=== PATIENT | female | born 1985 | race Hispanic/Latino ===

== ENCOUNTER 2019-04-10 16:56 | Emergency (ER) | payer OTHER, SELFPAY ==
[2019-04-10 17:05] VITALS: BP 133/93; PULSE 82; RESP 14; TEMP 36.9; O2SAT 100
--- NOTE | 2019-04-10 19:07 | ED.URI ---
HPI - URI/Sore Throat General Chief Complaint: Upper Respiratory Symptoms Stated Complaint: SINUS INFECTION Time Seen by Provider: 04/10/19 18:07 Source: patient Mode of arrival: Ambulatory Limitations: no limitations History of Present Illness HPI Narrative: Patient is a 33-year-old female here for evaluation of approximately 12 days of tenderness in her sinuses around her forehead and also under her eyes. She states that she has been having headaches. It is sore when she touches the area. Sore when she bends over. No specific fevers. Does feel congested. Has been taking decongestants and also Tylenol without any improvement in her symptoms. Related Data Previous Rx's Medication Instructions Recorded amoxicillin-pot clavulanate 1 tab PO BID 10 Days #20 tab 04/10/19 [Augmentin] Review of Systems Constitutional Constitutional: Denies fever(s) and Reports headache(s) ENT Ears, Nose, Mouth, and Throat: Denies change in voice, Denies dental pain, Denies vertigo, Denies dizziness, Reports facial pain, Reports headache(s), Reports nasal congestion, Reports nasal discharge, Denies neck pain, Denies disequilibrium, Denies tinnitus, Reports sinus pain, Reports sinus pressure, Denies sore throat and Denies throat swelling Cardiovascular Cardiovascular: Denies chest pain and Denies dyspnea Respiratory Respiratory: Denies cough and Denies dyspnea Musculoskeletal Musculoskeletal: Denies arthralgias and Denies neck pain Integumentary/Breasts Skin/Breast: Denies rash Neurologic Neurologic: Denies behavioral changes, Denies vertigo, Denies dizziness, Reports headache(s) and Denies disequilibrium Psychiatric Psychiatric: Denies behavioral changes Hematologic/Lymphatic Hematologic/Lymphatic: Denies easy bleeding and Denies easy bruising Allergic/Immunologic Allergic/Immunologic: Denies throat swelling Patient History Medical History Diarrhea (Inactive) (Inactive) Social History Smoking Status: Never smoker Smoking Status: Never smoker Exam Initial Vital Signs Initial Vital Signs: Vital Signs Temperature 98.5 F 04/10/19 17:05 Pulse Rate 82 04/10/19 17:05 Respiratory Rate 14 04/10/19 17:05 Blood Pressure 133/93 H 04/10/19 17:05 Pulse Oximetry 100 04/10/19 17:05 Const General: cooperative, comfortable and well developed Orientation: alert and awake HENMT Head: normal to inspection and normocephalic Ears: TM's normal bilaterally Nose: external nose normal Face and sinus: sinuses tender and sinus tenderness frontal and maxillary Teeth and gingiva: dentition normal Neck Neck: no meningeal signs Resp Effort & Inspection: normal respiratory effort Auscultation: clear to auscultation bilaterally Cardio Rate: regular rate Rhythm: regular rhythm GI Inspection: non-distended Palpation: soft and No tender Skin Lesions: no lesions Rashes: no rashes Neuro General: alert, awake and oriented x3 Cognition: normal cognition Speech: speech normal Extrem General: normal to inspection and capillary refill normal Psych Appearance: grossly normal and well kempt Course Vital Signs Vital signs: Vital Signs - 8 hr 04/10/19 19:27 Pulse Rate 93 H Respiratory Rate 12 Blood Pressure [Right Arm] 126/94 H Pulse Oximetry 98 MDM - URI/Sore Throat MDM Narrative Medical decision making narrative: Patient has had almost 2 weeks of consistent symptoms. She has been taking decongestants at home without any improvement of her symptoms. Is tender to palpation over the frontal maxillary sinuses here in the ER. Had a long discussion with the patient regarding her symptoms. We did discuss the use of antihistamine such as Claritin or Clarisse. We also discussed the use of Flonase or Nasonex. I did advise her that I would recommend she continue to use these medications. Given the length of her symptoms and the severity of her symptoms I did give her prescription for antibiotics. Discussed return precautions and follow-up instructions. She expressed understanding and agreement with plan. Discharge Plan Departure Patient Disposition: Home Clinical Impression: Sinusitis Qualifiers: Sinusitis location: maxillary Chronicity: unspecified Qualified Code(s): J32.0 - Chronic maxillary sinusitis Discharge Date/Time: 04/10/19 19:30 Instructions: DI for Sinusitis Activity Restrictions/Additional Instructions: Recommend that you start on either Claritin or Calrisse like we discussed. Take the antibiotics as directed. Return to the ER for any new or worsening symptoms. Prescriptions: New amoxicillin-pot clavulanate [Augmentin] 875-125 mg tablet 1 tab PO BID 10 Days Qty: 20 RF: 0
[2019-04-10 19:27] VITALS: BP 126/94; PULSE 93; RESP 12; O2SAT 98
== END 2019-04-10 19:30 | disposition home or self-care (01) ==
PROVIDERS: Emergency Provider Emergency Medicine
DX: J32.0 Chronic maxillary sinusitis (principal)
CPT/HCPCS: 99283

== ENCOUNTER → 2019-05-31 13:41 | Outpatient (CLI) | payer OTHER, SELFPAY ==
--- NOTE | 2019-05-31 | DI.MG.S_ITS ---
BILATERAL DIGITAL DIAGNOSTIC MAMMOGRAM 3D/2D: 05/31/2019 CLINICAL: Baseline exam. Right breast mass. Family history of breast cancer. No prior exams were available for comparison. The tissue of both breasts is extremely dense, which lowers the sensitivity of mammography. There is a focal asymmetry with grouped calcifications in the right breast at 9 o'clock middle depth. This correlates as palpated. There also are grouped heterogeneous calcifications in the right breast at 11 o'clock posterior depth. No other significant masses, calcifications, or other findings are seen in either breast. IMPRESSION: INCOMPLETE: NEEDS ADDITIONAL IMAGING EVALUATION The focal asymmetry in the right breast at 9 o'clock middle depth is indeterminate. The grouped heterogeneous calcifications in the right breast at 11 o'clock posterior depth are indeterminate. A targeted ultrasound of the right breast is recommended and will be performed immediately following this exam. This exam was interpreted at Station ID: [id number]. NOTE: For mammograms, a report in lay terms will be sent to the patient. Approximately 15% of breast malignancies will not be visualized mammographically. In the management of a palpable breast mass, a negative mammogram must not discourage biopsy of a clinically suspicious lesion. Electronically Signed By: Mariam Maloney M.D. lk/:05/31/2019 14:21:46 ACR BI-RADS Category 0: Incomplete [id number]
--- NOTE | 2019-05-31 | DI.US.S_ITS ---
ULTRASOUND OF RIGHT BREAST: 05/31/2019 CLINICAL: Palpable right breast lump (2 nodules seen on mammo...palp is one). Comparison is made to exam dated: 05/31/2019 [facility]. Color flow and real-time ultrasound of the right breast were performed on the areas of interest. Leslie scale images of the real-time examination were reviewed. There is a 0.8 cm x 0.5 cm x 0.8 cm irregular mass in the right breast at 10 o'clock anterior depth. This irregular mass is hypoechoic. This correlates as palpated and with mammography findings. There also is a 0.7 cm x 0.4 cm x 0.7 cm irregular mass in the right breast at 8 o'clock anterior depth. This irregular mass is hypoechoic. There is no definite mammographic or clinical correlate to this lesion. There is no definite sonographic correlate to the clustered calicifications at 11 o'clock at a posterior depth seen on mammogram. There are multiple lymph nodes with eccentric cortical thickening in the right axillary tail. IMPRESSION: HIGHLY SUGGESTIVE OF MALIGNANCY The 0.8 cm x 0.5 cm x 0.8 cm irregular mass in the right breast at 10 o'clock anterior depth is highly suggestive of malignancy. An ultrasound guided biopsy is recommended. The 0.7 cm x 0.4 cm x 0.7 cm irregular mass in the right breast at 8 o'clock anterior depth is highly suggestive of malignancy. An ultrasound guided biopsy is recommended. The multiple lymph nodes with eccentric cortical thickening in the right axillary tail are highly suggestive of malignancy. An ultrasound guided biopsy is recommended. After ultrasound guided biopsy is performed, evaluation for steroetactic biopsy of the calcifications at 11 o'clock can be made on clinical grouds. This exam was interpreted at Station ID: [id number]. SUMMARY: This was discussed with the patient by Dr. Rolon at the time of the exam. Electronically Signed By: Mariam jaimes/:05/31/2019 17:38:10 letter sent: Biopsy Required Ultrasound BI-RADS: 5 Highly suggestive of malignancy
--- NOTE | 2019-06-19 13:35 | ONC.MSW ---
Description: Initial Referral Navigation T/C Activity: Called pt to confirm that we've received her referral, introduced my role as navigator, and discussed ongoing assistance and support available in clinic. She has 3-small children, including an . Her is active duty [employer], and is applying to remain here in [place] for 1-more year, as leave. She explained that he was given transfer orders to relocate to [place] in July, but he's hoping to take a year off and care for the kids and her while she receives treatment. She will most likely need a medical status letter once they are ready to submit that packet, [employer] explained that we can certainly provide her with that when the time comes. Discussed the availability of the [facility], the [facility] Medical Relief Fund, and caregiver/pediatric support. Referred to scheduling for an urgent appt. time on 06/26. Pt will be getting her port placed tomorrow, and MRI later this week. [employer] will plan to meet with her at that time for initial f/f visit.
== END ==
PROVIDERS: PCP Family Medicine; Visit Provider Family Medicine
DX: R92.8 Other abnormal and inconclusive findings on diagnostic imaging of breast (principal); R92.1 Mammographic calcification found on diagnostic imaging of breast; N63.11 Unspecified lump in the right breast, upper outer quadrant; N63.13 Unspecified lump in the right breast, lower outer quadrant; Z80.3 Family history of malignant neoplasm of breast
CPT/HCPCS: 76642; 77066; G0279

== ENCOUNTER → 2019-06-12 12:30 | Outpatient (CLI) | payer OTHER, SELFPAY ==
--- NOTE | 2019-06-12 | DI.MG.S_ITS ---
UNILATERAL RIGHT DIGITAL DIAGNOSTIC MAMMOGRAM POST-NEEDLE BIOPSY: 06/12/2019 CLINICAL: Right breast mass-post clip. Comparison is made to exams dated: 05/31/2019 ultrasound and 05/31/2019 mammogram - [facility]. The tissue of right breast is extremely dense, which lowers the sensitivity of mammography. There is a marker clip in the appropriate position in the right breast at 9 o'clock anterior depth. This marker clip placement is at the biopsy site. There also is a marker clip in the appropriate position in the right breast at 8 o'clock anterior depth. This marker clip placement is at the biopsy site. Additionally, there is a marker clip in the appropriate position in the right axilla. This marker clip placement is at the biopsy site. IMPRESSION: POST PROCEDURE MAMMOGRAM FOR MARKER PLACEMENT There was a successful marker clip placement in the right breast at 9 o'clock anterior depth. There was a successful marker clip placement in the right breast at 8 o'clock anterior depth. There was a successful marker clip placement in the right axilla. This exam was interpreted at Station ID: [id number]. NOTE: For mammograms, a report in lay terms will be sent to the patient. Approximately 15% of breast malignancies will not be visualized mammographically. In the management of a palpable breast mass, a negative mammogram must not discourage biopsy of a clinically suspicious lesion. Electronically Signed By: Nabil Rolon M.D. aty/:06/12/2019 18:20:09 ACR BI-RADS Category Post-procedure mammogram for marker placement
--- NOTE | 2019-06-12 | PATH_ITS ---
[facility] Accession Number: [id number] . 01 Material submitted: . lymph node - RIGHT AXILLARY LYMPH NODE . 01 Diagnosis: Right Axillary Lymph Node, Core Biopsy: Metastatic mammary carcinoma, ductal type. [facility] 06/15/2019 1209 Local . 01 Comment: The core biopsies conisist of an apparent lymph node partially effaced by a metastatic adenocarcinoma forming gland and cords. The core biopsy also contains attached adipose tissue; however, determining whether the tumor extends beyond the capsule into adipose tissue is not clear in these particular sections. A limited panel of *immunostains is performed to confirm breast origin, with controls stained appropriately. The tumor shows uniform expression with the assembler lay ups factor GATA3 and variable expression with estrogen receptor, findings which confirm breast origin, in this particular clinical setting (the patient's results from right breast core biopsies are noted, [id number], 06/12/2019). . * This test was developed and its performance characteristics determined by [employer]. It has not been cleared or approved by the U.S. Food and Drug Administration. The FDA has determined that such clearance or approval is not necessary. This test is used for clinical purposes. It should not be regarded as investigational or for research. . 01 Electronically signed: . Tomasa Becker MD, Pathologist NPI- [id number] . 01 Gross description: . Received in one formalin-filled container, labeled with the patient's name and designated right axillary lymph node, are multiple 0.1 cm in diameter, cylindrical-shaped portions of tissue which range in length from 0.1 cm to 0.5 cm. The specimen is entirely submitted in one cassette. ([id number]) /[facility] 06/13/2019 0219 Local . 01 Pathologist provided ICD-10: C77.9 . 01 CPT . 495726, W66443, S36860 Performed at: 01 [facility] [address], [place], [place] [id number] MD Howard Mireles MD Phone: [phone]
--- NOTE | 2019-06-12 | PATH_ITS ---
[facility] Accession Number: [id number] . 01 Material submitted: . PART A: breast - RIGHT BREAST MASS PART B: breast - RIGHT BREAST MASS 8:00 . 01 Clinical history: . RIGHT BREAST MASS . 02 Diagnosis: A. Right Breast Mass, Needle Core Biopsy: Invasive carcinoma with the following features: 1. Mitch grade: 3 of 3 (tubules 3/3; nuclei 3/3; mitotic activity 2/3). 2. Greatest linear extent: 8 mm. 3. Carcinoma in situ: Not identified. 4. Microcalcifications: Not identified. 5. Lymph-vascular invasion: Not identified. 6. Prognostic markers: Please see microscopic description. . B. Right Breast Mass at 8 o'clock: Infiltrating carcinoma with the following features: 1. Scuddy grade: 3 of 3 (tubules 3/3; nuclei 3/3; mitotic activity 2/3). 2. Greatest linear extent: 7 mm. 3. Carcinoma in situ: Not identified. 4. Microcalcifications: Not identified. 5. Lymph-vascular invasion: Suspicious foci present. 6. Prognostic markers: Please see microscopic description. [facility] 06/14/2019 1502 Local . 02 Comment: life assurance representative performed by Dr. Kane Son. . Results discussed with Dr. Pinzon on 06/03/2019 at approximately 3:30 p.m. . 02 Electronically signed: . Ellen Parra MD, Pathologist NPI- [id number] . 01 Gross description: . Received two formalin-filled containers, both labeled with the patient's name: . A. In a container labeled #1, the specimen is received with a plastic filter in container, sample loose in container and consists of multiple yellow-sauceda portions of tissue which range in size from less than 0.1 cm to 0.7 x 0.2 x 0.2 cm. The specimen is filtered, wrapped, and entirely submitted in cassette A. B. In a container labeled #2, the specimen is received with a plastic filter in container, sample loose in container and consists of multiple urbina-sauceda to yellow-sauceda portions of tissue which range in size from less than 0.1 cm to 1.5 x 0.2 x 0.2 cm. The specimen is filtered and entirely submitted in cassette B. . Collection date: 06/12/19. Collection time per containers: Part A - 1:20 p.m., Part B - 1:40 p.m. Total fixation time: Approximately 13 hours. (DC:[id number]) /[facility] 06/13/2019 0230 Local . 02 Microscopic: . Immunohistochemical stain for e-cadherin is performed on blocks A1 and B1 with the following findings. The controls showed appropriate reactivity: . RESULTS: Block A1: E-cadherin: Diffusely and strongly positive. This staining pattern supports the diagnosis of infiltrating ductal carcinoma. . . Block B1: E-cadherin: Diffusely and strongly positive. This staining pattern supports the diagnosis of infiltrating ductal carcinoma. . CAP BREAST BIOMARKER REPORT: . Part A: . Estrogen Receptor (ER) Status: Positive, approximately 75% of tumor nuclei. Average intensity of staining: Moderate. Primary antibody: SP1 Progesterone Receptor (PgR) Status: Positive, approximately 30% of tumor nuclei. Average intensity of staining: Moderate. Primary antibody: 1E2 HER2 (by immunohistochemistry): Positive at 3+. Primary antibody: 4B5 . Cold Ischemia and Fixation Times: Meets requirements in the latest version of the ASCO/CAP guidelines. Testing performed on Block Number: A1 . . Part B: . Estrogen Receptor (ER) Status: Positive, approximately 30% of tumor nuclei Average intensity of staining: Weak to moderate. Primary antibody: SP1 Progesterone Receptor (PgR) Status: Positive, approximately 15% of tumor nuclei Average intensity of staining: Weak to moderate. Primary antibody: 1E2 HER2 (by immunohistochemistry): Positive at 3+. Primary antibody: 4B5 . Cold Ischemia and Fixation Times: Meets requirements in the latest version of the ASCO/CAP guidelines. Testing performed on Block Number: B1 . TECHNICAL NOTE: The scoring criteria for breast biomarkers by immunohistochemistry is based on the current ASCO/CAP guidelines (Kirt et al, Arch Pathol Lab Med 2010: 134(6): 907-922 / Steph Ernandez al, Arch Pathol Lab Med 2014: 138(2): 241-256). Deparaffinized sections of formalin fixed tissue (along with appropriate positive controls) are incubated with the above antibody(s). Using the automated [place] stainer, tissue is incubated with the designated antibody* which is then localized by a non-biotin, dual polymer detection system. The external controls are reviewed for appropriate reactivity and found to be adequate. Results on the target cell population are indicated above. These tests have not been validated on decalcified tissue. * This test was developed and its performance characteristics determined by [facility]. It has not been cleared or approved by the U.S. Food and Drug Administration. The FDA has determined that such clearance or approval is not necessary. This test is used for clinical purposes. It should not be regarded as investigational or for research. . 02 Pathologist provided ICD-10: C50.911 . 02 CPT . 058251, 366103, D12303, 625466, 276115, 760312, 878915, 572182, 392675 Performed at: 01 [facility] [address] [place] [address], [place], [place] [id number] MD Howard Mireles MD Phone: [phone] Performed at: 02 [facility] [place] [address] [place], [place] [id number] MD Ximena Beckett MD Phone: [phone]
--- NOTE | 2019-06-12 | DI.US.S_ITS ---
ULTRASOUND GUIDED BIOPSY RIGHT BREAST WITH MARKING DEVICE INSERTED AND POST MAMMOGRAPHIC IMAGIN06/12/2019 CLINICAL: Right axillary node biopsy. PATIENT CONSENT: Risks (minor bleeding, infection, vasovagal reaction and repeat procedure), benefits and alternatives were explained to the patient and written informed consent was obtained. Correlation is made to exams dated: 05/31/2019 ultrasound and 05/31/2019 mammogram [facility]. An ultrasound guided biopsy using real-time ultrasound was performed for the oval lymph node located in the right axilla. This was described on the previous ultrasound report. The skin was prepped in the usual manner. Local anesthetic was administered to the access site. The abnormality was approached at 6 o'clock. An 18 gauge biopsy needle was placed adjacent to the abnormality through an introducer device under ultrasound guidance. Once the needle was documented to be in the correct location, six specimens were obtained using the [employer] biopsy device. A Vision clip was inserted into the biopsy cavity. A sterile dressing was applied to the access site. Post procedure mammographic imaging demonstrates the location device at the targeted area. The specimens were sent to the laboratory for pathological analysis. IMPRESSION: ULTRASOUND GUIDED BIOPSY MALIGNANT Ultrasound guided biopsy of the lymph node in the right axillary tail was successful. Pathology indicates malignant metastatic to axillary lymph nodes, mammary carcinoma ductal type. Pathology results are concordant with imaging findings. A surgical/oncologic consultation is recommended. This exam was interpreted at Station ID: [id number]. Nabil Rolon M.D. aty/:06/20/2019 07:14:41
--- NOTE | 2019-06-12 12:36 | DI.US.S_ITS ---
MULTIPLE ULTRASOUND GUIDED BIOPSIES RIGHT BREAST USING VACUUM DEVICE WITH MARKING DEVICES INSERTED AND POST MAMMOGRAPHIC IMAGIN06/12/2019 CLINICAL: Right breast masses x 2. PATIENT CONSENT: Risks (minor bleeding, infection, vasovagal reaction and repeat procedure), benefits and alternatives were explained to the patient and written informed consent was obtained. Correlation is made to exams dated: 05/31/2019 ultrasound and 05/31/2019 mammogram [facility]. An ultrasound guided biopsy using real-time ultrasound was performed for the palpable 0.8 cm x 0.5 cm x 0.8 cm irregular shaped mass located in the right breast at 9 o'clock anterior depth. This was described on the previous mammography and ultrasound reports. The skin was prepped in the usual manner. Local anesthetic was administered to the access site. A skin júnior was made in the breast. The abnormality was approached from the lateral aspect. A 13 gauge biopsy needle was placed adjacent to the abnormality under ultrasound guidance. Once the needle was documented to be in the correct location, six specimens were obtained using the [employer] biopsy system. A Vision clip was inserted into the biopsy cavity. A sterile dressing was applied to the access site. Post procedure mammographic imaging demonstrates the location device at the targeted area. The specimens were sent to the laboratory for pathological analysis. A second ultrasound guided biopsy using real-time ultrasound was performed for the irregular shaped mass located in the right breast at 8 o'clock anterior depth. This was described on the previous ultrasound report. The skin was prepped in the usual manner. Local anesthetic was administered to the access site. A skin júnior was made in the breast. The abnormality was approached from the lateral aspect. A 13 gauge biopsy needle was placed adjacent to the abnormality under ultrasound guidance. Once the needle was documented to be in the correct location, seven specimens were obtained using the M[employer]otome biopsy system. A clip was inserted into the biopsy cavity. A sterile dressing was applied to the access site. Post procedure mammographic imaging demonstrates the location device at the targeted area. The specimens were sent to the laboratory for pathological analysis. IMPRESSION: ULTRASOUND GUIDED BIOPSY MALIGNANT Ultrasound guided biopsy of the 0.8 cm x 0.5 cm x 0.8 cm mass in the right breast at 9 o'clock anterior depth was successful. Pathology indicates malignant invasive mammary carcinoma (IMC). Pathology results are concordant with imaging findings. A surgical/oncologic consultation is recommended. Ultrasound guided biopsy of the mass in the right breast at 8 o'clock anterior depth was successful. Pathology indicates malignant infiltrating carcinoma. Pathology results are concordant with imaging findings. A surgical/oncologic consultation is recommended. This exam was interpreted at Station ID: [id number]. Nabil Rolon M.D. aty/:06/20/2019 07:12:16
== END ==
PROVIDERS: PCP Family Medicine; Referring Provider Surgery; Visit Provider Surgery
DX: C50.811 Malignant neoplasm of overlapping sites of right female breast (principal); C50.511 Malignant neoplasm of lower-outer quadrant of right female breast; C77.3 Secondary and unspecified malignant neoplasm of axilla and upper limb lymph nodes; Z17.0 Estrogen receptor positive status [ER+]
CPT/HCPCS: 19083; 19084; 38505; 76942; 77065

== ENCOUNTER 2019-06-20 11:59 | Day surgery (SDC) | payer OTHER, SELFPAY ==
[2019-06-18 15:06] VITALS: BMI 32.8
[2019-06-20] VITALS (9 sets, daily range): BP systolic 116–139; BP diastolic 77–98; PULSE 77–97; RESP 11–112; TEMP 36.1–37.2; O2SAT 96–100; BMI 32.8
--- NOTE | 2019-06-20 | DI.RAD.S_ITS ---
PROCEDURE: XR CHEST 1V INDICATIONS: PORT A CATH INSERTION TECHNIQUE: 2 fluoroscopic operative views of the chest was acquired. COMPARISON: None. FINDINGS: 2 images demonstrate Port-A-Cath placement. The second image demonstrates the Port-A-Cath tip at the SVC right atrial junction. IMPRESSION: Fluoroscopic operative imaging utilized during Port-A-Cath placement. Dictated by: Alexis Mcgarry M.D. on 06/20/2019 at 17:28 Approved by: Alexis Mcgarry M.D. on 06/20/2019 at 17:29
--- NOTE | 2019-06-20 | DI.RAD.S_ITS ---
PROCEDURE: XR CHEST 1V INDICATIONS: POST PORT A CATH PLACEMENT TECHNIQUE: One view of the chest was acquired. COMPARISON: [facility], , XR CHEST 1V, 06/20/2019, 16:00. FINDINGS: Surgical changes and devices: Left chest Port-A-Cath, the tip of which projects in the proximal SVC. Lungs and pleura: Lungs are clear. No pleural effusions or pneumothorax. Mediastinum: Mediastinal contours appear normal. Heart size is normal. Bones and chest wall: No suspicious bony lesions. Overlying soft tissues appear unremarkable. IMPRESSION: Left chest Port-A-Cath in place, tip of which projects to the proximal SVC. Dictated by: Alexis Mcgarry M.D. on 06/20/2019 at 18:25 Approved by: Alexis Mcgarry M.D. on 06/20/2019 at 18:25
[2019-06-20] MEDS: LACTATED RINGERS 1,000 ML 100 ML IV ×2 (12:56→17:07)
[2019-06-20] MEDS: CELECOXIB 200 MG CAPSULE 400 MG PO (15:25)
--- NOTE | 2019-06-20 15:25 | PM.PREOP ---
Pre-operative Note Interval Note History & Physical reviewed/Exam performed by Physician: Yes Changes to H&P: No
[2019-06-20] MEDS: GABAPENTIN 300 MG CAPSULE PO (15:26)
[2019-06-20] MEDS: ACETAMINOPHEN 325 MG TABLET 975 MG PO (15:26)
[2019-06-20] MEDS: SCOPOLAMINE 1 PATCH TOP (15:26)
[2019-06-20] MEDS: CEFAZOLIN 2 GM/100 ML FROZ.PIGGY IV (15:30)
--- NOTE | 2019-06-20 15:47 | SUR.OPER ---
Supine on padded OR bed, head on pillow, arm padded and tucked at side, legs uncrossed, safety belt at thigh, tape over blanket over lower legs .
[2019-06-20] MEDS: HEPARIN 5,000 UNIT, SODIUM CHLORIDE 0.9% 50 ML IV (15:52)
[2019-06-20] MEDS: BUPIVACAINE 0.25% (PF) VIAL 30 ML INJ (15:52)
--- NOTE | 2019-06-20 17:29 | PM.OP.1 ---
Operative Date/Time/Diagnoses Date of procedure: 06/20/19 Time of procedure: 17:29 Pre-op diagnosis: Right breast cancer Post-op diagnosis: same Procedure & Clinicians Procedure: Port-A-Cath placement Same procedure as scheduled: Yes Indications: 33-year-old female with right breast cancer locally advanced presents for Port-A-Cath placement Surgeon: Markus Pinzon Anesthesia Type: General Operative Notes Findings: Tip of the catheter projects into the SVC chest x-ray is pending Estimated Blood Loss (mL): 20 Procedure in detail: Patient was brought to the operating room placed supine on table. Bilateral lower extremity compressive devices were applied. General anesthesia was induced and she was intubated with an LMA. She was then prepped and draped in usual sterile fashion. Time-out was performed ensure the correct patient procedure necessary equipment within the operating room. She received 2 g of Ancef prior to incision. Under ultrasound guidance the left internal jugular vein was accessed under direct visualization. The guidewire was then threaded through the needle. Unfortunately after multiple attempts I was unable to get the wire to drop down to the heart as it kept crossing midline to the other side. Next the left subclavian vein was accessed. The guidewire was then threaded through the needle and its placement was concerned with fluoroscopy. The dilator was then placed over the guidewire. The catheter was then inserted through the sheath. Placement was again confirmed with fluoroscopy. A subcutaneous pocket was made in the left chest wall. The port was attached after it was primed with heparined saline. The port was tested to ensure that it flushed easily and had good blood return. The port was then secured to the underlying fascia using interupted 0 Prolene suture. Hemostasis was achieved. The wound was irrigated with sterile saline. The subcutaneous tissues were reapproximated with the 3 0 Vicryl and then skin closed with 4-0 Monocryl. The skin was sealed with Dermabond. Patient tolerated procedure well. The sponge and instrument count at the end operation was correct. Patient emerged from general anesthesia was extubated and taken to the postoperative care unit in stable condition Complications: none Post-operative Condition: stable Disposition: same day surgery
--- NOTE | 2019-06-20 18:05 | SUR.PHASEII ---
Patient in stable condition. Pain 3/10; ice pack to site; dressings CDI. Drinking cranberry juice.
[2019-06-20] MEDS: OXYCODONE IR 5 MG TABLET PO (18:11)
--- NOTE | 2019-06-20 18:36 | SUR.PHASEII ---
Spouse very supportive, talked at length with pt/spouse about cancer pre & post-op. Pt voided, ice pack sent home with them. stable, drowsy. no dizziness. transferred without difficulty.
--- NOTE | 2019-06-20 18:47 | SUR.PHASEII ---
Jose Manuel reviewed all meds including scope patch
== END 2019-06-20 18:44 | disposition home or self-care (01) ==
PROVIDERS: PCP Family Medicine; Referring Provider Surgery; Visit Provider Surgery
PROC: (CPT 36561; principal; 2019-06-20 13:15)
DX: C50.911 Malignant neoplasm of unspecified site of right female breast (principal); Z45.2 Encounter for adjustment and management of vascular access device
CPT/HCPCS: 36561; 71045; 76000; C1788; J0690; J1100; J1644; J1885; J2250; J2405; J2704; J3010

== ENCOUNTER → 2019-06-22 08:19 | Outpatient (CLI) | payer OTHER, SELFPAY ==
--- NOTE | 2019-06-22 08:22 | DI.CT.S_ITS ---
PROCEDURE: CT CHEST ABD PEL W CON INDICATIONS: breast cancer TECHNIQUE: After the administration of oral and intravenous contrast, 5 mm thick sections acquired from the lung apices to the symphysis. 5 mm coronal and sagittal reformats were performed, with additional 7 mm coronal MIP reformats through the lungs. For radiation dose reduction, the following was used: automated exposure control, adjustment of mA and/or kV according to patient size. COMPARISON: [facility], MR, MR BREAST BI WO/W CON, 06/22/2019, 9:01. FINDINGS: Image quality: Excellent. CHEST: Lungs and pleura: No acute airspace opacities. No pleural effusions or pneumothorax. Central and peripheral airways appear patent and normal in caliber. Mediastinum: Heart size is normal. No pericardial effusion. No mediastinal or hilar adenopathy by size criteria. Thoracic aorta and central pulmonary arteries are normal in size. Esophagus is normal in caliber. No hiatal hernia. Chest wall: No left-sided axillary or bilateral supraclavicular adenopathy by size criteria. There is, however, a finding of enlarged and mildly hyperenhancing lymph nodes including a node with a localization clip within, at the right axilla. The largest node in this area measures up to 1.9 cm. Additionally, at approximately the 9:00 position lateral right breast there is a small ovoid mass containing a metallic localization clip indicating site of prior biopsy in this patient with clinically reported breast carcinoma. Thyroid gland appears normal. Port-A-Cath in normal position from left-sided approach. ABDOMEN: Solid organs: Liver is normal in size and enhancement. Gallbladder is partially contracted. Biliary system is non dilated. Pancreas enhances normally. Spleen is normal in size and enhancement. No adrenal nodules. Kidneys demonstrate normal size and enhancement, without hydronephrosis. Peritoneum and bowel: Bowel loops demonstrate normal wall thickness and caliber. No free fluid or air. Nodes and vessels: No retroperitoneal or mesenteric adenopathy by size criteria. Aorta and inferior vena cava are normal in size. Miscellaneous: No ventral hernias. PELVIS: Genitourinary: Bladder wall thickness is normal. Miscellaneous: No inguinal hernias or adenopathy. Bones: No suspicious bony lesions. No vertebral body compression fractures. IMPRESSION: Right lateral breast mass which has been previously biopsied, abnormal enlarged lymph nodes which are mildly hyperenhancing at the right axilla, one of which contains a metallic localization clip representing site of prior axillary node biopsy. No metastatic disease elsewhere is found. Port-A-Cath positioning normal from left-sided approach. Dictated by: Luis Gant M.D. on 06/22/2019 at 11:08 Approved by: Luis Gant M.D. on 06/22/2019 at 11:17
--- NOTE | 2019-06-22 08:22 | DI.MRI.S_ITS ---
BREAST MRI OF BOTH BREASTS: 06/22/2019 CLINICAL: Breast Cancer. Comparison is made to exams dated: 06/12/2019 mammogram, 05/31/2019 mammogram, 06/12/2019 ultrasound biopsy, and 05/31/2019 ultrasound - [facility]. Informed consent was obtained from the patient. Axial T1 and T2 images were obtained. Bilateral background breast enhancement is mild. TECHNIQUE: The patient was placed prone in a dedicated breast imaging coil. Precontrast axial STIR and 3D FLASH without fat saturation sequences were obtained. Both before and after bolus injection of contrast, sequential 1-minute axial 3D FLASH with fat saturation sequences for 3 time points, with subtraction images and maximum intensity projections (MIP's) generated. Delayed sagittal FLASH images with fat saturation were also obtained. Computer-aided detection, including computer algorithm analysis of MRI image data for lesion detection and characterization, pharmacokinetic analysis, with further physician review for interpretation, was performed. COMPARISON: [facility], US, US BX BREAST PERC W VAC DEVICE, 06/12/2019, 12:49. [facility], US, US BREAST RT LIMITED, 05/31/2019, 13:59. [facility], MG, MM DIAGNOSTIC MAMMO BI, 05/31/2019, 14:01. [facility], MG, MM DIAGNOSTIC MAMMO UNILAT RT2D, 06/12/2019, 14:43. [facility], CT, CT CHEST ABD PEL W CON, 06/22/2019, 10:32. FINDINGS: Image quality: Excellent. There is mild background parenchymal enhancement. There is extreme fibroglandular breast tissue bilaterally. Right breast: There are enhancing mass lesions in the lower outer quadrants of the right breast with two biopsy markers noted in close proximity to each other as noted on comparison ultrasounds. One at the 8:00 axis and the second at the 9:00 axis correlating with biopsy proven malignancies. The 9:00 mass measures approximately 1.4 x 1.0 cm in transverse dimension. The 10:00 mass measures approximately 0.9 x 0.7cm in transverse dimension. There is an additional 7mm oval enhancing mass seen immediately adjacent and inferior to the 8:00 mass likely representing a satellite lesion. There is also mild non-mass enhancement surrounding these masses which may represent reactive changes from recent biopsy; however, there are several small nodular enhancing masses measuring up to 5mm in size extending from the level of the biopsied masses towards the right nipple in a curvilinear pattern within the lateral aspect of the right breast. The most distal mass is visualized to be less than 1.5 cm from the nipple and no suspicious nipple enhancement identified. Multiple prominent and enlarged right axillary lymph nodes are visualized with two largest measuring up to 1.8 cm in maximum dimension. One of these contains a biopsy marker consistent with known metastatic matthew involvement. Additionally, there is a mildly enlarged 1.2 cm lateral level 2 right axillary node. Left breast: There is no suspicious mass, architectural distortion, or non-mass enhancement in the left breast. No suspicious nipple or skin abnormalities. No axillary or internal mammary chain adenopathy. Miscellaneous: Right tunneled port device is noted. Unremarkable appearance of the visualized upper abdominal and chest structures. IMPRESSION: INCOMPLETE: NEEDS ADDITIONAL IMAGING EVALUATION 1. Several adjacent irregular enhancing masses in the lower outer quadrant of the right breast with two correlating with biopsy proven malignancies. There are several enhancing nodular masses measuring up to 5mm in size extending anteriorly towards the nipple within the lateral aspect of the right breast which are also suspicious for malignant disease. The most distal 5mm mass is visualized less than 1.5 cm from the nipple. A second look ultrasound for further evaluation can be considered if this would change clinical or surgical treatment plan. 2. Biopsy proven metastatic right axillary adenopathy. 3. No MRI evidence for malignancy in the left breast. COMMENT: The imaging literature indicates that a negative contrast breast MRI examination has a high sensitivity and a moderate specificity for detecting and excluding invasive carcinomas to a detection threshold of 3-5 mm; nonetheless, appropriate clinical and mammographic follow-up are recommended. MRI is not sensitive for detecting DCIS (ductal carcinoma in situ) and may not detect large invasive neoplasms that show only minimal enhancement such as mucinous carcinoma. If there are suspicious calcifications or clinically worrisome palpable masses, then biopsy should still be considered. Invasive neoplasms can be hidden by co-existent and benign enhancement caused by mastitis, hormone therapy effects, radiation therapy, , and recent biopsy or surgery. False positive examinations can occur in a number of circumstances, including breasts that have recently been subject to invasive procedures and those that contain atypical ductal hyperplasia, hormonally stimulated glandular tissue, fat necrosis, or radial scars. This exam was interpreted at Station ID: [id number]. Electronically Signed By: Nabil Rolon M.D. aty/:06/22/2019 21:22:37 copy to: HARRY FELIPE copy to: ELIDIA ECKERT D.O., [facility], ph: [phone], fax: [phone] letter sent: Additional Imaging Needed ACR BI-RADS Category 0: Incomplete [id number]
== END ==
PROVIDERS: PCP Family Medicine; Referring Provider Family Medicine; Visit Provider Surgery
DX: C50.511 Malignant neoplasm of lower-outer quadrant of right female breast (principal); C77.3 Secondary and unspecified malignant neoplasm of axilla and upper limb lymph nodes; N63.15 Unspecified lump in the right breast, overlapping quadrants; Z95.828 Presence of other vascular implants and grafts
CPT/HCPCS: 71260; 74177; 77049; A9579; Q9967

== ENCOUNTER → 2019-07-06 13:47 | Outpatient (CLI) | payer OTHER, SELFPAY ==
--- NOTE | 2019-07-06 13:48 | DI.CT.S_ITS ---
PROCEDURE: CT HEAD/BRAIN WO CON INDICATIONS: abnormal bone scan head frontal TECHNIQUE: Noncontrast 4.5 mm thick angled axial sections acquired from the foramen magnum to the vertex, with coronal and sagittal reformats. For radiation dose reduction, the following was used: automated exposure control, adjustment of mA and/or kV according to patient size. COMPARISON: [facility], DC, DC BONE SCAN WHOLE BODY, 06/27/2019, 12:26. FINDINGS: Image quality: Excellent. CSF spaces: Basal cisterns are patent. No extra-axial fluid collections. Ventricles are normal in size and shape. Brain: No midline shift. No intracranial masses or hemorrhage. Leslie-white matter interface is normal. Skull and face: Calvarium and visualized facial bones are intact, without suspicious lesions. No lytic or blastic lesions identified in the calvarium. 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 Mucosal thickening noted in the frontal sinuses and the right frontal recess compatible with chronic sinusitis. mastoids are clear. IMPRESSION: 1. No intracranial disease process. 2. No evidence of osseous metastatic disease. 3. Chronic sinusitis involving the frontal sinuses and the right frontal recess corresponding to bone scan abnormality. Dictated by: Zenobia Naik MD, PhD on 07/06/2019 at 15:03 Approved by: Zenobia Naik MD, PhD on 07/06/2019 at 15:06
== END ==
PROVIDERS: PCP Family Medicine; Referring Provider Internal Medicine Hematology & Oncology; Visit Provider Internal Medicine Hematology & Oncology
DX: R94.8 Abnormal results of function studies of other organs and systems (principal); C50.911 Malignant neoplasm of unspecified site of right female breast; J32.1 Chronic frontal sinusitis
CPT/HCPCS: 70450

== ENCOUNTER 2019-07-18 13:49 | Inpatient (IN) | payer OTHER, SELFPAY ==
[2019-07-18] VITALS (7 sets, daily range): BP systolic 94–105; BP diastolic 43–65; PULSE 123–130; RESP 17–20; TEMP 37.6–39.2; O2SAT 94–100; BMI 31.4
--- NOTE | 2019-07-18 15:55 | PC.NURSE ---
1515 - Pt in room, Resting in bed. Reports feeling fatigued, and states that she has bone pain. 4 of 10. Reports onset of N/V/D and fever yesterday. Temp 102.6 oral. Removed extra blanket, however pt report feeling chills. I am so cold. Pt states that she has not been out of her house much since last chemo treatment. Oriented to room and routine. Educated to safety and call light use. Updated on treatment plan. Orders pending.
--- NOTE | 2019-07-18 15:59 | P.HP_ITS ---
History of Present Illness History of Present Illness Date Patient Seen: 07/18/19 Time Patient Seen: 15:00 Chief complaint: Breast cancer, dehydration,febrile Narrative: Patient is a 34-year-old female with newly diagnosed ER+, ME+, HER2+, node positive invasive breast cancer who was sent over from infusion clinic due to fever, nausea vomiting and diarrhea of 1 day duration. Patient was diagnosed with right breast invasive breast cancer with positive axillary lymph node in June of this year. She had Port-A-Cath placed on 06/20/2019. She was started on neoadjuvant chemotherapy on 07/05/2019. She received Neulasta the following day on 07/06/2019. She had expected chemotherapy side effects but was feeling all better by a few days ago. Yesterday she had sudden onset of fever, rigors, myalgias. She had 3 episodes of vomiting and nonbloody diarrhea yesterday and again another 3 episodes of both today. She has had mild abdominal cramping. She has also had headache during this time. She denies urinary symptoms. She states she has felt at times short of breath but no cough. Patient lives with spouse and kids and has not had recent known sick contacts. Dr. Mojica evaluated her in oncology clinic and noted she was ill appearing and febrile with temp of 102.8?. Additionally she was mildly hypertensive BP 99 systolic, tachycardic heart rate 120, but breathing normally with O2 sat 96%. She appeared dehydrated and was given 2 L normal saline. Laboratories revealed WBC 63313, hemoglobin 13.2, platelets 110. She was in new renal failure with creatinine 1.3 versus baseline creatinine 0.57. Electrolytes were abnormal with sodium 134, potassium 3.2, magnesium 1.2. LFTs mildly elevated with AST 43 and ALT 50 with normal bilirubin. Patient History Medical History (Updated 07/18/19 @ 15:33 by Mauricio Montano MD) Cancer of right breast (Acute) section wound complications (Acute) Diarrhea (Inactive) (Inactive) Surgical History (Updated 06/26/19 @ 11:00 by Bambi Shelton MD) S/P right breast biopsy (Acute) [place] teeth removed (Acute) Family & Social History Family History (Updated 06/26/19 @ 11:02 by Bambi Shelton MD) Grandmother Pancreatic cancer Diabetes mellitus Breast cancer Cancer Father Heart disease Unknown Stomach cancer Colon cancer Social History: household members spouse,children Prior Living Arrangements House Safety & Behavioral: Feels Safe in Current Yes Environment Been Physically Hurt or No Threatened By a Person Suicidal Ideation Description None Tobacco & Substance use: Smoking Status Never smoker alcohol intake never Substance Use Type does not use Meds Home Medications and Allergies Home Medications Medication Instructions Recorded Confirmed Type acetaminophen [Tylenol] 650 mg PO QID PRN #60 cap 06/20/19 07/05/19 Rx dexamethasone 8 mg PO BID 07/05/19 07/05/19 History ondansetron 4 mg PO Q6H #60 tab 07/05/19 Rx Allergies Allergy/AdvReac Type Severity Reaction Status Date / Time shrimp Allergy Severe SOA Verified 06/20/19 13:08 iodine AdvReac PT STATES Verified 06/20/19 13:08 strawberry AdvReac Hives Verified 06/26/19 10:32 Review of Systems Review of Systems ROS: Yes All systems reviewed with the patient and are negative except as otherwise documented Exam Vital Signs (past 8 hours): - 07/18/19 14:15 07/18/19 15:50 Temperature 102 F H 102.6 F H Pulse Rate 123 H 125 H Respiratory Rate 17 20 Blood Pressure 105/65 101/60 Pulse Oximetry 100 Oxygen Flow Rate 0 Narrative Exam Narrative: General: Patient is slightly lethargic very ill-appearing female. HEENT: Pupils equal and reactive, dry mucous membranes Neck: No lymphadenopathy Lungs: Breathing is nonlabored, Clear to auscultation bilaterally Heart: Tachycardic with regular rhythm, no murmur Abdomen: Soft and nontender, no organomegaly Back: No CVAT Extremities: No edema or joints Skin: No rash or petechia Neurological: Oriented x3, nonfocal Assessment & Plan Assessment & Plan narrative: This is a 34-year-old female with newly diagnosed invasive breast CA, status post neoadjuvant chemo 07/05/2019, Neulasta 07/06/2019 presents with 1 day onset of fever, myalgias, headache, nausea, vomiting and diarrhea. 1. Severe sepsis, present on admission, active -patient presents ill with high fever, myalgias, headache, GI symptoms, hypotension, tachycardia, remains mildly hypotensive and tachycardic after 2 L NS -leukocytosis with WBC 28 K may be rebound leukocytosis from Neulasta given on 07/06/2019 -sofa score 2 for CHASE and low platelet -blood cultures Port-A-Cath and peripheral, urinalysis culture if indicated, GI panel -check procalcitonin, lactate, CRP -chest x-ray one view, rule out pneumonia -respiratory panel, rule out influenza a and B, treat with Tamiflu if positive influenza -COVID-19 can present with fever and GI only symptoms in about 10% of cases, although patient does note subjective dyspnea without cough -start empiric antibiotic therapy with vancomycin and cefepime until determine viral versus bacterial infectious source -Tylenol 975 mg q.8 hours scheduled for fever and myalgias 2. Acute kidney injury, present on admission, active -BUN 25, creatinine 1.3, EGFR 47 vs baseline creatinine 0.57 -likely prerenal secondary sepsis and volume depletion -2 L NS administered at Oncology Clinic -continue NS plus 20 mEq KCL at 100 cc/hour -monitor urine output and recheck renal function in a.m. 3. Hypomagnesemia, hypokalemia, present on admission, active -magnesium 1.2, provide magnesium sulfate 2 g IV -potassium 3.2, provide K rider 40 mEq IV -recheck lytes in a.m. 4. Nausea, vomiting and diarrhea, present on admission, active -provide supportive therapy with IV fluids, Zofran -GI panel -replete electrolytes as necessary -full liquid diet as tolerated 5. Right invasive breast cancer, active -status post neoadjuvant chemo 07/05/2019, Neulasta 07/06/2019 DVT prophylaxis: Lovenox Patient is admitted to inpatient services with expected greater than 2 midnight hospital stay. Quality VTE Deep Vein Thrombosis/Pulmonary Embolism Present on Admission: No
[2019-07-18 16:24] LABS: Influenza A - CEPHEID Flu A NEGATIVE (NEGATIVE); Influenza B - CEPHEID Flu B NEGATIVE (NEGATIVE)
[2019-07-18 16:50] LABS: Lactate (Lactic Acid) 1.9 mmol/L (0.7-2.1)
--- NOTE | 2019-07-18 16:58 | DI.RAD.S_ITS ---
PROCEDURE: XR CHEST 1V INDICATIONS: sepsis TECHNIQUE: One view of the chest was acquired. COMPARISON: [facility], CR, XR CHEST 1V, 06/20/2019, 17:35. FINDINGS: Surgical changes and devices: Left chest wall Port-A-Cath tip is in SVC. Lungs and pleura: Increased bronchovascular markings in bilateral hilar region are seen. Small right infrahilar infiltrate cannot be excluded. Left lung is clear. No pleural effusions or pneumothorax. Mediastinum: Mediastinal contours appear normal. Heart size is normal. Bones and chest wall: No suspicious bony lesions. Overlying soft tissues appear unremarkable. IMPRESSION: Increased lung markings in bilateral hilar region with suggestion of right infrahilar infiltrate/atelectasis. No pleural effusion or pneumothorax. Dictated by: Brett Shaw M.D. on 07/18/2019 at 17:17 Approved by: Brett Shaw M.D. on 07/18/2019 at 17:18
[2019-07-18 17:04] LABS: C-Reactive Protein Quant 22.3 mg/dL (<1.0)
[2019-07-18] MEDS: KCL 20 MEQ IN NS 1,000 ML 100 MEQ IV (17:06)
[2019-07-18] MEDS: MAGNESIUM SULFATE 2 GM/50 ML PIGGYBACK IV (17:06)
[2019-07-18 17:09] LABS: Procalcitonin 29.21 ng/mL (<0.5)
[2019-07-18 18:12] LABS: Adenovirus Not Detected (Not Detect); Coronavirus 229E Not Detected (Not Detect); Coronavirus HKU1 Not Detected (Not Detect); Coronavirus NL 63 Not Detected (Not Detect); Coronavirus OC43 Not Detected (Not Detect); Human Metapneumovirus Not Detected (Not Detect); Human Rhinovirus/Enterovirus Not Detected (Not Detect); Influenza A Not Detected (Not Detect); Influenza B Not Detected (Not Detect); Parainfluenza Virus 1 Not Detected (Not Detect); Parainfluenza Virus 2 Not Detected (Not Detect); Parainfluenza Virus 3 Not Detected (Not Detect); Parainfluenza Virus 4 Not Detected (Not Detect)
[2019-07-18 18:13] LABS: Bordetella pertussis Not Detected (Not Detect); Chlamydophila pneumoniae Not Detected (Not Detect); Mycoplasma pneumoniae Not Detected (Not Detect); Respiratory Syncytial Virus Not Detected (Not Detect)
[2019-07-18] MEDS: CEFEPIME 2 GM in SODIUM CHLORIDE 0.9% 100 ML 200 ML IV (18:52)
[2019-07-18] MEDS: AZITHROMYCIN 500 MG in DEXTROSE 5% IN WATER 250 ML IV (19:30)
[2019-07-18] MEDS: VANCOMYCIN 1,000 MG/200 ML PIGGYBACK 200 MG IV (20:30)
[2019-07-18] MEDS: ACETAMINOPHEN 325 MG TABLET 975 MG PO (21:46)
[2019-07-18] MEDS: POTASSIUM CHLORIDE 40 MEQ in SODIUM CHLORIDE 0.9% 500 ML 130 ML IV (21:46)
[2019-07-18 22:32] LABS: Appearance Urine UA CLEAR; Bilirubin Urine UA NEGATIVE (NEGATIVE); Color Urine UA YELLOW; Glucose Urine UA NEGATIVE (Negative); Ketones Urine UA NEGATIVE (NEGATIVE); Leukocyte Esterase Urine UA TRACE (NEGATIVE); Nitrite Urine UA NEGATIVE (Negative); Occult Blood Urine UA TRACE-LYSED (Negative); Protein Urine UA 1+ (Negative); Specific Gravity Urine UA 1.025 (1.000-1.035); Urobilinogen Urine UA 0.2 E.U./dL (0.2)
[2019-07-18] MEDS: ONDANSETRON 4 MG/2 ML INJ IV (22:43)
[2019-07-18 22:57] LABS: RBC Urine 0-1/HPF (0-5/HPF); Squamous Epithelial Cell Urine 0-1 /HPF (0-5/HPF); WBC Urine 5-10/HPF (0-5/HPF); pH Urine UA 5.5 (4.5-8.0)
[2019-07-18 22:58] LABS: Bacteria Urine Few (2-10); Culture Indicated Urine Specimen Cultured
[2019-07-19] VITALS (12 sets, daily range): BP systolic 87–113; BP diastolic 46–63; PULSE 100–115; RESP 16–18; TEMP 36.2–37.7; O2SAT 94–100
--- NOTE | 2019-07-19 03:25 | PC.NURSE ---
Addendum entered by Mildred Reyes R.N. 07/19/19 06:02: Back to floor. Addendum entered by Mildred Reyes R.N. 07/19/19 05:24: Dressing changed to Port site, off floor for CT scan. Addendum entered by Mildred Reyes R.N. 07/19/19 04:06: Critical value: Strep pyogenes, gram positive cocci in all bottles. Notified EXTRUSION PRESS SUPERVISOR of results, no new orders. Original Note: Patient had a loose watery bowel movement but was unfortunately mixed with urine as patient used BSC due to weakness ambulating.
[2019-07-19 03:46] LABS: Enterococcus species Not Detected (Not Detect); Listeria monocytogenes Not Detected (Not Detect); Staphylococcus species Not Detected (Not Detect); Streptococcus species Detected (Not Detect)
[2019-07-19 03:47] LABS: Acinetobacter baumannii Not Detected (Not Detect); E. coli Not Detected (Not Detect); Enterobacteriaceae species Not Detected (Not Detect); Streptococcus agalactiae (Gr B Not Detected (Not Detect); Streptococcus pneumonia Not Detected (Not Detect); Streptococcus pyogenes (Gr A) Detected (Not Detect)
[2019-07-19 03:48] LABS: Candida albicans Not Detected (Not Detect); Candida glabrata Not Detected (Not Detect); Candida krusei Not Detected (Not Detect); Candida parapsilosis Not Detected (Not Detect); Candida tropicalis Not Detected (Not Detect); Enterobacter cloacae complex Not Detected (Not Detect); Haemophilus influenzae Not Detected (Not Detect); Neisseria meningitidis Not Detected (Not Detect); Proteus species Not Detected (Not Detect); Pseudomonas aeruginosa Not Detected (Not Detect); Serratia marcescens Not Detected (Not Detect)
[2019-07-19] MEDS: ONDANSETRON 4 MG/2 ML INJ IV ×3 (04:28→23:59)
--- NOTE | 2019-07-19 04:52 | DI.CT.S_ITS ---
PROCEDURE: CT CHEST W CON INDICATIONS: Strep B pyogenes, question infection of left sided port-a-cat TECHNIQUE: After the administration of intravenous contrast, 5 mm thick sections acquired from the pulmonary apices to the posterior costophrenic angles. 1 mm axial lung, 5 mm thick coronal and sagittal reformats and 7 mm axial MIP were acquired. For radiation dose reduction, the following was used: automated exposure control, adjustment of mA and/or kV according to patient size. COMPARISON: None. FINDINGS: Image quality: Excellent. Lungs and pleura: Mild bibasilar dependent atelectasis. No pleural effusions or pneumothorax. Central and peripheral airways are patent and normal in caliber. Mediastinum: Heart size is normal. No pericardial effusion. No mediastinal or hilar adenopathy by size criteria. Thoracic aorta and central pulmonary arteries are normal in size. Esophagus is normal in caliber. No hiatal hernia. Bones and chest wall: No suspicious bony lesions. No vertebral body compression fractures. No axillary or supraclavicular adenopathy by size criteria. Thyroid gland is normal. There is a left Port-A-Cath in the left anterior chest. No adjacent fluid or gas collections. Mild stranding around the taylor is nonspecific. Abdomen: Hepatic steatosis. There is a 3 cm cyst in spleen. IMPRESSION: 1. Mild stranding around the left Port-A-Cath chest port is nonspecific. No fluid or gas collections adjacent to the port. 2. Bibasilar dependent atelectasis. 3. Hepatic steatosis. 4. A 3 cm cyst in spleen. No significant discrepancy with the shift foreman radiology preliminary report. Dictated by: Magalis Medina M.D. on 07/19/2019 at 7:24 Approved by: Magalis Medina M.D. on 07/19/2019 at 7:28
--- NOTE | 2019-07-19 04:55 | PM.EVENT ---
Event Note Date Patient Seen: 07/19/19 Time Patient Seen: 04:30 Event Note: Informed that all 4 bottles of her blood cultures drawn from port-a-cath and peripheral grew out strep pyogenes. Discussed with Dr. Pinzon who placed the port-a-cath in June of this year. Will have a CT of her upper left chest done to see if there may be an abscess. Patient stated she felt lousy and had generalized pain all over. Not febrile at this time but tachycardic at 101. Port-a-cath site is dry and intact, one small superficial skin bruise at 12:00 position, but no swelling or erythema. Dr. Pinzon will see her later in the morning. Patient is receiving IV cefepime and vancomycin, will not change at this time.
[2019-07-19 05:26] LABS: Campylobacter Not Detected (Not Detect); Clostridium difficile toxin AB Not Detected (Not Detect); Enteroaggregative E.coli Not Detected (Not Detect); Enteropathogenic E.coli Not Detected (Not Detect); Plesiomonsa shigelloides Not Detected (Not Detect); Salmonella Not Detected (Not Detect); Vibrio Not Detected (Not Detect); Vibrio cholerae Not Detected (Not Detect); Yersinia enterocolitica Not Detected (Not Detect)
[2019-07-19 05:27] LABS: Adenovirus F 40/41 Not Detected (Not Detect); Astrovirus Not Detected (Not Detect); Cryptosporidium Not Detected (Not Detect); Cyclospora cayetanensis Not Detected (Not Detect); Entamoeba histolytica Not Detected (Not Detect); Enterotoxigenic E.coli It/st Not Detected (Not Detect); Giardia lamblia Not Detected (Not Detect); Norovirus GI/GII Not Detected (Not Detect); Rotavirus A Not Detected (Not Detect); Sapovirus Not Detected (Not Detect); Shiga-like toxin-prod E.coli Not Detected (Not Detect); Shigella/Enteroinvasive E.coli Not Detected (Not Detect)
[2019-07-19] MEDS: CEFEPIME 2 GM in SODIUM CHLORIDE 0.9% 100 ML 200 ML IV ×2 (06:04→16:43)
[2019-07-19] MEDS: ACETAMINOPHEN 325 MG TABLET 975 MG PO ×2 (06:22→16:55)
[2019-07-19 06:30] LABS: Add Manual Diff / Slide Review NO; Basophils Absolute Auto 0 /uL (0-100); Basophils Percent Auto 0.2 % (0-2); Eosinophils Absolute Auto 0 /uL (0-450); Hematocrit 32.1 % (36-46); Lymphocytes Absolute Auto 600 /uL (1100-4500); Lymphocytes Percent Auto 2.7 % (25-40); Mean Corpuscular HGB Conc 34.3 % (30-36); Mean Corpuscular Hemoglobin 28.9 PG (26-34); Mean Corpuscular Volume 84.2 fL (80-100); Monocytes Absolute Auto 500 /uL (0-900); Monocytes Percent Auto 2.1 % (3-14); Neutrophils Absolute Auto 20400 /uL (1500-7000); Platelet Count 67 X10^3/uL (150-400); Red Blood Cell Count 3.81 X10^6/uL (4.0-5.2); Red Cell Distribution Width 13.4 % (11.6-14.8); White Blood Cell Count 21.5 X10^3/uL (4.5-11.0)
[2019-07-19 06:38] LABS: Alanine Aminotransferase 43 IU/L (<35); Albumin 3.1 g/dL (3.5-5.0); Albumin Globulin Ratio 1.1 (1.0-2.8); Alkaline Phosphatase 72 U/L (38-126); Aspartate Aminotransferase 40 IU/L (14-36); BUN Creatinine Ratio 21.4 (6-22); Bilirubin Total 1.3 mg/dL (0.2-1.3); Blood Urea Nitrogen 18 mg/dL (7-17); Calcium 7.5 mg/dL (8.4-10.2); Carbon Dioxide 20 mmol/L (22-32); Chloride 109 mmol/L (98-107); Estimated Glomerular Filt Rate > 60.0 mL/min (>60); Globulin 2.8 g/dL (1.7-4.1); Glucose 114 mg/dL (70-100); HEMOLYSIS < 15 (0-50); Magnesium 2.3 mg/dL (1.6-2.3); Potassium 3.3 mmol/L (3.4-5.1); Sodium 137 mmol/L (137-145); Total Protein 5.9 g/dL (6.3-8.2)
[2019-07-19] MEDS: VANCOMYCIN 1,000 MG/200 ML PIGGYBACK 200 MG IV ×2 (06:40→20:18)
[2019-07-19 06:57] LABS: Procalcitonin 19.76 ng/mL (<0.5)
--- NOTE | 2019-07-19 07:38 | P.PN_ITS ---
Subjective Subjective Date Patient Seen: 07/19/19 Interval history: Rebekah Mcdaniel is a 34-year-old female with newly diagnosed ER+, WV+, HER2+, node positive invasive breast cancer who was sent over from infusion clinic due to fever, nausea vomiting and diarrhea of 1 day duration. The patient is resting comfortably in bedside chair. She reports she feels much better than yesterday. She is much more awake and alert. She reports her fevers, nausea and vomiting have improved. She continues to have diarrhea and requests something to help with this. Plan to order Imodium as needed since GI stool panel was negative. Per patient's past patient had severe sore throat for 1 week that was untreated and thought to be related to chemotherapy. She has a poor appetite. She is voiding and eliminating without difficulty. She is up ambulating with minimal assistance. Exam Vital Signs (past 8 hours): - 07/19/19 01:29 07/19/19 03:00 07/19/19 05:00 Temperature 97.2 F L Pulse Rate 101 H Respiratory Rate 18 Blood Pressure 101/63 Pulse Oximetry 94 100 100 Oxygen Delivery Method Room Air Oxygen Flow Rate 0 Narrative Exam Narrative: General: Young female sitting in bedside chair and in no acute distress, well- developed, well-nourished, appropriately interactive. HEENT: Normocephalic, atraumatic. External ears without defect. Pupils equal, round, and reactive to light. Anicteric sclerae, moist conjunctivae, and no lid lag. Oropharynx free of erythema and cobble stoning with moist mucosa. Neck: Supple with full range of motion. No lymphadenopathy or thyromegaly. Cardiovascular: Regular rhythm, mild tachycardia, without murmurs, rubs, or gallops appreciated. Left chest with dressing in place C/D/I. Pulmonary: Clear to auscultation bilaterally without crackles, wheezes, or rhonchi. Normal respiratory effort with no use of accessory muscles. Abdomen: Soft, bowel sounds present, nontender, nondistended. No hepatosplenomegaly or masses appreciated. Extremities: No clubbing, cyanosis, or edema. Skin: Normal temperature, turgor, and texture; no rash, ulcers, or subcutaneous nodules appreciated. Neurological: Cranial nerves grossly intact. Psychiatric: Normal mood and affect. Alert and oriented to person, place, and time. Objective Labs Result Diagrams: 07/19/19 06:15 07/19/19 06:15 Labs: Laboratory Results - last 24 hr 07/18/19 07/18/19 07/18/19 15:25 15:25 16:30 WBC RBC Hgb Hct MCV MCH MCHC RDW Plt Count Neut % (Auto) Lymph % (Auto) Yates % (Auto) Eos % (Auto) Baso % (Auto) Neut # (Auto) Lymph # (Auto) Yates # (Auto) Eos # (Auto) Baso # (Auto) Sodium Potassium Chloride Carbon Dioxide BUN Creatinine Estimated GFR BUN/Creatinine Ratio Glucose Lactate Calcium Magnesium Total Bilirubin AST ALT Alkaline Phosphatase C-Reactive Protein Total Protein Albumin Globulin Albumin/Globulin Ratio Procalcitonin 29.21 H Urine Color Urine Appearance Urine pH Ur Specific Watkins Urine Protein Urine Glucose (UA) Urine Ketones Urine Occult Blood Urine Nitrate Urine Bilirubin Urine Urobilinogen Ur Leukocyte Esterase Urine RBC Urine WBC Ur Squamous Epith Cells Urine Bacteria Ur Culture Indicated? Stl C. cayetanensis PCR Stool Rotavirus (PCR) Stool Adenovirus (PCR) Stool Astrovirus (PCR) Stool Cryptosporidium PCR Stl E.coli Shiga Tox PCR St Sh/Enteroin Ecoli PCR Stool E coli O157 PCR Stl Enterotoxigenic E PCR Stool EPEC (PCR) Stl E. histolytica PCR Stool Giardia Lamblia PCR Stool Sapovirus (PCR) Stl P. shigelloides PCR St Y.enterocolitica PCR Stool Vibrio (PCR) Stl Vibrio cholerae PCR Stl Enteroaggr Ecoli PCR Stl Norovirus GI/GII PCR A. baumannii (PCR) Chlamy pneumoniae PCR Not detected Adenovirus (PCR) Not detected B.parapertussis DNA PCR Not detected Campylobacter (PCR) Yudy albicans (PCR) C. glabrata (PCR) C. krusei (PCR) C. parapsilosis (PCR) C. tropicalis (PCR) C. difficile Tox (PCR) Coronavirus OC43 (PCR) Not detected Coronavirus HKU1 (PCR) Not detected Coronavirus 229E (PCR) Not detected Coronavirus NL63 (PCR) Not detected Enterobacteriac sp PCR E. cloacae complex PCR Enterococcus sp PCR E. coli (PCR) H. influenzae (PCR) Human Metapneumovir PCR Not detected Influenza A (RT-PCR) Flu a negative Influenza Type A (PCR) Not detected Influenza B (RT-PCR) Flu b negative Influenza Type B (PCR) Not detected Klebsiella oxytoca PCR Klebsiella pneumoniae List. monocytogenes PCR M. pneumoniae (PCR) Not detected N. meningitidis (PCR) Parainfluenza 1 (PCR) Not detected Parainfluenza 2 (PCR) Not detected Parainfluenza 3 (PCR) Not detected Parainfluenza 4 (PCR) Not detected Proteus species (PCR) RSV (PCR) Not detected Entero/Rhino (PCR) Not detected Salmonella (PCR) Serratia marcescens PCR Staphylococcus sp PCR Staph aureus (PCR) mecA-Methicil Res Gene Streptococcus sp PCR Group A Strep (PCR) Strep agalactiae (PCR) Strep pneumoniae (PCR) P. aeruginosa (PCR) Sienna/B-Vanco Res Genes KPC-Carbap Res Gene PCR 07/18/19 07/18/19 07/18/19 16:30 16:30 16:30 WBC RBC Hgb Hct MCV MCH MCHC RDW Plt Count Neut % (Auto) Lymph % (Auto) Yates % (Auto) Eos % (Auto) Baso % (Auto) Neut # (Auto) Lymph # (Auto) Yates # (Auto) Eos # (Auto) Baso # (Auto) Sodium Potassium Chloride Carbon Dioxide BUN Creatinine Estimated GFR BUN/Creatinine Ratio Glucose Lactate 1.9 Calcium Magnesium Total Bilirubin AST ALT Alkaline Phosphatase C-Reactive Protein 22.3 H Total Protein Albumin Globulin Albumin/Globulin Ratio Procalcitonin Urine Color Urine Appearance Urine pH Ur Specific Watkins Urine Protein Urine Glucose (UA) Urine Ketones Urine Occult Blood Urine Nitrate Urine Bilirubin Urine Urobilinogen Ur Leukocyte Esterase Urine RBC Urine WBC Ur Squamous Epith Cells Urine Bacteria Ur Culture Indicated? Stl C. cayetanensis PCR Stool Rotavirus (PCR) Stool Adenovirus (PCR) Stool Astrovirus (PCR) Stool Cryptosporidium PCR Stl E.coli Shiga Tox PCR St Sh/Enteroin Ecoli PCR Stool E coli O157 PCR Stl Enterotoxigenic E PCR Stool EPEC (PCR) Stl E. histolytica PCR Stool Giardia Lamblia PCR Stool Sapovirus (PCR) Stl P. shigelloides PCR St Y.enterocolitica PCR Stool Vibrio (PCR) Stl Vibrio cholerae PCR Stl Enteroaggr Ecoli PCR Stl Norovirus GI/GII PCR A. baumannii (PCR) Not detected Chlamy pneumoniae PCR Adenovirus (PCR) B.parapertussis DNA PCR Campylobacter (PCR) Yudy albicans (PCR) Not detected C. glabrata (PCR) Not detected C. krusei (PCR) Not detected C. parapsilosis (PCR) Not detected C. tropicalis (PCR) Not detected C. difficile Tox (PCR) Coronavirus OC43 (PCR) Coronavirus HKU1 (PCR) Coronavirus 229E (PCR) Coronavirus NL63 (PCR) Enterobacteriac sp PCR Not detected E. cloacae complex PCR Not detected Enterococcus sp PCR Not detected E. coli (PCR) Not detected H. influenzae (PCR) Not detected Human Metapneumovir PCR Influenza A (RT-PCR) Influenza Type A (PCR) Influenza B (RT-PCR) Influenza Type B (PCR) Klebsiella oxytoca PCR Not detected Klebsiella pneumoniae Not detected List. monocytogenes PCR Not detected M. pneumoniae (PCR) N. meningitidis (PCR) Not detected Parainfluenza 1 (PCR) Parainfluenza 2 (PCR) Parainfluenza 3 (PCR) Parainfluenza 4 (PCR) Proteus species (PCR) Not detected RSV (PCR) Entero/Rhino (PCR) Salmonella (PCR) Serratia marcescens PCR Not detected Staphylococcus sp PCR Not detected Staph aureus (PCR) Not detected mecA-Methicil Res Gene Not Reportable Streptococcus sp PCR Detected H Group A Strep (PCR) Detected H Strep agalactiae (PCR) Not detected Strep pneumoniae (PCR) Not detected P. aeruginosa (PCR) Not detected Sienna/B-Vanco Res Genes Not Reportable KPC-Carbap Res Gene PCR Not Reportable 07/18/19 07/19/19 07/19/19 22:05 03:50 06:15 WBC 21.5 H RBC 3.81 L Hgb 11.0 L Hct 32.1 L MCV 84.2 MCH 28.9 MCHC 34.3 RDW 13.4 Plt Count 67 L Neut % (Auto) 95.0 H Lymph % (Auto) 2.7 L Yates % (Auto) 2.1 L Eos % (Auto) 0.0 L Baso % (Auto) 0.2 Neut # (Auto) 70695 H Lymph # (Auto) 600 L Yates # (Auto) 500 Eos # (Auto) 0 Baso # (Auto) 0 Sodium Potassium Chloride Carbon Dioxide BUN Creatinine Estimated GFR BUN/Creatinine Ratio Glucose Lactate Calcium Magnesium Total Bilirubin AST ALT Alkaline Phosphatase C-Reactive Protein Total Protein Albumin Globulin Albumin/Globulin Ratio Procalcitonin Urine Color Yellow Urine Appearance Clear Urine pH 5.5 Ur Specific Watkins 1.025 Urine Protein 1+ H Urine Glucose (UA) Negative Urine Ketones Negative Urine Occult Blood Trace-lysed Urine Nitrate Negative Urine Bilirubin Negative Urine Urobilinogen 0.2 Ur Leukocyte Esterase Trace H Urine RBC 0-1/hpf Urine WBC 5-10/hpf H Ur Squamous Epith Cells 0-1 /hpf Urine Bacteria Few (2-10) H Ur Culture Indicated? Specimen cultured Stl C. cayetanensis PCR Not detected Stool Rotavirus (PCR) Not detected Stool Adenovirus (PCR) Not detected Stool Astrovirus (PCR) Not detected Stool Cryptosporidium PCR Not detected Stl E.coli Shiga Tox PCR Not detected St Sh/Enteroin Ecoli PCR Not detected Stool E coli O157 PCR Not Reportable Stl Enterotoxigenic E PCR Not detected Stool EPEC (PCR) Not detected Stl E. histolytica PCR Not detected Stool Giardia Lamblia PCR Not detected Stool Sapovirus (PCR) Not detected Stl P. shigelloides PCR Not detected St Y.enterocolitica PCR Not detected Stool Vibrio (PCR) Not detected Stl Vibrio cholerae PCR Not detected Stl Enteroaggr Ecoli PCR Not detected Stl Norovirus GI/GII PCR Not detected A. baumannii (PCR) Chlamy pneumoniae PCR Adenovirus (PCR) B.parapertussis DNA PCR Campylobacter (PCR) Not detected Yudy albicans (PCR) C. glabrata (PCR) C. krusei (PCR) C. parapsilosis (PCR) C. tropicalis (PCR) C. difficile Tox (PCR) Not detected Coronavirus OC43 (PCR) Coronavirus HKU1 (PCR) Coronavirus 229E (PCR) Coronavirus NL63 (PCR) Enterobacteriac sp PCR E. cloacae complex PCR Enterococcus sp PCR E. coli (PCR) H. influenzae (PCR) Human Metapneumovir PCR Influenza A (RT-PCR) Influenza Type A (PCR) Influenza B (RT-PCR) Influenza Type B (PCR) Klebsiella oxytoca PCR Klebsiella pneumoniae List. monocytogenes PCR M. pneumoniae (PCR) N. meningitidis (PCR) Parainfluenza 1 (PCR) Parainfluenza 2 (PCR) Parainfluenza 3 (PCR) Parainfluenza 4 (PCR) Proteus species (PCR) RSV (PCR) Entero/Rhino (PCR) Salmonella (PCR) Not detected Serratia marcescens PCR Staphylococcus sp PCR Staph aureus (PCR) mecA-Methicil Res Gene Streptococcus sp PCR Group A Strep (PCR) Strep agalactiae (PCR) Strep pneumoniae (PCR) P. aeruginosa (PCR) Sienna/B-Vanco Res Genes KPC-Carbap Res Gene PCR 07/19/19 07/19/19 06:15 06:15 WBC RBC Hgb Hct MCV MCH MCHC RDW Plt Count Neut % (Auto) Lymph % (Auto) Yates % (Auto) Eos % (Auto) Baso % (Auto) Neut # (Auto) Lymph # (Auto) Yates # (Auto) Eos # (Auto) Baso # (Auto) Sodium 137 Potassium 3.3 L Chloride 109 H Carbon Dioxide 20 L BUN 18 H Creatinine 0.84 Estimated GFR > 60.0 BUN/Creatinine Ratio 21.4 Glucose 114 H Lactate Calcium 7.5 L Magnesium 2.3 Total Bilirubin 1.3 AST 40 H ALT 43 H Alkaline Phosphatase 72 C-Reactive Protein Total Protein 5.9 L Albumin 3.1 L Globulin 2.8 Albumin/Globulin Ratio 1.1 Procalcitonin 19.76 H Urine Color Urine Appearance Urine pH Ur Specific Watkins Urine Protein Urine Glucose (UA) Urine Ketones Urine Occult Blood Urine Nitrate Urine Bilirubin Urine Urobilinogen Ur Leukocyte Esterase Urine RBC Urine WBC Ur Squamous Epith Cells Urine Bacteria Ur Culture Indicated? Stl C. cayetanensis PCR Stool Rotavirus (PCR) Stool Adenovirus (PCR) Stool Astrovirus (PCR) Stool Cryptosporidium PCR Stl E.coli Shiga Tox PCR St Sh/Enteroin Ecoli PCR Stool E coli O157 PCR Stl Enterotoxigenic E PCR Stool EPEC (PCR) Stl E. histolytica PCR Stool Giardia Lamblia PCR Stool Sapovirus (PCR) Stl P. shigelloides PCR St Y.enterocolitica PCR Stool Vibrio (PCR) Stl Vibrio cholerae PCR Stl Enteroaggr Ecoli PCR Stl Norovirus GI/GII PCR A. baumannii (PCR) Chlamy pneumoniae PCR Adenovirus (PCR) B.parapertussis DNA PCR Campylobacter (PCR) Yudy albicans (PCR) C. glabrata (PCR) C. krusei (PCR) C. parapsilosis (PCR) C. tropicalis (PCR) C. difficile Tox (PCR) Coronavirus OC43 (PCR) Coronavirus HKU1 (PCR) Coronavirus 229E (PCR) Coronavirus NL63 (PCR) Enterobacteriac sp PCR E. cloacae complex PCR Enterococcus sp PCR E. coli (PCR) H. influenzae (PCR) Human Metapneumovir PCR Influenza A (RT-PCR) Influenza Type A (PCR) Influenza B (RT-PCR) Influenza Type B (PCR) Klebsiella oxytoca PCR Klebsiella pneumoniae List. monocytogenes PCR M. pneumoniae (PCR) N. meningitidis (PCR) Parainfluenza 1 (PCR) Parainfluenza 2 (PCR) Parainfluenza 3 (PCR) Parainfluenza 4 (PCR) Proteus species (PCR) RSV (PCR) Entero/Rhino (PCR) Salmonella (PCR) Serratia marcescens PCR Staphylococcus sp PCR Staph aureus (PCR) mecA-Methicil Res Gene Streptococcus sp PCR Group A Strep (PCR) Strep agalactiae (PCR) Strep pneumoniae (PCR) P. aeruginosa (PCR) Sienna/B-Vanco Res Genes KPC-Carbap Res Gene PCR Assessment & Plan Assessment & Plan narrative: Rebekah Mcdaniel is a 34-year-old female with newly diagnosed invasive breast CA, status post neoadjuvant chemo on 07/05/2019 and Neulasta on 07/06/2019 who presented with 1 day onset of fever, myalgias, headache, nausea, vomiting and diarrhea. 1. Severe sepsis, present on admission. Resolving. -Patient presented ill with high fever, myalgias, headache, GI symptoms, hypotension, tachycardia, and leukocytosis (possibly some component of rebound leukocytosis from Neulasta given on 07/06/2019). Sofa score 2 for CHASE and low platelet. -Early goal-directed therapy med including IV fluid resuscitation and broad- spectrum antibiotics. 2. Strep pyogenes bacteremia, present on admission. Active. -Unclear source of infection but suspicious of left Port-A-Cath infection versus untreated strep throat. -Patient presented with fever, myalgias, headache, nausea, vomiting, and diarrhea. -Chest x-ray demonstrated increased lung markings in bilateral hilar region with suggestion of right infrahilar infiltrate/atelectasis. No pleural effusion or pneumothorax. -CT chest without contrast demonstrated bibasilar atelectasis without any evidence of pneumonia. 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 -Blood cultures positive for 4:4 bottles for strep pyogenes. -Initial WBC 28.4 and procalcitonin 29.21. Continue to trend WBC and procalcitonin daily. -Respiratory viral PCR negative. COVID 19 sent and pending. COVID-19 can present with fever and GI only symptoms in about 10% of cases, although patient does note subjective dyspnea without cough. -GI stool PCR negative. -Continue supportive treatment with antipyretics, antiemetics and IV fluids. Slowly advance diet as tolerated. -Continue vancomycin with dosing per pharmacist and cefepime 2 g IV every 12 hours for bacteremia. Continue azithromycin 500 mg IV x3 doses for possible atypical pneumonia coverage. -Consulted general surgery, Dr. Pinzon, who removed left Port-A-Cath. 3. Acute kidney injury, present on admission. Resolved. -Initial creatinine 1.3. Baseline creatinine 0.57. -Likely prerenal secondary sepsis and volume depletion. -Received 2 L NS administered at Oncology Clinic. Continue normal saline with KCl 20 mEq at 100 cc/hour. -Avoid nephrotoxic agents. -Continue to monitor urine output and renal function closely. 4. Hypomagnesemia, present on admission. Resolved. -Secondary to GI losses. -Initial magnesium level 1.2. Received magnesium sulfate 2 g IV x1. Magnesium level now 2.3. -Continue to monitor and replete magnesium as necessary. 5. Hypokalemia, present on admission. Active. -Secondary to GI losses. -Initial potassium level 3.2. Received potassium chloride 40 mEq IV x1. P otassium level now 3.3. Ordered additional potassium chloride 60 mEq IV x1. -Continue to monitor and replete potassium as necessary. 6. Right invasive breast cancer, present on admission. Active. -Followed by Oncology, Dr. Murdock. -Status post neoadjuvant chemo 07/05/2019, Neulasta 07/06/2019 Code status: Full code DVT prophylaxis: Lovenox, SCDs Disposition: Patient likely to remain hospitalized for the next 1-2 days as her infection is treated and await culture identification and sensitivities. Quality VTE Deep Vein Thrombosis/Pulmonary Embolism Present on Admission: No
[2019-07-19] MEDS: ENOXAPARIN 40 MG/0.4 ML SYRINGE SUBCUT (08:07)
[2019-07-19] MEDS: POTASSIUM CHLORIDE 60 MEQ in SODIUM CHLORIDE 0.9% 500 ML 88.333 ML IV (08:13)
--- NOTE | 2019-07-19 09:19 | P.CONS_ITS ---
History of Present Illness Consult details Date Patient Seen: 07/19/19 Time Patient Seen: 12:34 Chief complaint: Breast cancer, dehydration,febrile Narrative: This is a 34-year-old woman with locally advanced right breast cancer who is on neoadjuvant chemotherapy admitted hospital with bacteremia and sepsis. Micro demonstrates strep pyogenes from the blood cultures which were drawn through the port a cath. She had no issues with the port since it was placed Fe bruary 202 no wound drainage cellulitis and it was used to deliver her 1st round of neoadjuvant therapy July 04. According to patient's she had a sore throat for the last week following chemotherapy. She presented with rigors fever generalized weakness and nonbloody diarrhea. On admission her white blood cell count is 29 procalcitonin 19 UA negative stool studies negative. Meds Home Medications and Allergies Home Medications Medication Instructions Recorded Confirmed Type acetaminophen [Tylenol] 650 mg PO QID PRN #60 cap 06/20/19 07/05/19 Rx dexamethasone 8 mg PO BID 07/05/19 07/05/19 History ondansetron 4 mg PO Q6H #60 tab 07/05/19 Rx Allergies Allergy/AdvReac Type Severity Reaction Status Date / Time shrimp Allergy Severe SOA Verified 06/20/19 13:08 iodine AdvReac PT STATES Verified 06/20/19 13:08 strawberry AdvReac Hives Verified 06/26/19 10:32 Review of Systems Review of Systems Narrative: A 10 point review of systems is negative except as noted in the HPI Exam Vital Signs (past 8 hours): - 07/19/19 01:29 07/19/19 03:00 07/19/19 05:00 Temperature 97.2 F L Pulse Rate 101 H Respiratory Rate 18 Blood Pressure 101/63 Pulse Oximetry 94 100 100 07/19/19 08:05 Temperature 98.8 F Pulse Rate 100 H Respiratory Rate 16 Blood Pressure 87/60 L Pulse Oximetry 97 Oxygen Delivery Method Room Air Oxygen Flow Rate 0 Narrative Exam Narrative: General adult female alert oriented no acute distress HEENT-normocephalic no pharyngeal erythema, neck is supple Chest port incision clean dry intact no erythema no drainage no pain with palpation. Abdomen soft nontender nondistended Extremities warm well perfused Objective Labs Result Diagrams: 07/19/19 06:15 07/19/19 06:15 Labs: Laboratory Results - last 24 hr 07/18/19 07/18/19 07/18/19 15:25 15:25 16:30 WBC RBC Hgb Hct MCV MCH MCHC RDW Plt Count Neut % (Auto) Lymph % (Auto) Crowley % (Auto) Eos % (Auto) Baso % (Auto) Neut # (Auto) Lymph # (Auto) Crowley # (Auto) Eos # (Auto) Baso # (Auto) Sodium Potassium Chloride Carbon Dioxide BUN Creatinine Estimated GFR BUN/Creatinine Ratio Glucose Lactate Calcium Magnesium Total Bilirubin AST ALT Alkaline Phosphatase C-Reactive Protein Total Protein Albumin Globulin Albumin/Globulin Ratio Procalcitonin 29.21 H Urine Color Urine Appearance Urine pH Ur Specific [place] Urine Protein Urine Glucose (UA) Urine Ketones Urine Occult Blood Urine Nitrate Urine Bilirubin Urine Urobilinogen Ur Leukocyte Esterase Urine RBC Urine WBC Ur Squamous Epith Cells Urine Bacteria Ur Culture Indicated? Stl C. cayetanensis PCR Stool Rotavirus (PCR) Stool Adenovirus (PCR) Stool Astrovirus (PCR) Stool Cryptosporidium PCR Stl E.coli Shiga Tox PCR St Sh/Enteroin Ecoli PCR Stool E coli O157 PCR Stl Enterotoxigenic E PCR Stool EPEC (PCR) Stl E. histolytica PCR Stool Giardia Lamblia PCR Stool Sapovirus (PCR) Stl P. shigelloides PCR St Y.enterocolitica PCR Stool Vibrio (PCR) Stl Vibrio cholerae PCR Stl Enteroaggr Ecoli PCR Stl Norovirus GI/GII PCR A. baumannii (PCR) Chlamy pneumoniae PCR Not detected Adenovirus (PCR) Not detected B.parapertussis DNA PCR Not detected Campylobacter (PCR) Yudy albicans (PCR) C. glabrata (PCR) C. krusei (PCR) C. parapsilosis (PCR) C. tropicalis (PCR) C. difficile Tox (PCR) Coronavirus OC43 (PCR) Not detected Coronavirus HKU1 (PCR) Not detected Coronavirus 229E (PCR) Not detected Coronavirus NL63 (PCR) Not detected Enterobacteriac sp PCR E. cloacae complex PCR Enterococcus sp PCR E. coli (PCR) H. influenzae (PCR) Human Metapneumovir PCR Not detected Influenza A (RT-PCR) Flu a negative Influenza Type A (PCR) Not detected Influenza B (RT-PCR) Flu b negative Influenza Type B (PCR) Not detected Klebsiella oxytoca PCR Klebsiella pneumoniae List. monocytogenes PCR M. pneumoniae (PCR) Not detected N. meningitidis (PCR) Parainfluenza 1 (PCR) Not detected Parainfluenza 2 (PCR) Not detected Parainfluenza 3 (PCR) Not detected Parainfluenza 4 (PCR) Not detected Proteus species (PCR) RSV (PCR) Not detected Entero/Rhino (PCR) Not detected Salmonella (PCR) Serratia marcescens PCR Staphylococcus sp PCR Staph aureus (PCR) mecA-Methicil Res Gene Streptococcus sp PCR Group A Strep (PCR) Strep agalactiae (PCR) Strep pneumoniae (PCR) P. aeruginosa (PCR) Sienna/B-Vanco Res Genes KPC-Carbap Res Gene PCR 07/18/19 07/18/19 07/18/19 16:30 16:30 16:30 WBC RBC Hgb Hct MCV MCH MCHC RDW Plt Count Neut % (Auto) Lymph % (Auto) Crowley % (Auto) Eos % (Auto) Baso % (Auto) Neut # (Auto) Lymph # (Auto) Crowley # (Auto) Eos # (Auto) Baso # (Auto) Sodium Potassium Chloride Carbon Dioxide BUN Creatinine Estimated GFR BUN/Creatinine Ratio Glucose Lactate 1.9 Calcium Magnesium Total Bilirubin AST ALT Alkaline Phosphatase C-Reactive Protein 22.3 H Total Protein Albumin Globulin Albumin/Globulin Ratio Procalcitonin Urine Color Urine Appearance Urine pH Ur Specific [place] Urine Protein Urine Glucose (UA) Urine Ketones Urine Occult Blood Urine Nitrate Urine Bilirubin Urine Urobilinogen Ur Leukocyte Esterase Urine RBC Urine WBC Ur Squamous Epith Cells Urine Bacteria Ur Culture Indicated? Stl C. cayetanensis PCR Stool Rotavirus (PCR) Stool Adenovirus (PCR) Stool Astrovirus (PCR) Stool Cryptosporidium PCR Stl E.coli Shiga Tox PCR St Sh/Enteroin Ecoli PCR Stool E coli O157 PCR Stl Enterotoxigenic E PCR Stool EPEC (PCR) Stl E. histolytica PCR Stool Giardia Lamblia PCR Stool Sapovirus (PCR) Stl P. shigelloides PCR St Y.enterocolitica PCR Stool Vibrio (PCR) Stl Vibrio cholerae PCR Stl Enteroaggr Ecoli PCR Stl Norovirus GI/GII PCR A. baumannii (PCR) Not detected Chlamy pneumoniae PCR Adenovirus (PCR) B.parapertussis DNA PCR Campylobacter (PCR) Yudy albicans (PCR) Not detected C. glabrata (PCR) Not detected C. krusei (PCR) Not detected C. parapsilosis (PCR) Not detected C. tropicalis (PCR) Not detected C. difficile Tox (PCR) Coronavirus OC43 (PCR) Coronavirus HKU1 (PCR) Coronavirus 229E (PCR) Coronavirus NL63 (PCR) Enterobacteriac sp PCR Not detected E. cloacae complex PCR Not detected Enterococcus sp PCR Not detected E. coli (PCR) Not detected H. influenzae (PCR) Not detected Human Metapneumovir PCR Influenza A (RT-PCR) Influenza Type A (PCR) Influenza B (RT-PCR) Influenza Type B (PCR) Klebsiella oxytoca PCR Not detected Klebsiella pneumoniae Not detected List. monocytogenes PCR Not detected M. pneumoniae (PCR) N. meningitidis (PCR) Not detected Parainfluenza 1 (PCR) Parainfluenza 2 (PCR) Parainfluenza 3 (PCR) Parainfluenza 4 (PCR) Proteus species (PCR) Not detected RSV (PCR) Entero/Rhino (PCR) Salmonella (PCR) Serratia marcescens PCR Not detected Staphylococcus sp PCR Not detected Staph aureus (PCR) Not detected mecA-Methicil Res Gene Not Reportable Streptococcus sp PCR Detected H Group A Strep (PCR) Detected H Strep agalactiae (PCR) Not detected Strep pneumoniae (PCR) Not detected P. aeruginosa (PCR) Not detected Sienna/B-Vanco Res Genes Not Reportable KPC-Carbap Res Gene PCR Not Reportable 07/18/19 07/19/19 07/19/19 22:05 03:50 06:15 WBC 21.5 H RBC 3.81 L Hgb 11.0 L Hct 32.1 L MCV 84.2 MCH 28.9 MCHC 34.3 RDW 13.4 Plt Count 67 L Neut % (Auto) 95.0 H Lymph % (Auto) 2.7 L Crowley % (Auto) 2.1 L Eos % (Auto) 0.0 L Baso % (Auto) 0.2 Neut # (Auto) 11748 H Lymph # (Auto) 600 L Crowley # (Auto) 500 Eos # (Auto) 0 Baso # (Auto) 0 Sodium Potassium Chloride Carbon Dioxide BUN Creatinine Estimated GFR BUN/Creatinine Ratio Glucose Lactate Calcium Magnesium Total Bilirubin AST ALT Alkaline Phosphatase C-Reactive Protein Total Protein Albumin Globulin Albumin/Globulin Ratio Procalcitonin Urine Color Yellow Urine Appearance Clear Urine pH 5.5 Ur Specific [place] 1.025 Urine Protein 1+ H Urine Glucose (UA) Negative Urine Ketones Negative Urine Occult Blood Trace-lysed Urine Nitrate Negative Urine Bilirubin Negative Urine Urobilinogen 0.2 Ur Leukocyte Esterase Trace H Urine RBC 0-1/hpf Urine WBC 5-10/hpf H Ur Squamous Epith Cells 0-1 /hpf Urine Bacteria Few (2-10) H Ur Culture Indicated? Specimen cultured Stl C. cayetanensis PCR Not detected Stool Rotavirus (PCR) Not detected Stool Adenovirus (PCR) Not detected Stool Astrovirus (PCR) Not detected Stool Cryptosporidium PCR Not detected Stl E.coli Shiga Tox PCR Not detected St Sh/Enteroin Ecoli PCR Not detected Stool E coli O157 PCR Not Reportable Stl Enterotoxigenic E PCR Not detected Stool EPEC (PCR) Not detected Stl E. histolytica PCR Not detected Stool Giardia Lamblia PCR Not detected Stool Sapovirus (PCR) Not detected Stl P. shigelloides PCR Not detected St Y.enterocolitica PCR Not detected Stool Vibrio (PCR) Not detected Stl Vibrio cholerae PCR Not detected Stl Enteroaggr Ecoli PCR Not detected Stl Norovirus GI/GII PCR Not detected A. baumannii (PCR) Chlamy pneumoniae PCR Adenovirus (PCR) B.parapertussis DNA PCR Campylobacter (PCR) Not detected Yudy albicans (PCR) C. glabrata (PCR) C. krusei (PCR) C. parapsilosis (PCR) C. tropicalis (PCR) C. difficile Tox (PCR) Not detected Coronavirus OC43 (PCR) Coronavirus HKU1 (PCR) Coronavirus 229E (PCR) Coronavirus NL63 (PCR) Enterobacteriac sp PCR E. cloacae complex PCR Enterococcus sp PCR E. coli (PCR) H. influenzae (PCR) Human Metapneumovir PCR Influenza A (RT-PCR) Influenza Type A (PCR) Influenza B (RT-PCR) Influenza Type B (PCR) Klebsiella oxytoca PCR Klebsiella pneumoniae List. monocytogenes PCR M. pneumoniae (PCR) N. meningitidis (PCR) Parainfluenza 1 (PCR) Parainfluenza 2 (PCR) Parainfluenza 3 (PCR) Parainfluenza 4 (PCR) Proteus species (PCR) RSV (PCR) Entero/Rhino (PCR) Salmonella (PCR) Not detected Serratia marcescens PCR Staphylococcus sp PCR Staph aureus (PCR) mecA-Methicil Res Gene Streptococcus sp PCR Group A Strep (PCR) Strep agalactiae (PCR) Strep pneumoniae (PCR) P. aeruginosa (PCR) Sienna/B-Vanco Res Genes KPC-Carbap Res Gene PCR 07/19/19 07/19/19 06:15 06:15 WBC RBC Hgb Hct MCV MCH MCHC RDW Plt Count Neut % (Auto) Lymph % (Auto) Crowley % (Auto) Eos % (Auto) Baso % (Auto) Neut # (Auto) Lymph # (Auto) Crowley # (Auto) Eos # (Auto) Baso # (Auto) Sodium 137 Potassium 3.3 L Chloride 109 H Carbon Dioxide 20 L BUN 18 H Creatinine 0.84 Estimated GFR > 60.0 BUN/Creatinine Ratio 21.4 Glucose 114 H Lactate Calcium 7.5 L Magnesium 2.3 Total Bilirubin 1.3 AST 40 H ALT 43 H Alkaline Phosphatase 72 C-Reactive Protein Total Protein 5.9 L Albumin 3.1 L Globulin 2.8 Albumin/Globulin Ratio 1.1 Procalcitonin 19.76 H Urine Color Urine Appearance Urine pH Ur Specific [place] Urine Protein Urine Glucose (UA) Urine Ketones Urine Occult Blood Urine Nitrate Urine Bilirubin Urine Urobilinogen Ur Leukocyte Esterase Urine RBC Urine WBC Ur Squamous Epith Cells Urine Bacteria Ur Culture Indicated? Stl C. cayetanensis PCR Stool Rotavirus (PCR) Stool Adenovirus (PCR) Stool Astrovirus (PCR) Stool Cryptosporidium PCR Stl E.coli Shiga Tox PCR St Sh/Enteroin Ecoli PCR Stool E coli O157 PCR Stl Enterotoxigenic E PCR Stool EPEC (PCR) Stl E. histolytica PCR Stool Giardia Lamblia PCR Stool Sapovirus (PCR) Stl P. shigelloides PCR St Y.enterocolitica PCR Stool Vibrio (PCR) Stl Vibrio cholerae PCR Stl Enteroaggr Ecoli PCR Stl Norovirus GI/GII PCR A. baumannii (PCR) Chlamy pneumoniae PCR Adenovirus (PCR) B.parapertussis DNA PCR Campylobacter (PCR) Yudy albicans (PCR) C. glabrata (PCR) C. krusei (PCR) C. parapsilosis (PCR) C. tropicalis (PCR) C. difficile Tox (PCR) Coronavirus OC43 (PCR) Coronavirus HKU1 (PCR) Coronavirus 229E (PCR) Coronavirus NL63 (PCR) Enterobacteriac sp PCR E. cloacae complex PCR Enterococcus sp PCR E. coli (PCR) H. influenzae (PCR) Human Metapneumovir PCR Influenza A (RT-PCR) Influenza Type A (PCR) Influenza B (RT-PCR) Influenza Type B (PCR) Klebsiella oxytoca PCR Klebsiella pneumoniae List. monocytogenes PCR M. pneumoniae (PCR) N. meningitidis (PCR) Parainfluenza 1 (PCR) Parainfluenza 2 (PCR) Parainfluenza 3 (PCR) Parainfluenza 4 (PCR) Proteus species (PCR) RSV (PCR) Entero/Rhino (PCR) Salmonella (PCR) Serratia marcescens PCR Staphylococcus sp PCR Staph aureus (PCR) mecA-Methicil Res Gene Streptococcus sp PCR Group A Strep (PCR) Strep agalactiae (PCR) Strep pneumoniae (PCR) P. aeruginosa (PCR) Sienna/B-Vanco Res Genes KPC-Carbap Res Gene PCR Assessment & Plan Assessment & Plan narrative: Rebekah is a 34-year-old female with locally advanced breast cancer undergoing neoadjuvant therapy was admitted hospital with bacteremia and sepsis. Blood cultures demonstrate bacteremia with strep pyogenes and this is been drawn from the Port-A-Cath. Is no local signs of infection overlying the port no erythema tenderness but she clearly has bacteremia and secondary sepsis and I think it would be prudent to remove the Port-A-Cath, one because she is immunocompromised secondary to chemotherapy and two there is risk of cardiac valvular damage secondary to inadequately treated strep. This was discussed with the patient as well as her oncologist Dr. Shelton. Will remove the port today.
--- NOTE | 2019-07-19 11:56 | DIET.PN ---
Dietary Progress Note Assessment: Ms. Mcdaniel is a 34-year-old female with newly diagnosed invasive breast CA, status post neoadjuvant chemo on 07/05/2019 and Neulasta on 07/06/2019 who presented with fever, headache, nausea, vomiting and diarrhea. HT: 160.02cm WT: 80.5kg UBW: 84kg %change:5% (1mo) BMI: MNA: 11 Tom: 19 Nutrition Diagnosis: Moderate protein calorie malnutrition r/t GI complications aeb energ intake <75% EER, GI symptoms (N/V/D), 5% weight loss in 1 mo, DX cancer with therapy. Interventions: 1. Alternate ensure enlive and high protein fruit smoothies to provide nutrition while pt is unable to eat normal food. 2. High myriam, high pro MNT. Small, frequent meals. Diet Order: full liquid EER: 1600 myriam @30cal/kg IBW; 80g pro Monitoring/Evaluations: weight, PO's, diet advancement
--- NOTE | 2019-07-19 12:12 | CM.DANOTE ---
DCP: Case received, EMR reviewed. Obtained information from patient's medical notes in order to obtain some information for DCP assessment, since patient is on droplet precautions. Have also left a message at oncology with Reina Mckeon to inquire if she has seen patient regarding her diagnosis. DCP assessment completed with information currently available. Patient is a 34 year old female who admitted yesterday afternoon to the care of the hospitalist team. PCP: Dr. Cosme Payer: confirmed: Edgar Farley. Patient came to the hospital for direct admit from oncology office. Patient had just started chemo treatment for invasive breast cancer which was diagnosed in June. She started chemo on 3-6, via port a cath. Patient was noted to have fever, myalgias, as well as some renal issues. Patient is here for bacteremia, and will be going in to surgery to have port a cath removed. Left a message with Reina Mckeon to inquire if she has worked with patient due to new diagnosis, and any social concerns. Patient is on droplet precautions, rule out COVD-19, and have not been able to meet with patient. According to notes, patient resides in [place] with , Luis, and children. Her is active duty. P: DCP to continue to follow closely, and will be available for any resources needed at discharge. Patient should be able to go home when medically stable, but is unclear if she will need any prolonged IV antibiotics. Domenica Avilez RN/Irrigation Flume Layer
--- NOTE | 2019-07-19 12:38 | PM.OP.1 ---
Operative Date/Time/Diagnoses Date of procedure: 07/19/19 Time of procedure: 12:39 Pre-op diagnosis: Bacteremia, implanted Port-A-Cath Post-op diagnosis: same Procedure & Clinicians Procedure: Removal of Port-A-Cath Same procedure as scheduled: Yes Indications: Strep pyogenes bacteremia with sepsis in the setting of an implanted Port-A-Cath Surgeon: Markus Pinzon Anesthesia Type: MAC +/- Operative Notes Findings: Minimal fluid within the Port-A-Cath pocket Specimen(s): other (Fluid from Port-A-Cath pocket, Port-A-Cath device) Estimated Blood Loss (mL): 5 Procedure in detail: This procedure was performed in the patient's room at the bedside as there was concern that she had possible mclain virus and was not felt to be safe to transfer to the operating room. Monitored anesthesia care was induced she was receiving vancomycin prior to the skin procedure. She was prepped and draped in sterile fashion. Time-out was performed ensure the correct patient procedure necessary equipment within the room. 0.25% bupivacaine was infiltrated through the prior skin incision. Incision was made through the scar overlying the Port-A-Cath in the left chest. Subcutaneous tissues were divided. There was a minimal amount of serous fluid within the pocket of the Port-A-Cath which was sent for culture there was no purulence. The insertion point of the catheter was over sewed with a [id number] 3 0 Vicryl stitch and then the catheter tip was withdrawn. The Port-A-Cath was then removed and passed off the field as specimen. Hemostasis was achieved. Because there was a concern that this was potentially infected I chose not to close the wound but instead packed it with iodoform gauze. Patient tolerated the procedure well. Complications: none Post-operative Condition: stable Disposition: Acute Care
--- NOTE | 2019-07-19 12:47 | SUR.OPER ---
Supine on padded inpatient bed in patient's room (210), head on pillow, arms at sides, legs uncrossed.
[2019-07-19] MEDS: BUPIVACAINE 0.25% (PF) VIAL 30 ML INJ (12:55)
--- NOTE | 2019-07-19 14:07 | PC.NURSE ---
AM Shift. pt AO and receptive to care. ISO for staph in blood and to rule out COVID (swabbed 07/17). pt denying pain but reporting generalized weakness and aches in lower extremities. Reporting nausea with one episode of emesis (100mL clear-green color). Loss of appetite since admission with sips of smoothie at lunch. K rider infusing 88/hr to right hand. 1PA to BSC. Dr. Pinzon removed left chest port this afternoon (around 1300) in room and place new PIV to right hand. Port site packed with 1/2 inch Iodoform with a folded 4x4 over and tegaderm. Date and time added to tegaderm.
--- NOTE | 2019-07-19 14:21 | PC.NURSE ---
Talked to Dr. Pinzon about 's concerns. called two times expressing concerns about the port removal and what that means for future chemo treatments. asked for a provider to call him back to address those concerns. I told Dr. Pinzon once before the removal and the OR staff after the second call. Dr. Pinzon then removed the port and upon leaving the room I told him again that the patient's is requesting a call. He stated that he will call the soon.
[2019-07-19] MEDS: KCL 20 MEQ IN NS 1,000 ML 100 MEQ IV (17:06)
[2019-07-19] MEDS: AZITHROMYCIN 500 MG in DEXTROSE 5% IN WATER 250 ML IV (18:13)
[2019-07-19] MEDS: KETOROLAC 30 MG/ML VIAL IV (22:13)
[2019-07-20] VITALS (8 sets, daily range): BP systolic 91–110; BP diastolic 47–67; PULSE 83–98; RESP 16–20; TEMP 36.4–36.9; O2SAT 98–100
--- NOTE | 2019-07-20 00:24 | DI.US.S_ITS ---
PROCEDURE: US PERIPH VENOUS LOW EXTREM LT INDICATIONS: LEFT CALF PAIN TECHNIQUE: Real-time imaging, as well as color and pulse Doppler interrogation, were performed of the lower extremity deep veins from the inguinal ligament to the popliteal fossa. COMPARISON: None. FINDINGS: The common femoral, femoral and popliteal veins are normally compressible, and free of intraluminal thrombus. Color and pulse Doppler demonstrate normal phasic intraluminal flow. There is normal augmentation response to distal compression maneuver. IMPRESSION: Negative left lower extremity duplex ultrasound for DVT. Dictated by: Alexis Mcgarry M.D. on 07/20/2019 at 7:45 Approved by: Alexis Mcgarry M.D. on 07/20/2019 at 7:46
[2019-07-20] MEDS: KCL 20 MEQ IN NS 1,000 ML 100 MEQ IV ×2 (01:20→16:25)
[2019-07-20] MEDS: ACETAMINOPHEN 325 MG TABLET 650 MG PO ×3 (01:21→17:45)
--- NOTE | 2019-07-20 01:33 | PC.NURSE ---
Addendum entered by Italia Lynne R.N. 07/20/19 03:41: Up to BSC and having liquid stool; medicated with Imodium and approximately 20 minutes later had 100cc emesis. When patient checked on states she no longer feels nauseated at this time. Original Note: Patient seen and assessed at 2347. Is alert and oriented and states she is feeling better than previous night. Breath sounds diminished but CTA with RA sat of 98%. HRR but tachy at 101. BP consistently low; currently 94/46. Denies nausea but requested to take as would like to take Tylenol but states she hasn't been able to keep the Tylenol down; medicated with Zofran. Discussed pain medication regimen with CHLOÉ Meza, and new orders received and Tylenol given after night pharmacy verified meds. Diet advanced to regular per verbal order of CHLOÉ so also given crackers. BT present and abdomen is soft. Up to BSC with SBA; states she feels weak in bilateral LE. Is complaining of 2/10 headache and 3/10 left calf pain. [employer]ING [employer]ER informed of calf pain. No redness or firmness noted in calf; patient states it feels bruised. Pain increases with flexion of foot. US ordered and just completed and tech reports it was negative for DVT. Wearing bilateral calf SCD's. Remains on contact/droplet precautions while ruling out coronavirus as well as growing gm + cocci on taylor cath culture site. Dressing to left chest where taylor cath was removed is CDI. Fall risk score is moderate; bed alarm is activated.
[2019-07-20] MEDS: LOPERAMIDE 2 MG CAPSULE PO ×2 (02:22→10:36)
[2019-07-20] MEDS: CEFEPIME 2 GM in SODIUM CHLORIDE 0.9% 100 ML 200 ML IV (04:44)
[2019-07-20 06:11] LABS: Add Manual Diff / Slide Review NO; Basophils Absolute Auto 0 /uL (0-100); Basophils Percent Auto 0.2 % (0-2); Eosinophils Absolute Auto 0 /uL (0-450); Hematocrit 29.9 % (36-46); Hemoglobin 10.2 g/dL (12.0-16.0); Lymphocytes Absolute Auto 800 /uL (1100-4500); Lymphocytes Percent Auto 6.7 % (25-40); Mean Corpuscular HGB Conc 34.1 % (30-36); Mean Corpuscular Hemoglobin 28.9 PG (26-34); Mean Corpuscular Volume 84.9 fL (80-100); Monocytes Absolute Auto 500 /uL (0-900); Monocytes Percent Auto 3.7 % (3-14); Neutrophils Absolute Auto 11100 /uL (1500-7000); Neutrophils Percent Auto 89.4 % (50-75); Platelet Count 56 X10^3/uL (150-400); Red Blood Cell Count 3.52 X10^6/uL (4.0-5.2); White Blood Cell Count 12.4 X10^3/uL (4.5-11.0)
[2019-07-20 06:24] LABS: Alanine Aminotransferase 39 IU/L (<35); Albumin 3.1 g/dL (3.5-5.0); Albumin Globulin Ratio 1.1 (1.0-2.8); Alkaline Phosphatase 69 U/L (38-126); Aspartate Aminotransferase 31 IU/L (14-36); Bilirubin Total 0.6 mg/dL (0.2-1.3); Blood Urea Nitrogen 14 mg/dL (7-17); Carbon Dioxide 20 mmol/L (22-32); Chloride 114 mmol/L (98-107); Estimated Glomerular Filt Rate > 60.0 mL/min (>60); Globulin 2.9 g/dL (1.7-4.1); Glucose 94 mg/dL (70-100); HEMOLYSIS < 15 (0-50); Magnesium 2.7 mg/dL (1.6-2.3); Potassium 4.1 mmol/L (3.4-5.1); Sodium 139 mmol/L (137-145)
[2019-07-20 06:26] LABS: Vancomycin Trough 7.8 ug/mL (10-20)
[2019-07-20] MEDS: VANCOMYCIN TROUGH 1 REQUEST MISC (06:35)
[2019-07-20] MEDS: VANCOMYCIN 1,000 MG/200 ML PIGGYBACK 200 MG IV ×2 (06:35→12:58)
--- NOTE | 2019-07-20 07:34 | PC.NURSE ---
Addendum entered by Ceci Ivan R.N. 07/20/19 14:58: left hcest port dressing removed without difficulty, WOund bed irrigated with NS, skin surrounding wound cleansed with NS, pat dry with gauze. Iodoform gauze packed into wound bed, covered with folded 4X4 gauze and secured with tegaderm dressing. Pt tolerated well. Addendum entered by Ceci Ivan R.N. 07/20/19 14:01: Spoke with Dr. Jarrell at 1015 during unit rounds, request for possible Probiotic for pt, Dr to assess. Pt able to make needs known using call light. Remains in Contact/Droplet/Airborne isolation for rule out testing. Denies pain or discomfort, states has abd intermittent cramping, total 2 episodes of diarrhea today. PRN Immodium given at 1045 as well as PRN Tylenol for anterior headache. Left chest previous port-a-cath site dressing intact with gauze and tegaderm, dry serous fluid to bottom of dressing shadowing at edges. Pt had shower today indep without issue. Denied feeling light-headed or dizzy with ambulation. States feeling overall better today compared to yesterday. Support and encouragement provided. Left inner lower leg around calf tender to touch, already known to physician group, no skin issue noted.Able to tolerated calf SCD's on to BLE. Addendum entered by Ceci Ivan R.N. 07/20/19 10:52: Live called for an update around 1052, update given. Original Note: Day Shift- Pt's Live called during shift change. Called Live back around 0730 and brief update given. Live would like a call from Physician with update when pt seen.
[2019-07-20] MEDS: ONDANSETRON 4 MG/2 ML INJ IV (09:52)
--- NOTE | 2019-07-20 11:40 | DI.ECHO.S_ITS ---
Echocardiogram Report + + :Name: OSMAN ESPINOZA Study Date: 07/20/2019 Height: 63 in : :Hospital Exam Location: [facility] Weight: 177 lb : : Gender: Female BSA: 1.8 m2 : :: 1985 Age: 34 yrs BP: 105/65 mmHg: :Reason For Study: Endocarditis : :Ordering Physician: [place] : :Hospitalist Performed By: Bailee Page : :Referring: Eder BALLARD E : + + Interpretation Summary The left ventricle is normal in size, wall thickness, and systolic function without any focal wall motion abnormalities. The ejection fraction is estimated to be 55-60%. Diastolic parameters suggest probable normal left ventricular diastolic function and normal filling pressures. The right ventricle is mildly dilated. The right ventricular systolic function is normal. The right ventricular systolic pressure is estimated to be at least 20 mmHg based on an estimated right atrial pressure of 8 mm Hg. The left atrial size is normal. The right atrium is mildly dilated. The aortic root is normal size. No obvious valvular heart disease and no obvious vegetations noted on this study. Procedure: A two-dimensional transthoracic echocardiogram with color flow and Doppler was performed. The study quality was technically adequate. There is no prior echocardiogram noted for this patient. The patient was in normal sinus rhythm during the exam. Left Ventricle: The left ventricle is normal in size, wall thickness, and systolic function without any focal wall motion abnormalities. The ejection fraction is estimated to be 55-60%. Diastolic parameters suggest probable normal left ventricular diastolic function and normal filling pressures. Right Ventricle: The right ventricle is mildly dilated. The right ventricular systolic function is normal. Atria: The left atrial size is normal. The right atrium is mildly dilated. There is no Doppler evidence for an interatrial shunt. Mitral Valve: The mitral valve is normal in structure and function. There is no obvious vegetation seen on the mitral valve. There is trace mitral regurgitation. Aortic Valve: The aortic valve is grossly normal. The aortic valve opens well. There is no obvious aortic valvular vegetation. No aortic regurgitation is present. Tricuspid Valve: The tricuspid valve is normal in structure and function. There is no obvious tricuspid valve vegetation. There is a trace or physiologic amount of tricuspid regurgitation. The right ventricular systolic pressure is estimated to be at least 20 mmHg based on an estimated right atrial pressure of 8 mm Hg. Pulmonic Valve: The pulmonic valve is not well visualized. There is no significant valvular heart disease. Great Vessels: The aortic root is normal size. The ascending aorta is normal in size. The pulmonary artery is not well visualized, but is probably normal size. The IVC is of normal diameter and collapses less than 50% with a sniff. This suggests a right atrial pressure of 8 mm Hg. Pericardium/ Pleura There is no pericardial effusion. There is no pleural effusion. MMode/2D Measurements & Calculations LVIDd: 4.8 cm LVOT diam: 2.2 cm LVIDs: 3.5 cm Ao root diam: 3.3 cm FS: 27.0 % asc Aorta Diam: 2.8 cm IVSd: 0.57 cm Ao Arch Diam (Prox Trans): 2.4 cm LVPWd: 0.66 cm LV mason. diameter/BSA (cm/m^2): 2.6 LV sys. diameter/BSA (cm/m^2): 1.9 LA A2 area: 19.1 cm2 RA long axis: 5.2 cm LA A4 area: 20.9 cm2 RA area: 18.4 cm2 LA length (vol): 5.5 cm RA vol: 54.9 ml LA vol: 61.9 ml RA : 29.9 ml/m2 LA vol index: 33.7 ml/m2 IVC diam: 1.9 cm RVD1 (basal): 4.6 cm RVD2 (mid): 4.4 cm TAPSE: 2.1 cm Doppler Measurements & Calculations Ao V2 max: 132.8 cm/sec LVOT Max Benjamin: 85.0 cm/sec Ao V2 mean: 88.0 cm/sec LV V1 max P.9 mmHg Ao max P.1 mmHg LV V1 VTI: 15.7 cm Ao mean P.5 mmHg IRIS(I,D): 2.6 cm2 Ao V2 VTI: 23.1 cm IRIS(V,D): 2.5 cm2 sev ratio: 0.68 IRIS indexed to BSA (cm^2/m^2): 1.4 MV E max benjamin: 77.6 cm/sec TR max benjamin: 175.8 cm/sec MV A max benjamin: 57.9 cm/sec TR max P.4 mmHg MV E/A: 1.3 PA V2 max: 62.2 cm/sec Med Peak E' Benjamin: 9.4 cm/sec PA V2 mean: 43.9 cm/sec E/E' med: 8.3 PA mean P.86 mmHg Lat Peak E' Benjamin: 16.9 cm/sec PA Accel Time: 0.12 sec E/E' lat: 4.6 E/e' average: 6.4 MV P1/2t: 62.8 msec MV P1/2t max benjamin: 77.6 cm/sec SV(LVOT): 60.6 ml MVA(P1/2t): 3.5 cm2 _ Reading Physician:02:40 PM
--- NOTE | 2019-07-20 12:08 | P.PN_ITS ---
Subjective Subjective Date Patient Seen: 07/20/19 Interval history: She is seen today to follow-up her breast cancer, strep pyogenes bacteremia and thrombocytopenia. Her albumin is 3.1. The magnesium has risen up from 2.3 to 2.7, initially starting at 1.2. The CMP is normal. The vancomycin trough is 7.8. The procalcitonin is 11.8. The white blood count is 12.4 and the platelets have dropped from 67 down to 56. Now that we have identified the bacteremic organism we will clarify her antibiotics. I have discussed current treatment and prognosis with her Ranjit who is at home taking care of their young child. She has no history of endocarditis. She has no heart murmur. Her chemotherapy port has been removed yesterday. Overall, she says she is feeling much better. Exam Vital Signs (past 8 hours): - 07/20/19 08:00 Temperature 98.4 F Pulse Rate 83 Respiratory Rate 16 Blood Pressure 91/56 L Pulse Oximetry 100 Oxygen Delivery Method Room Air Oxygen Flow Rate 0 Narrative Exam Narrative: She is alert and oriented x3. No apparent distress. Heart is regular rate and rhythm without murmur. Lungs are clear to auscultation bilaterally Extremities have no ankle edema. Objective Labs Result Diagrams: 07/20/19 05:30 07/20/19 05:30 Labs: Laboratory Results - last 24 hr 07/20/19 07/20/19 07/20/19 05:30 05:30 05:30 WBC 12.4 H RBC 3.52 L Hgb 10.2 L Hct 29.9 L MCV 84.9 MCH 28.9 MCHC 34.1 RDW 14.0 Plt Count 56 L Neut % (Auto) 89.4 H Lymph % (Auto) 6.7 L [place] % (Auto) 3.7 Eos % (Auto) 0.0 L Baso % (Auto) 0.2 Neut # (Auto) 02622 H Lymph # (Auto) 800 L [place] # (Auto) 500 Eos # (Auto) 0 Baso # (Auto) 0 Sodium Potassium Chloride Carbon Dioxide BUN Creatinine Estimated GFR BUN/Creatinine Ratio Glucose Calcium Magnesium Total Bilirubin AST ALT Alkaline Phosphatase Total Protein Albumin Globulin Albumin/Globulin Ratio Procalcitonin 11.80 H Vancomycin Trough 7.8 L 07/20/19 05:30 WBC RBC Hgb Hct MCV MCH MCHC RDW Plt Count Neut % (Auto) Lymph % (Auto) [place] % (Auto) Eos % (Auto) Baso % (Auto) Neut # (Auto) Lymph # (Auto) [place] # (Auto) Eos # (Auto) Baso # (Auto) Sodium 139 Potassium 4.1 Chloride 114 H Carbon Dioxide 20 L BUN 14 Creatinine 0.61 Estimated GFR > 60.0 BUN/Creatinine Ratio 23.0 H Glucose 94 Calcium 8.0 L Magnesium 2.7 H Total Bilirubin 0.6 AST 31 ALT 39 H Alkaline Phosphatase 69 Total Protein 6.0 L Albumin 3.1 L Globulin 2.9 Albumin/Globulin Ratio 1.1 Procalcitonin Vancomycin Trough Assessment & Plan Assessment & Plan narrative: Rebekah Mcdaniel is a 34-year-old female with newly diagnosed invasive breast CA, status post neoadjuvant chemo on 07/05/2019 and Neulasta on 07/06/2019 who presented with 1 day onset of fever, myalgias, headache, nausea, vomiting and diarrhea. 1. Severe sepsis, present on admission. Resolving. -Patient presented ill with high fever, myalgias, headache, GI symptoms, hypotension, tachycardia, and leukocytosis (possibly some component of rebound leukocytosis from Neulasta given on 07/06/2019). Sofa score 2 for CHASE and low platelet. -Early goal-directed therapy med including IV fluid resuscitation and broad- spectrum antibiotics. -source organism is identified as strep pyogenes. The seed source is likely to be the chemotherapy port which has been removed. An echocardiogram will be done to rule out any obvious valvular endocarditis. 2. Strep pyogenes bacteremia, present on admission. Active. -Unclear source of infection but suspicious of left Port-A-Cath infection versus untreated strep throat. -Patient presented with fever, myalgias, headache, nausea, vomiting, and diarrhea. -Chest x-ray demonstrated increased lung markings in bilateral hilar region with suggestion of right infrahilar infiltrate/atelectasis. No pleural effusion or pneumothorax. -CT chest without contrast demonstrated bibasilar atelectasis without any evidence of pneumonia. Mild fat stranding of left Port-A-Cath possibly commercial representative of Port-A-Cath infection. -Blood cultures positive for 4:4 bottles for strep pyogenes. -Initial WBC 28.4 and procalcitonin 29.21. Continue to trend WBC and procalcitonin daily. -Respiratory viral PCR negative. COVID 19 sent and pending. COVID-19 can present with fever and GI only symptoms in about 10% of cases, although patient does note subjective dyspnea without cough. -GI stool PCR negative. -Continue supportive treatment with antipyretics, antiemetics and IV fluids. Slowly advance diet as tolerated. -rationalize antibiotics to ceftriaxone for the strep pyogenes. Duration of IV antibiotics to be determined based on outcome of echocardiogram, trending of temperatures, white count and procalcitonin. She is likely to need 2 weeks of IV ceftriaxone which can probably be transitioned to outpatient soon. 3. Acute kidney injury, present on admission. Resolved. -Initial creatinine 1.3. Baseline creatinine 0.57. -Likely prerenal secondary sepsis and volume depletion. -Received 2 L NS administered at Oncology Clinic. -Avoid nephrotoxic agents. -Continue to monitor urine output and renal function closely. 4. Hypomagnesemia, present on admission. Resolved. -Secondary to GI losses. -Initial magnesium level 1.2. Received magnesium sulfate 2 g IV x1. Magnesium level now 2.7. -Continue to monitor and replete magnesium as necessary. 5. Hypokalemia, present on admission. Active. -Secondary to GI losses. -Initial potassium level 3.2. Received potassium chloride 40 mEq IV x1. Potassium level now normal. -Continue to monitor and replete potassium as necessary. 6. Right invasive breast cancer, present on admission. Active. -Followed by Oncology, Dr. Murdock. -Status post neoadjuvant chemo 07/05/2019, Neulasta 07/06/2019 Code status: Full code DVT prophylaxis: Lovenox, SCDs Quality VTE Deep Vein Thrombosis/Pulmonary Embolism Present on Admission: No
[2019-07-20 14:11] LABS: COVID19 Sendout Not Detected (Not Detected)
--- NOTE | 2019-07-20 14:52 | CM.DPC ---
DCP: continued: case received and discussed in Team Rounds. EMR reviewed including the oncology TITLE INSURANCE SALES REPRESENTATIVE/navigator Reina Winters helpful documentation re pt's social situation and resources that are being provided at the Oncology Center. Pt is followed by oncologist Dr. Shelton. Reina notes that pt lives with her , active duty who has applied for leave so that he can care for his while she undergoes oncology treatment as well as their children (7 months, 3 and a 6 year old). Pt's mother lives in [facility] and is able to provide some support. She will be continuing to support pt in the Pt is currently being treated for a strep bacteremia, on IV antibiotics and Dr. Pinzon,consulting surgeon has removed L portacath as this is considered a likely source of the infection. Pt is on a COVID 19 rule out. Her last chemo treatment was 07/04. It is noted that pt today is up in room. Was able to take a shower independently. Will be following as POC unfolds.
[2019-07-20] MEDS: CEFTRIAXONE 1 GM/50 ML FROZ.PIGGY IV (16:02)
[2019-07-20] MEDS: KETOROLAC 15 MG/ML VIAL IV (16:26)
--- NOTE | 2019-07-20 16:41 | PC.NURSE ---
Addendum entered by Amelia Austin R.N. 07/20/19 23:43: Evening sandblaster supervisor, Zahira, reports to this copywriter pt negative for covid-19. Pt removed from precautions and informed. States toradol did not relieve headache entirely. Tylenol as per emar. No GI complaints verbalized. Denies any nausea or diarrhea this evening shift. Up ad reno in room. Original Note: Pt up ad reno in room. States no diarrhea with present void. Denies nausea. States headache returning 06/11. Dressing to left anterior chest dry and intact. BL calf scd's replaced when pt back in bed. Pt given toradol iv for c/o headache pain. Will monitor. Encouraged to call for needs. Oral fluids as requested. Isolation observed.
[2019-07-21] VITALS (10 sets, daily range): BP systolic 101–118; BP diastolic 58–77; PULSE 90–106; RESP 16–19; TEMP 36.3–37; O2SAT 97–100
[2019-07-21] MEDS: CEFTRIAXONE 1 GM/50 ML FROZ.PIGGY IV ×2 (01:38→13:17)
[2019-07-21] MEDS: KCL 20 MEQ IN NS 1,000 ML 100 MEQ IV (02:56)
[2019-07-21] MEDS: ONDANSETRON 4 MG/2 ML INJ IV (03:27)
[2019-07-21] MEDS: KETOROLAC 15 MG/ML VIAL IV ×2 (03:27→09:59)
[2019-07-21 06:48] LABS: BUN Creatinine Ratio 14.3 (6-22); Blood Urea Nitrogen 8 mg/dL (7-17); Calcium 8.1 mg/dL (8.4-10.2); Carbon Dioxide 21 mmol/L (22-32); Chloride 115 mmol/L (98-107); Estimated Glomerular Filt Rate > 60.0 mL/min (>60); Glucose 86 mg/dL (70-100); HEMOLYSIS < 15 (0-50); Potassium 4.1 mmol/L (3.4-5.1); Sodium 140 mmol/L (137-145)
[2019-07-21 06:58] LABS: Add Manual Diff / Slide Review NO; Basophils Absolute Auto 0 /uL (0-100); Basophils Percent Auto 0.3 % (0-2); Eosinophils Absolute Auto 0 /uL (0-450); Hematocrit 28.9 % (36-46); Hemoglobin 9.8 g/dL (12.0-16.0); Lymphocytes Absolute Auto 900 /uL (1100-4500); Lymphocytes Percent Auto 12.1 % (25-40); Mean Corpuscular HGB Conc 33.9 % (30-36); Mean Corpuscular Hemoglobin 29.1 PG (26-34); Mean Corpuscular Volume 85.9 fL (80-100); Monocytes Absolute Auto 500 /uL (0-900); Monocytes Percent Auto 7.3 % (3-14); Neutrophils Absolute Auto 6000 /uL (1500-7000); Neutrophils Percent Auto 80.3 % (50-75); Platelet Count 82 X10^3/uL (150-400); Red Blood Cell Count 3.37 X10^6/uL (4.0-5.2); Red Cell Distribution Width 13.7 % (11.6-14.8); White Blood Cell Count 7.4 X10^3/uL (4.5-11.0)
[2019-07-21 07:06] LABS: Procalcitonin 5.49 ng/mL (<0.5)
--- NOTE | 2019-07-21 11:25 | DI.RAD.S_ITS ---
PROCEDURE: XR CHEST 1V INDICATIONS: PICC line confirmation TECHNIQUE: One view of the chest was acquired. COMPARISON: [facility], , XR CHEST 1V, 07/18/2019, 17:00. FINDINGS: Surgical changes and devices: A left-sided PICC line catheter has been placed in the interim with the tip overlying the high superior vena cava. The left-sided Port-A-Cath central line has been removed. Lungs and pleura: Lungs are clear. No pleural effusions or pneumothorax. Mediastinum: Mediastinal contours appear normal. Heart size is normal. Bones and chest wall: No suspicious bony lesions. Overlying soft tissues appear unremarkable. Right breast calcifications appear to be present. IMPRESSION: Left-sided PICC line appears to be in appropriate position. Dictated by: Honorio Akers M.D. on 07/21/2019 at 10:59 Approved by: Honorio Akers M.D. on 07/21/2019 at 10:59
[2019-07-21] MEDS: ACETAMINOPHEN 325 MG TABLET 650 MG PO ×2 (12:03→17:16)
--- NOTE | 2019-07-21 14:02 | PC.NURSE ---
Day Shift- Pt up ad reno in room, indep with steady gait upon observation. Pt stated feeling better overall. Does c/o intermittent anterior headache. States that based on a previous head scan, she reported it showed chronic sinusitis. Toradol IV prn given at 1000, effective at first, then pt stated she worked herself up regarding having the PICC line placed today and her anxiety increased her headache. Support and encouragement provided. Scheduled Tylenol given for headache as well. Pt had one loose/soft BM today, no nausea. PICC line insertion completed around 1200 by [employer]. Okay to use from CXR confirmation reported by [employer]. Pt's Live called at 1400 for an update, gave appropriate code word Amanuel. Update given. Previously spoke with Dr. Montano prior to this phone call and pt's ECHO for yesterday has no new issues to report. Live also updated with this info.
--- NOTE | 2019-07-21 14:46 | CM.DPC ---
DCP: continued: Met with pt during Bedside Team Rounds. Introduced self and role. Pt states she is feeling a bit better today. Pt is now off specialized droplet precautions: COVID -19 test results: negative. Dr. Montano confirms that pt is going to need 2 weeks of IV recephin at 2x day, ideally in the home setting. Discussed options for this with pt identifying [facility] as first choice of vendor to try. She states she is comfortable doing this at home as she has good support from her family. PICC being placed today. Referral has been sent in via fax and phone discussion with [facility]. She will alert her team to start the [employer] authorization process. Face sheet, H&P, Dr. Jarrell's note of yesterday, ht/wt and Covid-19 test results are included in the fax. Will send Dr. Montano's progress note for today as soon as it is completed. P: at this point: home with [facility] to follow for IV antibiotics when pt stable for same and auth is in place (not expected before Saturday 07/22)
--- NOTE | 2019-07-21 14:47 | P.PN_ITS ---
Subjective Subjective Date Patient Seen: 07/21/19 Interval history: Patient is a 34-year-old female with recent diagnosis of breast cancer admitted with strep pyogenes sepsis and bacteremia. She presented with fever and vomiting and diarrhea which have all resolved. Exam Vital Signs (past 8 hours): - 07/21/19 07:32 07/21/19 13:17 Temperature 97.7 F 97.4 F L Pulse Rate 94 H 106 H Respiratory Rate 16 16 Blood Pressure 103/67 104/58 L Pulse Oximetry 98 98 Oxygen Delivery Method Room Air Oxygen Flow Rate 0 Narrative Exam Narrative: General: Alert and pleasant female in no acute distress Chest: Prior left Port-A-Cath site has clean and dry dressing. Objective Labs Result Diagrams: 07/21/19 06:09 07/21/19 06:09 Labs: Laboratory Results - last 24 hr 07/21/19 07/21/19 07/21/19 06:09 06:09 06:09 WBC 7.4 RBC 3.37 L Hgb 9.8 L Hct 28.9 L MCV 85.9 MCH 29.1 MCHC 33.9 RDW 13.7 Plt Count 82 L Neut % (Auto) 80.3 H Lymph % (Auto) 12.1 L [place] % (Auto) 7.3 Eos % (Auto) 0.0 L Baso % (Auto) 0.3 Neut # (Auto) 6000 Lymph # (Auto) 900 L [place] # (Auto) 500 Eos # (Auto) 0 Baso # (Auto) 0 Sodium 140 Potassium 4.1 Chloride 115 H Carbon Dioxide 21 L BUN 8 Creatinine 0.56 Estimated GFR > 60.0 BUN/Creatinine Ratio 14.3 Glucose 86 Calcium 8.1 L Magnesium 2.0 Procalcitonin 5.49 H Assessment & Plan Assessment & Plan narrative: 1. Severe sepsis, present on admission. -Patient presented ill with high fever, myalgias, headache, GI symptoms, hypotension, tachycardia, and leukocytosis. Sofa score 2 for CHAES and low platelet. -Early goal-directed therapy med included IV fluid resuscitation and broad- spectrum antibiotics. -source organism is identified as strep pyogenes. The seed source is likely to be the chemotherapy port which has been removed. An echocardiogram will be done to rule out any obvious valvular endocarditis. -COVID -19 obtained at time of admission due to uncertain nature of her fever and is negative 2. Strep pyogenes bacteremia, present on admission. Active. -patient had episode of severe sore throat for 1 week after her recent chemotherapy suggestive of strep throat which subsequently resulted in bacteremia and seeded her Port-A-Cath -Port-A-Cath was removed, catheter tip also growing strep pyogenes -Chest x-ray demonstrated increased lung markings in bilateral hilar region with suggestion of right infrahilar infiltrate/atelectasis. No pleural effusion or pneumothorax. -CT chest without contrast demonstrated bibasilar atelectasis without any evide nce of pneumonia. Mild fat stranding of left Port-A-Cath possibly congressional representative of Port-A-Cath infection. -Blood cultures positive for 4:4 bottles for strep pyogenes. -transthoracic echo without evidence of valvular vegetation -continue Rocephin 1 g IV Q 12 hours to complete 2 week antibiotic course -PICC line 3. Acute kidney injury, present on admission. Resolved. -Initial creatinine 1.3. Baseline creatinine 0.57. -Likely prerenal secondary sepsis and volume depletion. 4. Hypomagnesemia, present on admission. Resolved. -Secondary to GI losses. -Initial magnesium level 1.2. Received magnesium sulfate 2 g IV x1. Magnesium level now 2.7. 5. Hypokalemia, present on admission. Resolved. -Secondary to GI losses. -Initial potassium level 3.2. Received potassium chloride 40 mEq IV x1. Potassium level now normal. 6. Right invasive breast cancer, present on admission. Active. -Followed by Oncology, Dr. Murdock. -Status post neoadjuvant chemo 07/05/2019, Neulasta 07/06/2019 7. Sinus headache, active -complaint of frontal headache with mild nasal stuff -ordered Flonase Patient with improving clinical course to continue on Rocephin. We are waiting for [facility] authorization for home infusion therapy. Quality VTE Deep Vein Thrombosis/Pulmonary Embolism Present on Admission: No
--- NOTE | 2019-07-21 17:39 | PC.NURSE ---
Addendum entered by Aleksandra Martinez R.N. 07/21/19 21:53: Pt had uneventful evening, Denies discomfort. Dsg to left chest where taylor cath was removed,changed, no drainage noted. Site is approximately 23 cent piece size. Iodoform packing placed, covered w/ folded 4x4 & opsite, Call light w/in reach. call appropriately for needs. Continue w/plan of care. Original Note: Pt up ad reno in room independently/ Denies discomfort at this time Lungs clear, SpO2 97% RA MARIA GUADALUPE PICC intact/patent. Call light w/in reach, pt calls appropriate for needs.
[2019-07-21] MEDS: FLUTICASONE 120 SPRAY/16 GM SPRAY.SUSP NASAL (20:19)
[2019-07-22] VITALS (10 sets, daily range): BP systolic 98–115; BP diastolic 58–75; PULSE 86–97; RESP 16–19; TEMP 36.7–37.2; O2SAT 95–100
[2019-07-22] MEDS: CEFTRIAXONE 1 GM/50 ML FROZ.PIGGY IV ×2 (00:48→12:56)
[2019-07-22] MEDS: KETOROLAC 15 MG/ML VIAL IV ×2 (03:44→22:35)
[2019-07-22] MEDS: FLUTICASONE 120 SPRAY/16 GM SPRAY.SUSP NASAL ×2 (08:15→20:30)
[2019-07-22] MEDS: SODIUM CHLORIDE 0.9% FLUSH 10 ML IV ×2 (12:56→15:32)
[2019-07-22] MEDS: ACETAMINOPHEN 325 MG TABLET 650 MG PO (12:56)
--- NOTE | 2019-07-22 13:06 | CM.DPC ---
DCP: continued: Met with pt again during Bedside Team Rounds. Updated her on [facility] plan and provided a brochure. PICC line has been place and this info plus Dr. Montano most recent progress note (07/20) has been faxed to [facility] this morning. Pt has had headache for 2 days and today in rounds is noting the start of a cough. Dr. Montano planned to see pt again later today. RN coordinator Zandra also confirmed in Rounds that pt's would be allowed to come to the hospital today for some teaching on the portacath (removed) daily dressing order by Dr. Pinzon. P: home when stable for same with spouse Live's ongoing support, continued followup withl the oncology center, home IV antibiotic at 2x day for a total of 14 days: pending [employer] auth: [facility] working on this...Recommend reaching out to them on Tuesday morning for update. DCP team will be following closely.
--- NOTE | 2019-07-22 13:53 | PC.NURSE ---
Day Shift- Pt's Live in pt's room for left chest dressing teaching as he will perform at home daily. Pt's performed dressing change with this RN's instruction and supervision. left chest dressing removed without difficulty, packing removed, had to moisten slightly with NS, irrigated wound with NS and pat dry with gauze. Incision without S/S of infection. Wound packed with Iodoform gauze, instructed Live to feel with Q-tip around wound edges in order to ensure proper packing of wound. Cleansed around wound to the size of the dressing with NS, pat dry. Covered with 4X4 gauze and covered with tegaderm. Pt tolerated well and and pt's stated he would be comfortable doing the dressing changes at home. Briefly explained and showed pt and her Live on IV antibiotic administration. Explained proper scrubbing the hub, let dry then flush with NS, check blood return in line, and then continue to flush. Pt also previously reported continued headache, with black lines when she looks out the window into the light. Dr. Montano aware when updating pt and her in room. Pt indep in room with steady gait.
--- NOTE | 2019-07-22 16:09 | P.PN_ITS ---
Subjective Subjective Date Patient Seen: 07/22/19 Interval history: Patient is a 34-year-old female with recent diagnosis of breast cancer admitted with strep pyogenes sepsis and bacteremia. She presented with fever and vomiting and diarrhea which have all resolved. She has been complaining of persistent frontal headache and had a head CT on July 05 which showed chronic frontal sinusitis. Exam Vital Signs (past 8 hours): - 07/22/19 11:40 07/22/19 15:56 Temperature 98.9 F 98.5 F Pulse Rate 96 H 91 H Respiratory Rate 18 18 Blood Pressure 112/75 113/72 Pulse Oximetry 98 95 Oxygen Delivery Method Room Air Oxygen Flow Rate 0 Narrative Exam Narrative: General: Very pleasant female who is in no acute distress Objective Labs Result Diagrams: 07/21/19 06:09 07/21/19 06:09 Assessment & Plan Assessment & Plan narrative: 1. Severe sepsis, strep pyogenes, present on admission, resolved. -Patient presented ill with high fever, myalgias, headache, GI symptoms, hypotension, tachycardia, and leukocytosis. Sofa score 2 for CHASE and low platelet. -Early goal-directed therapy med included IV fluid resuscitation and broad- spectrum antibiotics. -source organism is identified as strep pyogenes. The seed source is likely to be the chemotherapy port which has been removed. -COVID -19 obtained at time of admission due to uncertain nature of her fever and is negative 2. Strep pyogenes bacteremia, present on admission. Active. Resolving. -patient had episode of severe sore throat for 1 week after her recent chemotherapy suggestive of strep throat which subsequently resulted in bacteremia and seeded her Port-A-Cath -Port-A-Cath was removed, catheter tip also growing strep pyogenes -Chest x-ray demonstrated increased lung markings in bilateral hilar region with suggestion of right infrahilar infiltrate/atelectasis. No pleural effusion or pneumothorax. -CT chest without contrast demonstrated bibasilar atelectasis without any evidence of pneumonia. Mild fat stranding of left Port-A-Cath possibly utility sales representative of Port-A-Cath infection. -Blood cultures positive for 4:4 bottles for strep pyogenes. -transthoracic echo without evidence of valvular vegetation -continue Rocephin 1 g IV Q 12 hours to complete 2 week antibiotic course -PICC line placed in left arm 3. Acute kidney injury, present on admission. Resolved. -Initial creatinine 1.3. Baseline creatinine 0.57. -Likely prerenal secondary sepsis and volume depletion. 4. Hypomagnesemia, present on admission. Resolved. -Secondary to GI losses. -Initial magnesium level 1.2. Received magnesium sulfate 2 g IV x1. Magnesium level now 2.7. 5. Hypokalemia, present on admission. Resolved. -Secondary to GI losses. -Initial potassium level 3.2. Received potassium chloride 40 mEq IV x1. Potassium level now normal. 6. Right invasive breast cancer, present on admission. Active. -Followed by Oncology, Dr. Murdock. -Status post neoadjuvant chemo 07/05/2019, Neulasta 07/06/2019 7. Sinus headache, active -complaint of frontal headache with mild nasal stuff, outpatient CT July 05 showed chronic frontal sinusitis -continue on Flonase and also getting antibiotic management as above Patient with improving clinical course to continue on Rocephin. We are waiting for [facility] authorization for home infusion therapy. Patient and are comfortable doing dressing changes at surgical site of previous Port-A-Cath. Quality VTE Deep Vein Thrombosis/Pulmonary Embolism Present on Admission: No
[2019-07-23] VITALS (8 sets, daily range): BP systolic 109–120; BP diastolic 67–88; PULSE 89–99; RESP 16–18; TEMP 36.3–37; O2SAT 96–99
[2019-07-23] MEDS: CEFTRIAXONE 1 GM/50 ML FROZ.PIGGY IV ×3 (01:23→16:46)
--- NOTE | 2019-07-23 08:18 | CM.DPC ---
Addendum entered by Domenica Avilez R.N. 07/23/19 13:55: Have spoken to Pedro at [facility], who had already spoken to patient. Stated that most likely will approve, and patient can discharge. Also, spoke to pharmacist, Ximena, at [facility]. Stated that the plan is for patient to have a nurse out tomorrow at approximately 10:00, for infusions, and teaching. Updated Dr. Davis, who will write a prescription for antibiotics, and stated that they will be once a day. Patient has family to assist with dressing changes as well. Once prescription is completed, will fax to [facility]. Will include discharge summary when it is complete. Original Note: DCP Cont: Spoke to Pedro at [facility]. Confirmed that they do have the referral, and stated, referrals usually don't take that long. Let him know that this nurse case manager would discuss with hospitalist at team rounds to see if patient is ready for discharge today, but will also depend upon referral. P: DCP to continue to follow closely. Will discuss at team rounds, and update Pedro at [facility]. He may call patient and do assessment via phone. Domenica Avilez RN/H[employer]
[2019-07-23] MEDS: SODIUM CHLORIDE 0.9% FLUSH 10 ML IV ×2 (09:05→12:05)
[2019-07-23] MEDS: FLUTICASONE 120 SPRAY/16 GM SPRAY.SUSP NASAL (09:06)
[2019-07-23] MEDS: LOPERAMIDE 2 MG CAPSULE PO (09:07)
[2019-07-23] MEDS: KETOROLAC 15 MG/ML VIAL IV (12:04)
--- NOTE | 2019-07-23 14:00 | P.DS_ITS ---
History of Present Illness History of Present Illness Date Patient Seen: 07/18/19 Chief complaint: Breast cancer, dehydration,febrile Narrative: Written by Dr. Montano: Patient is a 34-year-old female with newly diagnosed ER+, WA+, HER2+, node positive invasive breast cancer who was sent over from infusion clinic due to fever, nausea vomiting and diarrhea of 1 day duration. Patient was diagnosed with right breast invasive breast cancer with positive axillary lymph node in June of this year. She had Port-A-Cath placed on 06/20/2019. She was started on neoadjuvant chemotherapy on 07/05/2019. She received Neulasta the following day on 07/06/2019. She had expected chemotherapy side effects but was feeling all better by a few days ago. Yesterday she had sudden onset of fever, rigors, myalgias. She had 3 episodes of vomiting and nonbloody diarrhea yesterd ay and again another 3 episodes of both today. She has had mild abdominal cramping. She has also had headache during this time. She denies urinary symptoms. She states she has felt at times short of breath but no cough. Patient lives with spouse and kids and has not had recent known sick contacts. Dr. Mojica evaluated her in oncology clinic and noted she was ill appearing and febrile with temp of 102.8?. Additionally she was mildly hypertensive BP 99 systolic, tachycardic heart rate 120, but breathing normally with O2 sat 96%. She appeared dehydrated and was given 2 L normal saline. Laboratories revealed WBC 94263, hemoglobin 13.2, platelets 110. She was in new renal failure with c reatinine 1.3 versus baseline creatinine 0.57. Electrolytes were abnormal with sodium 134, potassium 3.2, magnesium 1.2. LFTs mildly elevated with AST 43 and ALT 50 with normal bilirubin. Discharge Providers Provider Date of admission: 07/18/19 13:49 Discharge Date: 07/23/19 Primary care physician: Riddhi Cosme DO Consults: 07/18/19 15:54 Consult to Dietitian, Adult Routine Comment: Reason For Exam: Assessed at high risk 07/19/19 07:53 Consult to General Surgery Routine Comment: Consulting Provider: Markus Pinzon Reason for consultation: Port-a-cath infection Has provider been notified: Yes Discharge provider: Rosalinda Davis DO Summary Hospital Course Discharge Diagnosis: 1. Severe sepsis, strep pyogenes, present on admission. Resolved. 2. Strep pyogenes bacteremia, present on admission. Resolving. 3. Acute kidney injury, present on admission. Resolved. 4. Hypomagnesemia, present on admission. Resolved. 5. Hypokalemia, present on admission. Resolved. 6. Right invasive breast cancer, present on admission. Active. 7. Chronic sinusitis with intermittent sinus headache, present on admission. Stable. Hospital Course: Rebekah Mcdaniel is a 34-year-old female with newly diagnosed ER+, WA+, HER2+, node positive invasive breast cancer who was sent over from infusion clinic due to fever, nausea vomiting and diarrhea of 1 day duration. 1. Severe sepsis, strep pyogenes, present on admission. Resolved. -Patient presented ill with high fever, myalgias, headache, GI symptoms, hypotension, tachycardia, and leukocytosis. Sofa score 2 for CHASE and low platelet. -Early goal-directed therapy met including: IV fluid resuscitation and broad- spectrum IV antibiotics. -Source identified as strep pyogenes. -COVID-19 ruled out uncertain nature of her fever. 2. Strep pyogenes bacteremia, present on admission. Resolving. -Patient had episode of severe sore throat for 1 week after her recent chemotherapy suggestive of strep throat which subsequently resulted in bacteremia and seeded her Port-A-Cath. -Port-A-Cath was removed and catheter tip grew strep pyogenes. -Chest x-ray demonstrated increased lung markings in bilateral hilar region with suggestion of right infrahilar infiltrate/atelectasis. No pleural effusion or pneumothorax. -CT chest without contrast demonstrated bibasilar atelectasis without any evidence of pneumonia. Mild fat stranding of left Port-A-Cath possibly warehouse representative of Port-A-Cath infection. -Blood cultures positive for 4:4 bottles for strep pyogenes. -Echocardiogram without evidence of valvular vegetation. -Continued ceftriaxone 2 g IV daily for 2 weeks to be completed on 07/31/2019. PICC line placed in left arm. 3. Acute kidney injury, present on admission. Resolved. -Initial creatinine 1.3. Baseline creatinine 0.57. -Likely prerenal secondary sepsis and volume depletion. 4. Hypomagnesemia, present on admission. Resolved. -Secondary to GI losses. -Initial magnesium level 1.2. Received magnesium sulfate 2 g IV x1. Magnesium level now normal. 5. Hypokalemia, present on admission. Resolved. -Secondary to GI losses. -Initial potassium level 3.2. Received potassium chloride 40 mEq IV x1. Potassium level now normal. 6. Right invasive breast cancer, present on admission. Active. -Followed by Oncology, Dr. Murdock. -Status post neoadjuvant chemo 07/05/2019, Neulasta 07/06/2019 7. Chronic sinusitis with intermittent sinus headache, present on admission. Stable. -patient complains of intermittent frontal headache with mild nasal congestion. -Outpatient CT brain without contrast demonstrated chronic sinusitis involving the frontal sinuses and the right frontal recess corresponding to bone scan abnormality. -Continued Flonase and antibiotic as above. Exam Vital Signs (past 8 hours): - 07/23/19 06:11 07/23/19 09:00 07/23/19 09:36 Temperature 98.0 F 98.6 F Pulse Rate 89 90 Respiratory Rate 18 16 Blood Pressure 112/70 120/88 Pulse Oximetry 96 98 98 07/23/19 13:08 07/23/19 13:50 Temperature 98.6 F Pulse Rate 99 H Respiratory Rate 17 Blood Pressure 110/67 Pulse Oximetry 98 98 Oxygen Delivery Method Room Air Oxygen Flow Rate 0 Narrative Exam Narrative: General: Young female sitting in bedside chair and in no acute distress, well- developed, well-nourished, appropriately interactive. HEENT: Normocephalic, atraumatic. External ears without defect. Pupils equal, round, and reactive to light. Anicteric sclerae, moist conjunctivae, and no lid lag. Oropharynx free of erythema and cobble stoning with moist mucosa. Neck: Supple with full range of motion. No lymphadenopathy or thyromegaly. Cardiovascular: Regular rhythm, mild tachycardia, without murmurs, rubs, or gallops appreciated. Left chest with previous Port-A-Cath site with dressing in place C/D/I. Pulmonary: Clear to auscultation bilaterally without crackles, wheezes, or rhonchi. Normal respiratory effort with no use of accessory muscles. Abdomen: Soft, bowel sounds present, nontender, nondistended. No hepatosplenomegaly or masses appreciated. Extremities: No clubbing, cyanosis, or edema. Skin: Normal temperature, turgor, and texture; no rash, ulcers, or subcutaneous nodules appreciated. Neurological: Cranial nerves grossly intact. Psychiatric: Normal mood and affect. Alert and oriented to person, place, and time. Objective Labs Result Diagrams: 07/21/19 06:09 07/21/19 06:09 Discharge Plan Discharge Plan Patient Disposition: Home Discharge comment: You are being discharged home. You have strep growing in your blood stream. Your Port-A-Cath was removed and a PICC line was placed. You will need to be on IV antibiotics for 2 weeks total which will be completed on 07/31/2019. Please follow-up with your PCP, Dr. Cosme, in the next 1 week regarding your hospitalization. Please follow-up with your oncologist Dr. Arthur sharma in the next 1-2 weeks regarding continuing treatment for breast cancer. Please avoid contact with anyone ill and practice social isolation at this time. Discharge orders & Medications Prescriptions: New fluticasone propionate 50 mcg/actuation [place],Suspension 1 spray intranasal BID Qty: 15.8 RF: 0 ceftriaxone in dextrose,iso-os 1 gram/50 mL Piggyback 2 gm IV DAILY Qty: 8 RF: 0 Continued acetaminophen [Tylenol] 325 mg capsule 650 mg PO QID PRN (Reason: pain) Qty: 60 RF: 0 Follow up/Referrals: Markus Pinzon MD [Physician] - Riddhi Cosme DO [Primary Care Provider] - Diet/Activity/Treatments Diet: Diet as Tolerated Activity: Activity as tolerated Visit Report/Discharge Packet Instructions: Peripherally Inserted Central Catheter, Ceftriaxone Injection, How to Pack a Wound Discharge Data Primary Care Provider: Riddhi Cosme Discharges patient from system. Discharge Date/Time: 07/23/19 17:47 Quality VTE Deep Vein Thrombosis/Pulmonary Embolism Present on Admission: No
--- NOTE | 2019-07-23 16:36 | PC.NURSE ---
Addendum entered by Dayan Jeffrey R.N. 07/23/19 17:48: IV Ceftriaxone 1 gram infused, PICC site LUE patent, draws back bright red blood and flushes well. Drsg CDI. Line HL'd. Patient wheeled to ER entrance, spouse to drive her home via private car. They deny any questions or concerns prior to DC. Original Note: Evening note: Rebekah's spouse back in room now. DC paperwork & instructions given, pt requested that her spouse change her DC'd PORT drsg after we get home. Supplies given for drsg change. Pt reports [facility] will be at their house at 10 in the morning to set up for IV Ceftriaxone infusions. Pt asked shouldn't I get my 2nd dose before I leave? Patient received Ceftriaxone 1 gram around noon, whereas DC order instructs 2 grams daily. I notified Dr Davis of patient concern, new order to give Ceftriaxone 1 gram now before patient DC's. I notified Rebekah & her spouse.
== END 2019-07-23 17:47 | disposition home or self-care (01) | DRG 872 ==
PROVIDERS: Family Medicine; Internal Medicine; Surgery; Admitting Provider Internal Medicine; PCP Family Medicine; Referring Provider Internal Medicine; Visit Provider Internal Medicine
PROC: 0WP803Z Removal of Infusion Device from Chest Wall, Open Approach (ICD-10-PCS; CPT 36590; principal; 2019-07-19 10:30)
DX: A40.0 Sepsis due to streptococcus, group A (principal); T80.211A Bloodstream infection due to central venous catheter, initial encounter; N17.9 Acute kidney failure, unspecified; C77.3 Secondary and unspecified malignant neoplasm of axilla and upper limb lymph nodes; R65.20 Severe sepsis without septic shock; D69.59 Other secondary thrombocytopenia; C50.911 Malignant neoplasm of unspecified site of right female breast; E86.0 Dehydration; E83.42 Hypomagnesemia; E87.6 Hypokalemia; Z17.0 Estrogen receptor positive status [ER+]; M79.662 Pain in left lower leg; R51 Headache; J32.8 Other chronic sinusitis
CPT/HCPCS: 36415; 36569; 36590; 36591; 71045; 71260; 80048; 80053; 80202; 81001; 83605; 83735; 84145; 85025; 86140; 87040; 87070; 87075; 87077; 87086; 87147; 87150; 87186; 87205; 87502; 87507; 87633; 87635; 93306; 93971; 96361; 96375; 99215; 99232; J0692; J1642; J1650; J1885; J2250; J2405; J2704; J3010; J3480; Q9967

== ENCOUNTER → 2019-09-21 09:02 | Outpatient (CLI) | payer OTHER, SELFPAY ==
[2019-07-18 15:41] VITALS: BMI 31.4
--- NOTE | 2019-09-21 09:20 | DI.ECHO.S_ITS ---
Echocardiogram Report + + :Name: OSMAN ESPINOZA Study Date: 09/21/2019 Height: 64 in : :[facility] Weight: 175 lb : : Gender: Female BSA: 1.8 m2 : :: 1985 Age: 34 yrs BP: 110/78 mmHg: :Reason For Study: TACHYCARDIA, CURRENTLY ON HERCEPTIN : : Performed By: Altagracia Urena : :Referring: HARRY FELIPE : + + Interpretation Summary Strain imaging was attempted; however speckle tracing was unsuccessful due to suboptimal endocardial definition. The left ventricular ejection fraction is normal. There are no obvious focal wall motion abnormalities noted but poor endocardial definition reduces the sensitivity for the detection of such. Diastolic parameters suggest a relaxation abnormality of the left ventricle, consistent with probable normal filling pressures. The right ventricle is normal size. RV systolic function visually is normal. However TAPSE is mildly reduced at 1.4 cm. The right ventricular systolic pressure is estimated to be at least 20 mmHg based on an estimated right atrial pressure of 3 mm Hg. Both atria are normal in size. -Compared to the prior echo, patient is now tachycardic. The TAPSE is slightly reduced but visually the RV function appears normal. Procedure: A two-dimensional transthoracic echocardiogram with color flow and Doppler was performed. The study quality was technically adequate. Comparison is made with the echocardiogram of 07/20/2019. Strain imaging attempted; however endocardial definition in the apical view is suboptimal; therefore, speckle tracing was unsuccessful. The patient was in sinus tachycardia with heart rates between 101-120 bpm during the exam. Left Ventricle: The left ventricle is normal in size. There is normal left ventricular wall thickness. The ejection fraction is estimated to be 60-65%. The left ventricular ejection fraction is normal. There are no obvious focal wall motion abnormalities noted but poor endocardial definition reduces the sensitivity for the detection of such. Diastolic parameters suggest a relaxation abnormality of the left ventricle, consistent with probable normal filling pressures. Right Ventricle: The right ventricle is normal size. RV systolic function visually is normal. However TAPSE is mildly reduced at 1.4 cm. Atria: Both atria are normal in size. Mitral Valve: The mitral valve is normal in structure and function. There is trace mitral regurgitation. Aortic Valve: The aortic valve is normal in structure and function. No aortic regurgitation is present. Tricuspid Valve: The tricuspid valve is normal in structure and function. There is trace tricuspid regurgitation. The right ventricular systolic pressure is estimated to be at least 20 mmHg based on an estimated right atrial pressure of 3 mm Hg. Pulmonic Valve: The pulmonic valve is not well visualized. There is a trace or physiologic amount of pulmonic regurgitation. Great Vessels: The aortic root is normal size. The ascending aorta is normal in size. The IVC is of normal diameter and collapses greater than 50% with a sniff. This suggests a low right atrial pressure of 3 mm Hg. Pericardium/ Pleura There is no pericardial effusion. MMode/2D Measurements & Calculations LVIDd: 4.0 cm LVOT diam: 2.1 cm LVIDs: 2.4 cm Ao root diam: 3.1 cm FS: 39.6 % Aortic Jxn: 2.5 cm EPSS: 0.29 cm asc Aorta Diam: 3.0 cm IVSd: 0.87 cm LVPWd: 0.81 cm LV mason. diameter/BSA (cm/m^2): 2.2 LV sys. diameter/BSA (cm/m^2): 1.3 LA A2 area: 15.9 cm2 RA long axis: 4.6 cm LA A4 area: 11.9 cm2 RA area: 12.7 cm2 LA length (vol): 4.4 cm RA vol: 29.4 ml LA vol: 36.2 ml RA : 15.9 ml/m2 LA vol index: 19.6 ml/m2 IVC diam: 1.3 cm RVD1 (basal): 3.3 cm RVD2 (mid): 2.5 cm TAPSE: 1.4 cm Doppler Measurements & Calculations Ao V2 max: 109.9 cm/sec LVOT Max Benjamin: 88.9 cm/sec Ao V2 mean: 84.5 cm/sec LV V1 max P.2 mmHg Ao max P.8 mmHg LV V1 VTI: 12.9 cm Ao mean P.0 mmHg IRIS(I,D): 2.8 cm2 Ao V2 VTI: 15.4 cm IRSI(V,D): 2.7 cm2 sev ratio: 0.84 IRIS indexed to BSA (cm^2/m^2): 1.5 MV E max benjamin: 48.3 cm/sec TR max benjamin: 203.0 cm/sec MV A max benjamin: 67.2 cm/sec TR max P.5 mmHg MV E/A: 0.72 PA V2 max: 70.1 cm/sec Med Peak E' Benjamin: 8.6 cm/sec PA V2 mean: 50.9 cm/sec E/E' med: 5.6 PA mean P.1 mmHg Lat Peak E' Benjamin: 12.9 cm/sec PA Accel Time: 0.12 sec E/E' lat: 3.7 E/e' average: 4.7 MV dec time: 0.09 sec MV P1/2t: 26.1 msec MV P1/2t max benjamin: 48.8 cm/sec SV(LVOT): 42.7 ml MVA(P1/2t): 8.4 cm2 _ Electronically signed by: Scar Mckinley M.D. on Reading Physician:09/21/2019 07:11 PM
== END ==
PROVIDERS: PCP Family Medicine; Referring Provider Internal Medicine Hematology & Oncology; Visit Provider Internal Medicine Hematology & Oncology
DX: R00.0 Tachycardia, unspecified (principal); C50.911 Malignant neoplasm of unspecified site of right female breast; Z79.899 Other long term (current) drug therapy
CPT/HCPCS: 93306

== ENCOUNTER → 2019-10-22 15:52 | Outpatient (ROUT) | payer OTHER, SELFPAY ==
[2019-07-18 15:41] VITALS: BMI 31.4
[2019-10-22 16:15] LABS: Add Manual Diff / Slide Review NO; Basophils Absolute Auto 0 /uL (0-100); Basophils Percent Auto 0.5 % (0-2); Eosinophils Absolute Auto 0 /uL (0-450); Hematocrit 31.9 % (36-46); Hemoglobin 10.9 g/dL (12.0-16.0); Lymphocytes Absolute Auto 1200 /uL (1100-4500); Lymphocytes Percent Auto 20.3 % (25-40); Mean Corpuscular HGB Conc 34.2 % (30-36); Mean Corpuscular Hemoglobin 31.4 PG (26-34); Mean Corpuscular Volume 91.9 fL (80-100); Monocytes Absolute Auto 500 /uL (0-900); Monocytes Percent Auto 8.9 % (3-14); Neutrophils Absolute Auto 4000 /uL (1500-7000); Neutrophils Percent Auto 70.3 % (50-75); Platelet Count 275 X10^3/uL (150-400); Red Blood Cell Count 3.48 X10^6/uL (4.0-5.2); Red Cell Distribution Width 17.7 % (11.6-14.8); White Blood Cell Count 5.8 X10^3/uL (4.5-11.0)
[2019-10-22 16:23] LABS: Alanine Aminotransferase 50 IU/L (<35); Albumin 3.9 g/dL (3.5-5.0); Albumin Globulin Ratio 1.7 (1.0-2.8); Alkaline Phosphatase 71 U/L (38-126); Aspartate Aminotransferase 34 IU/L (14-36); BUN Creatinine Ratio 18.4 (6-22); Bilirubin Total 0.3 mg/dL (0.2-1.3); Blood Urea Nitrogen 9 mg/dL (7-17); Calcium 9.3 mg/dL (8.4-10.2); Carbon Dioxide 28 mmol/L (22-32); Chloride 107 mmol/L (98-107); Estimated Glomerular Filt Rate > 60.0 mL/min (>60); Globulin 2.3 g/dL (1.7-4.1); Glucose 98 mg/dL (70-100); HEMOLYSIS < 15 (0-50); Magnesium 1.3 mg/dL (1.6-2.3); Potassium 3.3 mmol/L (3.4-5.1); Sodium 140 mmol/L (137-145); Total Protein 6.2 g/dL (6.3-8.2)
== END ==
PROVIDERS: PCP Family Medicine; Visit Provider Radiology Diagnostic Radiology
DX: R11.0 Nausea (principal); C50.919 Malignant neoplasm of unspecified site of unspecified female breast; E86.0 Dehydration
CPT/HCPCS: 80053; 83735; 85025

== ENCOUNTER → 2019-11-20 12:27 | Outpatient (CLI) | payer OTHER, SELFPAY ==
[2019-07-18 15:41] VITALS: BMI 31.4
--- NOTE | 2019-11-20 12:29 | DI.MRI.S_ITS ---
BREAST MRI OF BOTH BREASTS: 11/20/2019 CLINICAL: Post chemo eval, Breast cancer. TECHNIQUE: The patient was placed prone in a dedicated breast imaging coil. Precontrast axial STIR and 3D FLASH without fat saturation sequences were obtained. Both before and after bolus injection of contrast, sequential 1-minute axial 3D FLASH with fat saturation sequences for 3 time points, with subtraction images and maximum intensity projections (MIP's) generated. Delayed sagittal FLASH images with fat saturation were also obtained. 20 cc of ProHance (Gadoteridol) nonionic contrast was injected. Computer-aided detection, including computer algorithm analysis of MRI image data for lesion detection and characterization, pharmacokinetic analysis, with further physician review for interpretation, was performed. COMPARISON: Comparison is made to exams dated: 06/22/2019 breast MRI, 06/12/2019 mammogram, and 06/12/2019 ultrasound biopsy [facility]. FINDINGS: Image quality: Excellent. There is very mild background parenchymal enhancement. Right breast: There has been near complete interval resolution of the nodular, non masslike enhancement extending throughout the lateral aspect of the right breast from anterior to posterior. A small amount of residual linear non masslike enhancement is present adjacent to the 09:00 o'clock biopsy clip barely visible on the arterial phase. The maximal AP extent of this enhancement is about 3.2 cm. No residual enhancement around 08:00 o'clock biopsy clip in the right breast. There has been resolution of the enhancing foci in the 7 o'clock position of the right breast. Left breast: There is scarring in the subcutaneous tissue of the upper inner left breast, possibly from prior MediPort placement and removal. No suspicious masses or non masslike enhancement in the left breast. Miscellaneous: There has been interval decrease in size of the previously described enlarged right axillary lymph nodes. No internal mammary chain adenopathy. The visible portions of the liver, heart, great vessels, lungs, and anterior chest wall are unremarkable. IMPRESSION: KNOWN BIOPSY PROVEN MALIGNANCY 1. Near-complete resolution of pathologic enhancement in the right breast with a trace amount of residual, linear, non masslike enhancement adjacent to the 09:00 biopsy clip. 2. Interval resolution of right axillary adenopathy. BIRADS six, known malignancy COMMENT: The imaging literature indicates that a negative contrast breast MRI examination has a high sensitivity and a moderate specificity for detecting and excluding invasive carcinomas to a detection threshold of 3-5 mm; nonetheless, appropriate clinical and mammographic follow-up are recommended. MRI is not sensitive for detecting DCIS (ductal carcinoma in situ) and may not detect large invasive neoplasms that show only minimal enhancement such as mucinous carcinoma. If there are suspicious calcifications or clinically worrisome palpable masses, then biopsy should still be considered. Invasive neoplasms can be hidden by co-existent and benign enhancement caused by mastitis, hormone therapy effects, radiation therapy, , and recent biopsy or surgery. False positive examinations can occur in a number of circumstances, including breasts that have recently been subject to invasive procedures and those that contain atypical ductal hyperplasia, hormonally stimulated glandular tissue, fat necrosis, or radial scars. This exam was interpreted at Station ID: [id number]. Electronically Signed By: Waleska dover/:11/20/2019 16:54:38 copy to: HARRY FELIPE copy to: ELIDIA ECKERT D.O., [facility], ph: [phone], fax: [phone] ACR BI-RADS Category 6: Known biopsy proven malignancy [id number]
== END ==
PROVIDERS: PCP Family Medicine; Referring Provider Internal Medicine Hematology & Oncology; Visit Provider Internal Medicine Hematology & Oncology
DX: C50.911 Malignant neoplasm of unspecified site of right female breast (principal)
CPT/HCPCS: 77049; A9579

== ENCOUNTER → 2019-12-08 14:40 | Outpatient (CLI) | payer OTHER, SELFPAY ==
[2019-11-22 12:38] VITALS: BMI 31.4
[2019-12-09 16:48] LABS: COVID19 Sendout Not Detected (Not Detect)
== END ==
PROVIDERS: PCP Family Medicine; Visit Provider Physician Assistant
DX: Z11.59 Encounter for screening for other viral diseases (principal)
CPT/HCPCS: 87635

== ENCOUNTER 2019-12-11 08:27 | Day surgery (SDC) | payer OTHER, SELFPAY ==
[2019-11-22 12:38] VITALS: BMI 31.4
[2019-12-07 08:12] VITALS: BMI 29.4
[2019-12-11] VITALS (11 sets, daily range): BP systolic 102–131; BP diastolic 67–94; PULSE 84–95; RESP 12–22; TEMP 36–36.7; O2SAT 16–100; BMI 29.4
--- NOTE | 2019-12-11 | DI.MG.S_ITS ---
MULTIPLE WIRE LOCALIZATION RIGHT BREAST- POST-NEEDLE BIOPSY: 12/11/2019 CLINICAL: Right breast cancer. Correlation is made to exams dated: 11/20/2019 breast MRI, 06/22/2019 breast MRI, and 06/12/2019 mammogram - [facility]. A wire localization was performed for the marker clip located in the right breast at 9 o'clock anterior depth. The skin was prepped in the usual manner. A Kopeans was inserted into the targeted area. A wire localization was performed for the marker clip located in the right breast at 9 o'clock middle depth. The skin was prepped in the usual manner. Two Kopeans were inserted into the targeted area. IMPRESSION: WIRE LOCALIZATION Wire localization for the marker clip in the right breast at 9 o'clock anterior depth with placement of one wire was successful. Wire localization for the marker clip in the right breast at 9 o'clock middle depth with placement of one wire was successful. This exam was interpreted at Station ID: [id number]. Zenobia Naik M.D. [facility][note 3]/:12/11/2019 09:44:06 copy to: HARRY FELIPE copy to: ELIDIA ECKERT D.O., [facility], ph: [phone], fax: [phone]
--- NOTE | 2019-12-11 | PATH_ITS ---
[facility] Accession Number: [id number] . 01 Material submitted: . PART A: breast - RIGHT BREAST PART B: axillary tail of breast - RIGHT AXILLARY DISSECTION PART C: breast - SUPERIOR MARGIN RIGHT BREAST PART D: breast - LATERAL MARGIN RIGHT BREAST PART E: breast - INFERIOR MARGIN RIGHT BREAST PART F: breast - MEDIAL MARGIN RIGHT BREAST . 01 Clinical history: . RIGHT BREAST CANCER . 02 Diagnosis: A. Right Breast, Needle Guided Lumpectomy: . Residual invasive carcinoma of the breast with the following features: . Procedure: Needle localized excision. Specimen laterality: Right. Tumor site: Lower outer quadrant (anterior breast at 8 and 9 o'clock). Tumor size: Present as widely dispersed foci that measure 2mm-20mm in slices 2-8 (of 11), a region of approximately 4.0 cm. Greatest dimension of largest focus: 20 mm in slice 3 (block A4). Based on the gross description and imaging studies, the largest focus appears to be at 9:00, associated with the bar clip. The 8:00 location (coil clip) in slice 5 has 2 small associated foci of invasive tumor (4 mm and 3 mm) and DCIS. . Histologic type: Invasive carcinoma of no special type (ductal). Histologic grade: Grade 2 (7 of 9). Nuclear pleomorphism: Score 3. Mitotic rate: Score 1. Nuclear pleomorphism: Score 3. Overall grade: Grade 2 of 3 (7 of 9); intermediate. Ductal carcinoma in situ: Present. Size of DCIS: Widely dispersed foci 1-4 mm. Architectural pattern: Micropapillary, clinging, solid, and cribriform. Nuclear grade: Variable, grade 1-3 (low to high grade). Necrosis: Not identified. Lobular carcinoma in situ: Not identified. . Invasive margins: Uninvolved by invasive carcinoma. Distance from closest margin: 6 mm anterior Anterior: 6 mm Posterior: greater than 10 mm Superior: greater than 10 mm (see part C below) Inferior: greater than 10 mm Medial: greater than 10 mm Lateral: greater than 10 mm . DCIS margins: Distance from closest margin: 1 mm superior Anterior: 5 mm Posterior: greater than 10 mm Superior: 1 mm from black inked margin, part C Inferior: greater than 10 mm Medial: greater than 10 mm Lateral: greater than 10 mm . Regional lymph nodes: Total number of lymph nodes examined: 12. Number of sentinel nodes examined: 0. Number of lymph nodes with macrometastasis: 2. Number of lymph nodes with micrometastasis: 0. Number of lymph nodes with isolated tumor cells: Not applicable. Size of largest metastatic deposit: 5 mm. External extension: Present, 3 mm. Two tumor deposits (1mm and 0.5 mm). . Treatment effect in breast: Probable or definite response to presurgical therapy in the invasive carcinoma (fibrosis). Treatment effect in lymph nodes: Probable or definite response to presurgical therapy in metastatic carcinoma (fibrosis and patchy macrophages). Lymphovascular invasion: Not identified. . Pathologic stage classification (pTNM, AJCC 8th Edition): ypT1c(approximately 8) ypN1a . Breast marker testing: Please see microscopic description. Microcalcifications: Present in DCIS and in nonneoplastic tissue. . B. Right Axillary Dissection: 2/12 lymph nodes positive for metastatic carcinoma; see part A, above . C. Superior Margin, Right Breast Lumpectomy: DCIS present 1 mm from both blue-inked and black-inked margins; see part A, above . D Lateral Margin, Right Breast Lumpectomy: Negative for atypia or malignancy. . E. Inferior Margin, Right Breast Lumpectomy: Negative for atypia or malignancy. . F. Medial Margin, Right Breast Lumpectomy: Negative for atypia or malignancy. [facility] 12/17/2019 1546 Local . 02 Comment: As part of routine senior software quality engineer, this case was also reviewed by Dr. Dr. Beckett, who agrees with the interpretation. . No response at Answering Service 3:12 p.m. on 12-14-19 to discuss results. . 02 Electronically signed: . Ellen Parra MD, Pathologist NPI- [id number] . 01 Gross description: . A. Received in formalin, labeled with the patient's name, MRN and right breast needle-guided lumpectomy, short stitch superior, long stitch lateral, is a 37 gram, 6.2 cm from lateral to medial, 5.0 cm from anterior to posterior, and 2.5 cm from superior to inferior needle localized lumpectomy specimen. There are two needle localization wires, one inserting anteriorly and the other inserting laterally. The specimen is inked as follows: posterior=black; anterior=purple; superior=blue; inferior=green; medial=yellow; lateral=orange. The specimen is serially sectioned from lateral to medial into 11 total slices. There is a bar clip in slice 3 and an irregular metallic clip in slice 4. In slices 3 and 4 is a 1.0 x 0.8 x 0.8 cm, sauceda-white ill-defined mass. The mass is 1.0 cm from the superior margin, 0.7 cm from the inferior margin, 0.9 cm from the anterior margin, 2.6 cm from the posterior margin, 1.4 cm from the lateral margin, and 3.7 cm from the medial margin. The remainder of the cut surface is yellow-sauceda and lobulated with 10% white-sauceda fibrotic tissue. The specimen is collected on 12/11/2019. No formalin fixation time is given. Design Project Manager sections are submitted as follows: . A1: chemical sales representative sections of slice 1, lateral margin. A2: chemical sales representative section from slice 2, tissue directly adjacent to mass. A3-A4: full-thickness section of slice 3 (A4 with bar-shaped clip and mass). A5-A6: entire slice 4, bisected (A6 with mass). A7-A8: slice 5, bisected (A8 section with irregular clip). A9-A10: slice 6, bisected. A11: chemical sales representative section from slice 8. A12: chemical sales representative section from slice 10. A13: chemical sales representative perpendicular sections of slice 11, medial margin. . B. Received in formalin, labeled with the patient's name, MRN and right axillary dissection, is a 6.4 x 5.2 x 3.0 cm yellow-sauceda lobulated portion of fibroadipose tissue. The specimen is palpated to reveal multiple possible lymph nodes ranging in size from 0.3 cm to 1.8 cm in greatest dimension. The entire specimen is submitted as follows: . B1-B2: one possible lymph node each, bisected in each cassette. B3: multiple possible lymph nodes. B4-B11: remainder of fibroadipose tissue with possible lymph nodes. . C. Received in formalin, labeled with the patient's name, MRN and superior margin right breast lumpectomy, is a 2.0 x 2.0 x 1.4 cm yellow-sauceda lobulated portion of fibroadipose tissue. There is one cauterized aspect and the opposing aspect is pink-sauceda and smooth. The cauterized aspect is inked black and the remainder of the specimen is inked blue. The specimen is serially sectioned to reveal a yellow-sauceda lobulated cut surface. No gross abnormalities are identified. The entire specimen is submitted in cassettes C1-C2. . D. Received in formalin, labeled with the patient's name, MRN and lateral margin right breast lumpectomy, is a 2.5 x 2.7 x 0.7 cm yellow-sauceda lobulated portion of fibroadipose tissue. There is one cauterized aspect and the opposing aspect is pink-sauceda and smooth. The cauterized aspect is inked black and the remainder of the specimen is inked blue. The specimen is serially sectioned to reveal a yellow-sauceda lobulated cut surface. No gross abnormalities are identified. The entire specimen is submitted in cassettes D1-D2. . E. Received in formalin, labeled with the patient's name, MRN and inferior margin right breast lumpectomy, is a 2.5 x 2.0 x 0.8 cm yellow-sauceda lobulated portion of fibroadipose tissue. There is one cauterized aspect and the opposing aspect is pink-sauceda and smooth. The cauterized aspect is inked black and the remainder of the specimen is inked blue. The specimen is serially sectioned to reveal a yellow-sauceda lobulated cut surface. No gross abnormalities are identified. The entire specimen is submitted in cassettes E1-E2. . F. Received in formalin, labeled with the patient's name, MRN and medial margin right breast lumpectomy, is a 2.6 x 1.5 x 1.0 cm yellow-sauceda lobulated portion of fibrodipose tissue with purple ink at one aspect. The purple-inked aspect is inked black and the remainder of the specimen is inked blue. The specimen is serially sectioned to reveal a yellow-sauceda lobulated cut surface. No discrete lesions are identified. The entire specimen is submitted in cassettes F1-F2. ([place]/[facility] [id number]) /MRV 12/14/2019 1857 Local . 02 Microscopic: . Immunohistochemistry studies were performed to evaluate the cells of interest. The control stains showed appropriate reactivity. . RESULTS: Blocks: A2, A4, A5, A7, A8, A9, A10, A11: P63: Absent in regions of interest. SMMS-1: Absent in regions of interest. . The absence of p63 and myosin in regions of interest supports the presence of invasive carcinoma at these foci. . . Blocks A2, A3, A4, A6, A7, A8, A9, A10, A11: CK5/6: Absent in regions of interest. ER: Variable in regions of interest. . 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 . Blocks B1, B2, B6 and B7: JOHNATHAN: Positive in two lymph nodes (B1 and B3) with tumor nodules present in B6. . Block C1: ER: Variable in regions of interest. CK5/6: Absent in regions of interest. E-cadherin: Positive in region of interest. . 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 . The expression of e-cadherin supports the presence of ductal carcinoma in situ and mitigates against the presence of lobular carcinoma in situ. . Block D2: P63: Positive in region of interest. SMMS-1: Positive in region of interest. . The presence of both p63 and myosin in the region of interest mitigates against the presence of invasive tumor at this focus. . CAP BREAST BIOMARKER REPORTING TEMPLATE: . Estrogen Receptor (ER) Status: Positive, approximately 50% of tumor nuclei, weak staining intensity. Primary antibody: SP1 Progesterone Receptor (PgR) Status: Positive, approximately 1% of tumor nuclei, weak to moderate staining intensity. Primary antibody: 1E2 HER2 (by immunohistochemistry): Equivocal at 2+. FISH studies pending; results will be reported as an addendum. Primary antibody: 4B5 . Cold Ischemia and Fixation Times: Meets requirements in the latest version of the ASCO/CAP guidelines. Testing performed on Block Number: . TECHNICAL NOTE: The scoring criteria for breast biomarkers by immunohistochemistry is based on the current ASCO/CAP guidelines (Kirt et al, Arch Pathol Lab Med 2010: 134(6): 907-922 / Steph Turner, Arch Pathol Lab Med 2014: 138(2):241-256). Deparaffinized sections of formalin fixed tissue (along with appropriate positive controls) are incubated with the above antibody(s). Using the automated [employer] stainer, tissue is incubated with the designated antibody* which is then localized by a non-biotin, dual polymer detection system. The external controls are reviewed for appropriate reactivity and found to be adequate. Results on the target cell population are indicated above. These tests have not been validated on decalcified tissue. * This test was developed and its performance characteristics determined by [employer]. It has not been cleared or approved by the U.S. Food and Drug Administration. The FDA has determined that such clearance or approval is not necessary. This test is used for clinical purposes. It should not be regarded as investigational or for research. . 02 Pathologist provided ICD-10: C50.911, L51.2 . 02 CPT . 180352, E37917, 894091, 239099, 786149, 568599, 319777, V63149, 864598, 905340, 093566 Performed at: 01 [facility] [address] [place] [id number] MD Howard Mireles MD Phone: [phone] Performed at: 02 [facility] [address] [place] [id number] MD Ximena Beckett MD Phone: [phone]
--- NOTE | 2019-12-11 | DI.MG.S_ITS ---
SPECIMEN RIGHT BREAST: 12/11/2019 CLINICAL: Right breast specimen. Correlation is made to exams dated: 12/11/2019 localization, 06/12/2019 ultrasound biopsy, 05/31/2019 ultrasound, and 05/31/2019 mammogram [facility]. A surgical specimen was imaged for the previous biopsy site located in the right breast at 9 o'clock. IMPRESSION: SPECIMEN The imaged specimen includes the calcification, biopsy clips, and the distal portion of the localization wires. This exam was interpreted at Station ID: [id number]. Steven naranjo/eliud:12/11/2019 12:37:32 copy to: HARRY FELIPE copy to: ELIDIA ECKERT D.O., [facility], ph: [phone], fax: [phone]
[2019-12-11] MEDS: LACTATED RINGERS 1,000 ML 42 ML IV (09:32)
--- NOTE | 2019-12-11 10:52 | PM.PREOP ---
Pre-operative Note COVID-19 COVID-19 status: Negative Interval Note History & Physical reviewed/Exam performed by Physician: Yes Changes to H&P: No
--- NOTE | 2019-12-11 11:00 | SUR.OPER ---
Supine on padded OR bed, head on pillow, arms secured on padded arm boards at <90 degrees abduction, legs uncrossed, safety belt at thigh, tape over blanket over lower legs.
[2019-12-11] MEDS: CEFAZOLIN 2 GM/100 ML FROZ.PIGGY IV (11:14)
[2019-12-11] MEDS: BUPIVACAINE 0.25% (PF) VIAL 30 ML INJ (11:45)
[2019-12-11] MEDS: ACETAMINOPHEN 325 MG TABLET PO (13:55)
[2019-12-11] MEDS: OXYCODONE IR 5 MG TABLET PO (13:59)
--- NOTE | 2019-12-11 15:12 | P.OP_ITS ---
Operative Date/Time/Diagnoses Date of procedure: 12/11/19 Time of procedure: 15:12 Pre-op diagnosis: Right breast cancer Post-op diagnosis: same Procedure & Clinicians Procedure: Right needle-guided lumpectomy axillary lymph node dissection Same procedure as scheduled: Yes Indications: 34-year-old woman with locally advanced right breast cancer, with a biopsy-proven positive axillary lymph nodes he has undergone neoadjuvant therapy. Surgeon: Markus Pinzon Anesthesia Type: General Operative Notes Findings: Guidewire and clips are within the specimen Specimen(s): other (Lumpectomy. Superior, inferior, medial, lateral lumpectomy margins. Axillary dissection) Estimated Blood Loss (mL): 30 Procedure in detail: The patient underwent needle localized prior to the operation. They were brought to the operating room and placed supine on the table. Bilateral lower extremity compression devices were applied. They were i ntubated with an LMA. There were prepped and draped in sterile fashion. Time- out was performed to ensure the correct patient procedure necessary equipment within the operating room. A linear incision on the lateral aspect of the right breast was made and subcutaneous tissues were divided. The localizing wires were identified and then brought back within the incision. The wires were within non descript piece of breast tissue. there was no clear mass here as I think she had an excellent response to the neoadjuvant therapy and there was little to no remaining breast cancer. A generous amount of breast tissue containing the wires and clips was excised. Specimen was marked short stitch superior long stitch lateral. Imaging demonstrated that the specimen contained the wire and the associated clip. I took additional lumpectomy margins including superior, inferior, medial and lateral. Subcutaneous tissues were reapproximated with 3 0 Vicryl sutures skin closed with Monocryl followed by application of Dermabond and Steri-Strips. 0.25% bupivacaine was infiltrated into the skin. Proceeded with the axillary node dissection. A incision just below the hair- bearing area of the axilla was made. The subcutaneous tissues were divided down to the level of the chest wall. The subcutaneous tissues were carefully dissected. The axillary vein was exposed superiorly, the latissmus laterally, and the medial pectoralis medially. The fatty tissue within the axillia was skeletonized off the chest wall careful to avoid any neurovascular structures. The long thoracic nerve was identified running directly along the chest wall and was protected out of harms way. The fatty tissue was excised with the ligature. There was no obvious lymphadenopathy. Hemostasis was achieved the subcutaneous tissues were reapproximater with vircyl the skin closed with monocryl. Complications: none Post-operative Condition: stable Disposition: same day surgery
== END 2019-12-11 14:47 | disposition home or self-care (01) ==
PROVIDERS: PCP Family Medicine; Referring Provider Family Medicine; Visit Provider Surgery
PROC: (CPT 19302; principal; 2019-12-11 10:45)
DX: C50.911 Malignant neoplasm of unspecified site of right female breast (principal)
CPT/HCPCS: 19302; 19281; 76098; J0690; J1100; J2250; J2405; J2704; J3010

== ENCOUNTER → 2019-12-22 16:22 | Outpatient (CLI) | payer OTHER, SELFPAY ==
[2019-11-22 12:38] VITALS: BMI 31.4
[2019-12-23 23:18] LABS: COVID19 Sendout Not Detected (Not Detect)
== END ==
PROVIDERS: PCP Family Medicine; Visit Provider Nurse Practitioner
DX: Z11.59 Encounter for screening for other viral diseases (principal)
CPT/HCPCS: 87635

== ENCOUNTER 2019-12-25 14:28 | Day surgery (SDC) | payer OTHER, SELFPAY ==
[2019-11-22 12:38] VITALS: BMI 31.4
[2019-12-19 14:39] VITALS: BMI 29.4
[2019-12-25] VITALS (12 sets, daily range): BP systolic 109–153; BP diastolic 76–102; PULSE 77–98; RESP 10–20; TEMP 36.2–36.6; O2SAT 95–100; BMI 29.2
--- NOTE | 2019-12-25 | PATH_ITS ---
[facility] Accession Number: [id number] . 01 Material submitted: . PART A: breast - RIGHT BREAST PART B: breast - RIGHT BREAST SUPERIOR MARGIN . 01 Clinical history: . RIGHT BREAST MASTECTOMY . 02 Diagnosis: A. Right Breast, Mastectomy: . Residual invasive carcinoma with the following features: . Procedure: Total mastectomy (status post needle guided right lumpectomy, 12/12/19) Specimen laterality: Right. Tumor site: Lower outer quadrant and upper outer quadrant, superior aspect of prior lumpectomy site. Size: Two foci, largest measures 2 mm. Histologic type: Invasive carcinoma of no special type (ductal). Histologic grade: Grade 2 (intermediate) Tubules: 3 of 3 Nuclei: 3 of 3 Mitotic activity: 1 of 3 Overall grade: 7 of 9 Carcinoma in-situ: Present. Size of DCIS: Multiple foci, each less than 1 mm in greatest dimension, present at the superior aspect of the prior lumpectomy cavity. Histologic type: Ductal carcinoma in situ. Nuclear grade: Grade 3 (high). Architectural pattern: Micropapillary, clinging, and cribriform. Necrosis: Not identified. . Tumor extension: Skin: Present and uninvolved. Nipple: Present and uninvolved. Skeletal muscle: Indeterminate for the presence of skeletal muscle due to obscuring electrocautery artifact. . Invasive carcinoma margins: Uninvolved by invasive carcinoma. Distance from nearest margin: Greater than 10 mm. (Superior margin submitted separately as Part B). . DCIS Margins: Uninvolved by DCIS. Distance from closest margin (anteroinferior, 4 mm). Distance from other margins: Lateral: Greater than 10 mm. Medial: Greater than 10 mm. Superior: 7 mm (please see part B). Posterior: Greater than 10 mm. . Other findings: Changes consistent with previous lumpectomy site upper outer and lower outer quadrants. Regional lymph nodes: No lymph nodes submitted with this specimen. . Pathologic stage classification (pTNM, AJCC 8th Edition): No change to previous pTNM AJCC stage: ypT1c (approximately 8) ypN1a . (from patient's previous pathology report, right breast needle guided lumpectomy, [facility] [id number]; 12/12/2019). . B. Right breast superior margin: . New margin negative for DCIS or invasive tumor. . 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 Three small foci (each less than 1 mm) near the electrocauterized margin of the previous lumpectomy site. The closest focus of DCIS is 7 mm from the new blue-inked excisional margin. Changes consistent with previous instrumentation are present. [facility] 12/31/2019 1519 Local . 02 Electronically signed: . Ellen Parra MD, Pathologist NPI- [id number] . 01 Gross description: . A. Received in formalin, labeled with the patient's name, MRN and right breast, short stitch superior, long stitch lateral, is a 232 gram, 9.7 cm from superior to inferior, 9.0 cm from medial to lateral, 5.7 cm from anterior to posterior simple mastectomy specimen with an attached 8.5 x 7.0 cm sauceda-brown skin ellipse with a central everted 1.6 x 1.6 x 1.2 cm nipple. There is a short suture marking superior and a long suture marking lateral. The anterior superior aspect is inked blue, the anterior inferior aspect is inked green, and the deep margin is inked black. Opened to the lateral posterior aspect at 7 o'clock to 11 o'clock is a 7.0 x 4.4 x 3.3 cm sauceda-white capsule resembling a previous lumpectomy cavity. The capsule is 3.6 cm from the nipple. The capsule is 0.4 cm from the superior margin, 0.6 cm from the inferior margin, 2.6 cm from the anterior skin, grossly abuts the posterior margin, grossly abuts the lateral margin, and is 5.0 cm from the medial margin. The remainder of the breast tissue is yellow-sauceda and lobulated with 20% white-sauceda fibrotic tissue. No discrete lesions are identified. Welt Maker sections are submitted as follows: . A1-A2: entire nipple, serially sectioned. A3: tax compliance representative sections of fibrotic tissue from upper inner quadrant. A4: tax compliance representative sections of fibrotic tissue from lower inner quadrant. . A5: tax compliance representative sections of fibrotic tissue from lower outer quadrant. A6: tax compliance representative sections of fibrotic tissue from upper outer quadrant. A7: tax compliance representative section of tissue directly medial to previous lumpectomy site (with posterior margin). A8: tax compliance representative section of most medial aspect of capsule, closest to posterior margin). A9-A10: tax compliance representative sections of previous lumpectomy cavity in relationship to superior margin. A11-A14: full-thickness section of lumpectomy cavity submitted from superior to inferior (A11 with superior margin closest to cavity, A12-A13 with anterior portion of lumpectomy cavity, A14 with inferior margin). A15: tax compliance representative sections of open area of previous lumpectomy cavity. A16: perpendicular sections of lateral margin with previous lumpectomy cavity and skin. A17-A27: remainder of superior margin in relationship to capsule. The specimen is removed on 12/25/2019. The formalin fixation time cannot be determined since there is not a time placed in formalin on the container or on the requisition. . B. Received in formalin, labeled with the patient's name, MRN and right breast superior margin, is a 9 gram, 4.0 x 3.0 x 1.7 cm yellow-sauceda lobulated portion of fibroadipose tissue. The entire external surface is inked blue. The specimen is serially sectioned to reveal a yellow-sauceda lobulated cut surface, no abnormalities are identified. The entire specimen is submitted in cassettes B1-B9. (SD/cmc10 [id number]) /MRV 12/27/2019 1123 Local . 02 Microscopic: . Immunohistochemical stains were performed to further evaluate the cells of interest in blocks A5 and A12. The control stains showed appropriate reactivity. . RESULTS: CK 5/6: Diminished/absent in foci of interest. ER: Positive in regions of interest. . The absent/decreased expression of CK 5/6 and the strong expression of ER in the atypical foci support a diagnosis of ductal carcinoma in situ. . . Immunohistochemical stains were performed on blocks A21, A25, and A27. The control stains showed appropriate reactivity. . RESULTS: Blocks A21 and A27: p63: Absent in region of interest. SMMS: Absent in region of interest. . The absence of p63 and myosin support a diagnosis of invasive carcinoma at these foci. . Block A25: P63: Present in region of interest. SMMS: Present in region of interest. . The presence of both p63 and myosin in the region of interest mitigates against the presence of invasive carcinoma at this focus. . * This test was developed and its performance characteristics determined by [facility]. It has not been cleared or approved by the U.S. Food and Drug Administration. The FDA has determined that such clearance or approval is not necessary. This test is used for clinical purposes. It should not be regarded as investigational or for research. . 02 Pathologist provided ICD-10: D05.10, C50.911 . 02 CPT . 413788, N00256, S47784, 608175 Performed at: 01 [facility] [address] [address], [place], [place] [id number] MD Howard Mireles MD Phone: [phone] Performed at: 02 [facility] [address] [place] [id number] MD Ximena Beckett MD Phone: [phone]
[2019-12-25] MEDS: LACTATED RINGERS 1,000 ML 100 ML IV (14:42)
[2019-12-25] MEDS: ACETAMINOPHEN 325 MG TABLET 975 MG PO (14:50)
--- NOTE | 2019-12-25 15:52 | PM.PREOP ---
Pre-operative Note COVID-19 COVID-19 status: Negative Interval Note History & Physical reviewed/Exam performed by Physician: Yes Changes to H&P: No
--- NOTE | 2019-12-25 16:02 | PM.HP.1 ---
History of Present Illness History of Present Illness Date Patient Seen: 12/25/19 Time Patient Seen: 16:03 Chief complaint: RIGHT BREAST MASTECTOMY Narrative: Rebekah is a 34-year-old female well known to me with right locally advanced breast cancer. In brief she self identified right breast mass workup demonstrated invasive ductal carcinoma as well as biopsy-proven invasive disease within the axilla. She completed magdi-adjuvant therapy had a good response and underwent a needle-guided lumpectomy with axillary dissection 1 week ago. Pathology demonstrates the invasive carcinoma has been excised with good margins however on the superior aspect of the specimen there was DCIS identified with only a 1 mm margin. I gave the patient the option of re-excision of the superior margin or a right mastectomy. Her preference is to undergo a right mastectomy and she is here for that procedure today. Patient History Medical History Cancer of right breast (Acute) section wound complications (Acute) Diarrhea (Inactive) Hospitalization or health care facility admission within last 6 months (Acute 07/18/19) Hypomagnesemia (Acute) (Inactive) Surgical History History of section (Acute) History of removal of Port-a-Cath (Acute 07/19/19) S/P lumpectomy, right breast (Acute 12/11/19) S/P right breast biopsy (Acute) [place] teeth removed (Acute) Family & Social History Family History Grandmother Pancreatic cancer Diabetes mellitus Breast cancer Cancer Father Heart disease Unknown Stomach cancer Colon cancer Social History: household members spouse,children Tobacco & Substance use: Smoking Status Never smoker alcohol intake never Substance Use Type does not use Meds Home Medications and Allergies Home Medications Medication Instructions Recorded Confirmed Type acetaminophen [Tylenol] 650 mg PO QID PRN #60 cap 06/20/19 12/25/19 Rx fluticasone propionate 1 spray INTRANASAL BID #15.8 ml 07/23/19 12/25/19 Rx dexamethasone [Decadron] 8 mg PO BID #12 tab 09/13/19 12/25/19 Rx gabapentin 100 mg PO TID #90 cap 10/25/19 12/25/19 Rx oxycodone 5 mg PO Q6H PRN #30 tab 12/11/19 12/25/19 Rx lorazepam [Ativan] 0.5 mg PO BEDTIME PRN 12/19/19 12/25/19 History Allergies Allergy/AdvReac Type Severity Reaction Status Date / Time shrimp Allergy Severe SOA Verified 12/25/19 13:54 iodine AdvReac PT STATES Verified 12/25/19 13:54 strawberry AdvReac Hives Verified 12/25/19 13:54 Review of Systems Review of Systems Narrative: A 10 point review of systems is negative except as noted in the HPI Exam Vital Signs (past 8 hours): - 12/25/19 14:55 Temperature 97.7 F Pulse Rate 83 Respiratory Rate 20 Blood Pressure 121/81 Pulse Oximetry 100 Oxygen Delivery Method Room Air Narrative Exam Narrative: General-no acute distress, well nourished HEENT-moist mucous membranes, no scleral icterus Neck-supple, no lymphadenopathy Chest- non labored respirations, clear to auscultation bilaterally Cardiac-regular rate no peripheral edema Abdomen-soft, nontender, non distended Extremities-warm, well perfused Neurological-alert and oriented, no focal deficits Assessment & Plan Assessment and plan (1) Cancer of right breast: Problem details: Metastatic disease to axilla Status: Acute Assessment & Plan narrative: 34-year-old female with locally advanced invasive ductal carcinoma sp lumpectomy and axillary dissection 1 week ago with DCIS at the superior aspect with 1 mm negative margin. Given the option of re excicision of margin or mastectomy her preference is for a right mastectomy. We discussed technical nature of the procedure and the operative risks including bleeding infection neuropathy seroma formation. Questions have been answered she is in agreement with this plan will proceed to the operating room. COVID-19 COVID-19 status: Negative
[2019-12-25] MEDS: CEFAZOLIN 2 GM/100 ML FROZ.PIGGY IV (16:11)
--- NOTE | 2019-12-25 16:37 | SUR.OPER ---
Supine on padded OR bed, head on pillow, arms secured on padded arm boards at <90 degrees abduction, legs uncrossed, safety belt at thigh, tape over blanket over lower legs.
--- NOTE | 2019-12-25 16:39 | SUR.OPER ---
19fr round flor drain
[2019-12-25] MEDS: BUPIVACAINE 0.25% (PF) VIAL 30 ML INJ (16:43)
--- NOTE | 2019-12-25 17:58 | P.OP_ITS ---
Operative Date/Time/Diagnoses Date of procedure: 12/25/19 Time of procedure: 17:58 Pre-op diagnosis: Right breast cancer Post-op diagnosis: same Procedure & Clinicians Procedure: Simple mastectomy Same procedure as scheduled: Yes Indications: 34-year-old female with locally advanced right breast cancer who underwent neoadjuvant therapy followed by lumpectomy and axillary dissection. Her pathology demonstrates that the invasive tumor was resected with negative margins however DCIS was incidentally found on the superior aspect of the spec imen with a 1 mm margin. She presents today for right mastectomy. Surgeon: Markus Pinzon Anesthesia Type: General Operative Notes Findings: Right breast tissue removed in its entirety labeled short stitch superior and long stitch lateral Specimen(s): other (Right breast) Estimated Blood Loss (mL): 50 Procedure in detail: Patient was brought to the operating room placed supine on the table. Bilateral lower extremity compression devices were applied. She received 2 g of Ancef prior to skin incision. She was intubated with an endotracheal tube. She was then prepped and draped in sterile fashion. Time- out was performed. An elliptical incision around the right nipple areola complex was made with the knife. The subcutaneous tissue was divided with electrocautery. Skin flaps were raised to separate the breast tissue from the skin along the subdermal plexus. The dissection was extended superior to the clavicle, medial to the sternum, inferior the the inframamary fold and lateral to the anterior border of the latisimus dorsi. Next the breast tissue was from the underlying pectoralis fascia. The breast was passed off the field marked short stitch superior long stitch lateral. I inspected the flaps and the superior flap was slightly thick so I removed a margin of the superior flap which was passed off the field labeled as superior margin. A 19 Telugu Ang drain was placed into the cavity and secured. The wound was copiously irrigated and homeostasis was ensured. The mastectomy was closed with 3 0 Vicryl for the subcutaneous tissue and the skin was closed with 4 0 Monocryl followed by the application of Dermabond. Patient tolerated procedure well she emerged from anesthesia was extubated and transferred to recovery room in stable condition. Complications: none Post-operative Condition: stable Disposition: same day surgery
[2019-12-25] MEDS: fentaNYL 100 MCG/2 ML INJ IV ×3 (18:07→18:21)
[2019-12-25] MEDS: OXYCODONE IR 5 MG TABLET PO ×2 (18:13→18:46)
--- NOTE | 2019-12-25 18:28 | SUR.PHASEI ---
Medicated for c/o 11/08 pain. Patient appears comfortable.
[2019-12-25] MEDS: METOCLOPRAMIDE 10 MG/2 ML INJ IV (19:14)
[2019-12-25] MEDS: ONDANSETRON 4 MG/2 ML INJ IV (19:14)
== END 2019-12-25 19:18 | disposition home or self-care (01) ==
PROVIDERS: PCP Family Medicine; Referring Provider Family Medicine; Visit Provider Surgery
PROC: 0HTT0ZZ Resection of Right Breast, Open Approach (ICD-10-PCS; CPT 19303; principal; 2019-12-25 15:45)
DX: C50.911 Malignant neoplasm of unspecified site of right female breast (principal); Z17.0 Estrogen receptor positive status [ER+]
CPT/HCPCS: 19303; J0690; J1100; J2250; J2405; J2704; J2765; J3010

== ENCOUNTER → 2020-01-19 10:02 | Outpatient (CLI) | payer OTHER, SELFPAY ==
[2019-11-22 12:38] VITALS: BMI 31.4
[2020-01-20 15:53] LABS: COVID19 Sendout Not Detected (Not Detect)
== END ==
PROVIDERS: PCP Family Medicine; Visit Provider Physician Assistant
DX: Z11.59 Encounter for screening for other viral diseases (principal)
CPT/HCPCS: 87635

== ENCOUNTER 2020-01-22 09:32 | Day surgery (SDC) | payer OTHER, SELFPAY ==
[2019-11-22 12:38] VITALS: BMI 31.4
[2020-01-16 15:17] VITALS: BMI 29.4
[2020-01-22] VITALS (11 sets, daily range): BP systolic 119–130; BP diastolic 73–95; PULSE 74–111; RESP 14–20; TEMP 36.1–36.6; O2SAT 95–100; BMI 29.4
[2020-01-22] MEDS: ACETAMINOPHEN 325 MG TABLET 975 MG PO (10:02)
[2020-01-22] MEDS: SCOPOLAMINE 1 PATCH TOP (10:03)
--- NOTE | 2020-01-22 10:42 | P.HP_ITS ---
History of Present Illness History of Present Illness Date Patient Seen: 01/22/20 Time Patient Seen: 10:42 Chief complaint: PORT-A-CATH PLACEMENT Narrative: 34-year-old female well known to me who has a history right breast cancer locally advanced. She underwent neoadjuvant therapy followed by a lumpectomy and axillary dissection followed by a completion right mastectomy 3 weeks ago. She is here today for Port-A-Cath placement to facilitate her adjuvant chemotherapy. She history of a left subclavian Port-A-Cath which was removed after she developed bacteremia. She is currently feeling well today. Patient History Medical History Cancer of right breast (Acute) section wound complications (Acute) Diarrhea (Inactive) Hospitalization or health care facility admission within last 6 months (Acute 07/18/19) Hypomagnesemia (Acute) (Inactive) Surgical History History of section (Acute) History of removal of Port-a-Cath (Acute 07/19/19) Hx of right mastectomy (Acute 12/25/19) S/P lumpectomy, right breast (Acute 12/11/19) S/P right breast biopsy (Acute) [place] teeth removed (Acute) Family & Social History Family History Grandmother Pancreatic cancer Diabetes mellitus Breast cancer Cancer Father Heart disease Unknown Stomach cancer Colon cancer Social History: household members spouse,children Tobacco & Substance use: Smoking Status Never smoker alcohol intake never Substance Use Type does not use Meds Home Medications and Allergies Home Medications Medication Instructions Recorded Confirmed Type acetaminophen [Tylenol] 650 mg PO QID PRN #60 cap 06/20/19 01/16/20 Rx gabapentin 100 mg PO TID #90 cap 10/25/19 01/16/20 Rx lorazepam [Ativan] 0.5 mg PO BEDTIME PRN 12/19/19 01/16/20 History Allergies Allergy/AdvReac Type Severity Reaction Status Date / Time shrimp Allergy Severe SOA Verified 01/03/20 12:27 iodine AdvReac PT STATES Verified 01/03/20 12:27 strawberry AdvReac Hives Verified 01/03/20 12:27 Review of Systems Review of Systems Narrative: A 10 point review of systems is negative except as noted in the HPI Exam Vital Signs (past 8 hours): - 01/22/20 10:07 Temperature 97.8 F Pulse Rate 89 Respiratory Rate 18 Blood Pressure 120/90 Pulse Oximetry 100 Oxygen Delivery Method Room Air Narrative Exam Narrative: General-no acute distress, well nourished adult female HEENT-moist mucous membranes, no scleral icterus Neck-supple, no lymphadenopathy Chest- non labored respirations, clear to auscultation bilaterally Cardiac-regular rate no peripheral edema Abdomen-soft, nontender, non distended Extremities-warm, well perfused Neurological-alert and oriented, no focal deficits Assessment & Plan Assessment and plan (1) Cancer of right breast: Problem details: Metastatic disease to axilla Status: Acute Assessment & Plan narrative: 34-year-old female with a locally advanced right breast cancer here for a Port-A-Cath placement for adjuvant chemotherapy. We discussed technical nature of the procedure the risks including bleeding infection device failure pneumothorax. Her questions have been answered she is in agreement with this plan will proceed to the operating room.
[2020-01-22] MEDS: LACTATED RINGERS 1,000 ML 42 ML IV (10:45)
--- NOTE | 2020-01-22 10:49 | SUR.OPER ---
Supine on padded OR bed, head on pillow, arms padded and tucked at side, legs uncrossed, safety belt at thigh, tape over blanket over lower legs .
[2020-01-22] MEDS: CEFAZOLIN 2 GM/100 ML FROZ.PIGGY IV (10:56)
[2020-01-22] MEDS: HEPARIN 5,000 UNIT, SODIUM CHLORIDE 0.9% 50 ML IV (11:24)
[2020-01-22] MEDS: BUPIVACAINE 0.25% (PF) VIAL 30 ML INJ (11:25)
--- NOTE | 2020-01-22 11:34 | DI.RAD.S_ITS ---
PROCEDURE: XR CHEST 1V INDICATIONS: PORT A CATH PLACEMENT TECHNIQUE: One view of the chest was acquired. COMPARISON: [facility], CR, XR CHEST FOR PICC 1V, 07/21/2019, 11:31. FINDINGS: Surgical changes and devices: Left port is present with distal tip projecting over the mid SVC. Lungs and pleura: Minimal right basilar opacity is present. Mediastinum: Mediastinal contours appear normal. Heart size is mildly prominent. Bones and chest wall: No suspicious bony lesions. Overlying soft tissues appear unremarkable. IMPRESSION: Left port is above. Minimal right basilar opacity. This could be secondary to patient rotation, atelectasis versus developing pneumonia. Dictated by: Lairssa Payne M.D. on 01/22/2020 at 16:20 Approved by: Larissa Payne M.D. on 01/22/2020 at 16:21
--- NOTE | 2020-01-22 12:12 | PM.OP.1 ---
Operative Date/Time/Diagnoses Date of procedure: 01/22/20 Time of procedure: 12:12 Pre-op diagnosis: breast cancer Post-op diagnosis: same Procedure & Clinicians Procedure: port a cath placement Same procedure as scheduled: Yes Indications: 34 female with locally advanced breast cancer here for port a cath placement Surgeon: Markus Pinzon Anesthesia Type: General Operative Notes Findings: CXR demonstrates no pneumothorax and tip of catheter is within the SVC Specimen(s): none sent Estimated Blood Loss (mL): 20 Procedure in detail: Patient was brought to the operating room placed supine on table. Bilateral lower extremity compressive devices were applied. General anesthesia was induced and she was intubated with an LMA. She was then prepped and draped in usual sterile fashion. Time-out was performed ensure the correct patient procedure necessary equipment within the operating room. She received 2 g of Ancef prior to incision. Under ultrasound guidance the left internal jugular vein was attempted to be accessed under direct visualization however this was not successful. I moved to the left subclavian vein and it was accessed. The guidewire was then threaded through the needle. Its placement was then confirmed using fluoroscopy. The dilator was then placed over the guidewire. The catheter was then inserted through the sheath. Placement was again confirmed with fluoroscopy. A subcutaneous pocket was made in the left chest wall. The port was attached after it was primed with heparined saline. The port was tested to ensure that it flushed easily and had good blood return. The port was then secured to the underlying fascia using interupted Ethibond suture. Hemostasis was achieved. The wound was irrigated with sterile saline. The subcutaneous tissues were reapproximated with the 3 0 Vicryl and then skin closed with 4-0 Monocryl. The skin was sealed with Dermabond. Patient tolerated procedure well. The sponge and instrument count at the end operation was correct. Patient emerged from general anesthesia was extubated and taken to the postoperative care unit in stable condition Complications: none Post-operative Condition: stable Disposition: same day surgery
[2020-01-22] MEDS: OXYCODONE IR 5 MG TABLET PO (12:53)
--- NOTE | 2020-01-22 12:58 | SUR.PHASEII ---
Report to MEREDITH Milton. Pt in stable condidtion and states pain in neck only when moves her shoulders, gave oxy 5mg po with pudding prior to transfer to [facility]
--- NOTE | 2020-01-22 13:03 | SUR.PHASEII ---
PT RESTING QUIETLY, EASILY WAKENS, OPEN SITES CLEAN AND DRY WITH DRESSINGS INTACT. NO C/O PAIN VOICED, TOLERATING SIPS OF WATER AND PUDDING.
== END 2020-01-22 14:00 | disposition home or self-care (01) ==
PROVIDERS: PCP Family Medicine; Referring Provider Surgery; Visit Provider Surgery
PROC: (CPT 36561; principal; 2020-01-22 10:45)
DX: C50.911 Malignant neoplasm of unspecified site of right female breast (principal); Z45.2 Encounter for adjustment and management of vascular access device
CPT/HCPCS: 36561; 71045; 76000; C1788; J0690; J1100; J1644; J2250; J2405; J2704; J3010

== ENCOUNTER → 2020-02-19 11:23 | Outpatient (CLI) | payer OTHER, SELFPAY ==
[2019-11-22 12:38] VITALS: BMI 31.4
--- NOTE | 2020-02-19 11:25 | DI.US.S_ITS ---
PROCEDURE: US ABDOMEN LIMITED INDICATIONS: TRANSAMINITIS, HISTORY OF BREAST CANCER TECHNIQUE: Real-time focused scanning was performed of the abdomen, with image documentation. COMPARISON: [facility], CT, CT CHEST W CON, 07/19/2019, 5:01. FINDINGS: The liver echotexture is diffusely prominently hyperechoic consistent with fatty infiltration. A focal liver lesion is not found. The gallbladder is partially contracted, the patient is not fasting. No biliary distention is seen. No gallstones are identified. IMPRESSION: Fatty infiltration throughout the liver without liver mass lesion or evidence of biliary distension. No gallstones found. Partial contraction of the gallbladder due to nonfasting status, which reduces the ability of the study to detect gallstones if present. Dictated by: Luis Gant M.D. on 02/19/2020 at 12:58 Approved by: Luis Gant M.D. on 02/19/2020 at 13:01
== END ==
PROVIDERS: PCP Family Medicine; Referring Provider Internal Medicine Hematology & Oncology; Visit Provider Internal Medicine Hematology & Oncology
DX: C50.911 Malignant neoplasm of unspecified site of right female breast (principal); R74.01 Elevation of levels of liver transaminase levels; K76.0 Fatty (change of) liver, not elsewhere classified
CPT/HCPCS: 76705

== ENCOUNTER → 2020-05-06 08:01 | Outpatient (CLI) | payer OTHER, SELFPAY ==
[2019-11-22 12:38] VITALS: BMI 31.4
--- NOTE | 2020-05-06 08:01 | DI.ECHO.S_ITS ---
[place] [facility]---------+ [facility] +---------+ : : [address] : : : : [id number] : : : : Phone: [phone]+ Echocardiogram Report + + :Name: OSMAN ESPINOZA Study Date: 05/06/2020 Height: 63 in : :[facility] Weight: 180 lb : : Gender: Female BSA: 1.8 m2 : :: 1985 Age: 34 yrs BP: 137/98 mmHg: :Reason For Study: BREAST CANCER, ON T-DMI TREATMENT : :Ordering Physician: DESTINEE, : :MADIHA Performed By: Sakshi Palacio : :Referring: HARRY FELIPE : + + Interpretation Summary Left ventricular systolic function appears normal with an estimated ejection fraction of 60 to 65% without any focal wall motion abnormalities and appears slightly more dynamic compared to the previous study. Global longitudinal strain average is at the lower end of normal at -19.1%. Diastolic function is likely normal with normal filling pressures. The right ventricle appears normal in size and systolic function and is slightly more dynamic compared to the previous study. Right ventricular systolic pressure is estimated at 23 mmHg with a CVP of 3 mmHg. Both atria are normal in size and unchanged. There is no significant valvular abnormality. Procedure: A two-dimensional transthoracic echocardiogram with color flow and Doppler was performed. The study quality was technically adequate. Comparison is made with the echocardiogram of 09/21/2019. The heart rate ranged between 78-92 bpm during the study. This is slower compared to the previous study. Left Ventricle: The left ventricle is normal in size and wall thickness. Left ventricular systolic function appears normal without focal wall motion abnormalities. The ejection fraction is estimated to be 60-65%. This is slightly more dynamic compared to the previous study. Left ventricular global longitudinal strain average is -19.1%. Diastolic parameters suggest probable normal left ventricular diastolic function and normal filling pressures. Right Ventricle: The right ventricle is normal in size and function. This is slightly more dynamic compared to the previous study. Atria: Both atria are normal in size. This is unchanged compared to the previous study. There is no Doppler evidence for an interatrial shunt. Mitral Valve: The mitral valve is normal in structure and function. There is trace mitral regurgitation. Aortic Valve: The aortic valve is trileaflet. The aortic valve opens well. There is no aortic valve stenosis. No aortic regurgitation is present. Tricuspid Valve: The tricuspid valve is normal in structure and function. There is trace tricuspid regurgitation. The right ventricular systolic pressure is estimated to be at least 23 mmHg based on an estimated right atrial pressure of 3 mm Hg. Pulmonic Valve: The pulmonic valve leaflets are thin and pliable; valve motion is normal. There is trace pulmonic regurgitation. There is no significant valvular heart disease. Great Vessels: The aortic root is normal size. The dimensions of the ascending aorta are normal. The IVC is of normal diameter and collapses greater than 50% with a sniff. This suggests a low right atrial pressure of 3 mm Hg. Pericardium/ Pleura There is no pericardial effusion. There is no pleural effusion. MMode/2D Measurements & Calculations LVIDd: 4.4 cm LVOT diam: 2.1 cm LVIDs: 2.8 cm Ao root diam: 3.1 cm FS: 35.8 % asc Aorta Diam: 2.7 cm EPSS: 0.38 cm Ao Arch Diam (Prox Trans): 3.1 cm IVSd: 0.75 cm LVPWd: 0.92 cm LV mason. diameter/BSA (cm/m^2): 2.4 LV sys. diameter/BSA (cm/m^2): 1.5 LA A2 area: 17.5 cm2 RA long axis: 4.0 cm LA A4 area: 14.3 cm2 RA area: 13.3 cm2 LA length (vol): 4.5 cm RA vol: 38.1 ml LA vol: 47.1 ml RA : 20.6 ml/m2 LA vol index: 25.5 ml/m2 IVC diam: 1.2 cm RVD1 (basal): 3.2 cm TAPSE: 2.3 cm Doppler Measurements & Calculations Ao V2 max: 131.7 cm/sec LVOT Max Benjamin: 84.1 cm/sec Ao V2 mean: 82.8 cm/sec LV V1 max P.8 mmHg Ao max P.9 mmHg LV V1 VTI: 18.4 cm Ao mean P.1 mmHg IRIS(I,D): 3.0 cm2 Ao V2 VTI: 22.2 cm IRIS(V,D): 2.3 cm2 sev ratio: 0.83 IRIS indexed to BSA (cm^2/m^2): 1.6 MV E max benjamin: 53.8 cm/sec TR max benjamin: 222.4 cm/sec MV A max benjamin: 65.7 cm/sec TR max P.8 mmHg MV E/A: 0.82 PA V2 max: 55.0 cm/sec Med Peak E' Benjamin: 6.0 cm/sec PA V2 mean: 42.8 cm/sec E/E' med: 9.0 PA mean P.77 mmHg Lat Peak E' Benjamin: 10.8 cm/sec PA pr(Accel): 29.3 mmHg E/E' lat: 5.0 E/e' average: 7.0 MV dec time: 0.16 sec SV(LVOT): 66.6 ml Reading Physician:12:12 PM
== END ==
PROVIDERS: PCP Family Medicine; Referring Provider Family Medicine; Visit Provider Internal Medicine Hematology & Oncology
DX: C50.911 Malignant neoplasm of unspecified site of right female breast (principal); Z92.21 Personal history of antineoplastic chemotherapy
CPT/HCPCS: 93306

== ENCOUNTER → 2020-06-24 13:48 | Outpatient (CLI) | payer OTHER, SELFPAY ==
[2019-11-22 12:38] VITALS: BMI 31.4
--- NOTE | 2020-06-24 13:53 | DIET.PN ---
Dietary Progress Note Assessment: 34y F referred to nutrition for help with nutrition reccs for breast cancer and treatment. Pt dx c stage 3 breast cancer 1y ago, had chemo and radiation, now on chemo again, is experiencing weight flux between high and low depending on tx status. Currently one medications is causing weight gain, like pre-menopause, has gained 8# since April, also on steroid so has strong appetite. Pts is , has three sons (distance learning with oldest 7y, youngest is 1y, also 4y). Pt having difficulty managing life c young kids during pandemic along c her tx which affects her ability to cook and meal prep. She does have a Meal train T and Th some weeks through husbands work. Usually this is comfort food like mac n cheese and mashed potatoes. Pt has always had an aversion to meat, eats it but doesn't digest it well, pt currently avoiding soy because of her triple positive br ca. Pt is using [employer] for all grocery shopping from [employer] Pt having taste changes: food doesn't have flavor Endorses fatigue and sometimes heartburn and a little nausea BM every other day or every two days, constipated. Was taking metamucil but feels it isn't helping and doesn't like how it tastes. Pt is not going outside, moving around house okay but gets tired, can play 20min c kids, doesn't nap because then won't sleep at night. Usual day: breakfast sandwich (egg, cheese, reyes or sausage, cymro muffin) and coffee c hazelnut creamer sandwich, mac n cheese, chicken, steak, meatloaf, spaghetti (not a huge meat eater) has glass milk before bed sometimes c a few biscuits favorite food right now, cold tomatoes c lemon and salt and pepper, likes cold foods. HT: 5'3 WT: 189 --> 150 --> 190# UBW: 189# Labs: per pt liver enzymes are high and rising Interventions: 1. To support vitality during oncology treatment, encouraged pt to increase intake of colorful fruits and vegetables. Providing smoothie formula handout and encouraged small serving F/V with each meal/snack. 2. To support weight stability and support regular BMs, encouraged pt to consume more soluble fiber in the form of beans, lentils, nuts, seeds, oats, and charo seeds. 3. Provided pt c handout on liver supportive foods. 4. To encourage good nutrition despite fatigue and busy family life, provided links to recipes for egg bites, overnight oats, and sheet mckeon meals, encouraging pt to have kids and get involved in the prep. [facility] pt purchase parchment paper to put on baking sheet to reduce extra dishes. EER: 80g PRO/d, 30g Fiber/d Monitoring/Evaluations: pt will call to schedule f/u
== END ==
PROVIDERS: PCP Family Medicine; Referring Provider Internal Medicine Hematology & Oncology; Visit Provider Internal Medicine Hematology & Oncology
DX: C50.911 Malignant neoplasm of unspecified site of right female breast (principal); E66.9 Obesity, unspecified; Z71.3 Dietary counseling and surveillance; Z68.33 Body mass index [BMI] 33.0-33.9, adult
CPT/HCPCS: 97802

== ENCOUNTER → 2020-07-07 09:44 | Outpatient (CLI) | payer OTHER, SELFPAY ==
[2019-11-22 12:38] VITALS: BMI 31.4
--- NOTE | 2020-07-07 09:45 | DI.US.S_ITS ---
PROCEDURE: US ABDOMEN COMPLETE INDICATIONS: breast cancer, transaminitis TECHNIQUE: Real-time scanning was performed of the abdominal and retroperitoneal organs, with image documentation. COMPARISON: [facility], CT, CT HUY[facility], 02/05/2020, 15:07. FINDINGS: Liver: Diffusely increased hepatic parenchymal echogenicity. The liver is at the upper limits of normal for size, measuring approximately 20 cm in maximum dimension. No focal hepatic mass. Gallbladder: Normally distended gallbladder. No sludge or pericholecystic fluid. Normal gallbladder wall thickness. Biliary ducts: No intrahepatic or extrahepatic biliary ductal dilatation Pancreas: Visualized portions of the pancreas are sonographically normal. Spleen: Normal size of the spleen. There is an approximately 6.6 cm anechoic cyst in the spleen medially, as seen on comparison CT Kidneys: Normal size and appearance of both kidneys. Aorta: Visualized aorta is normal in caliber at less than 3 cm. Iliacs: Proximal common iliac arteries are normal in caliber at less than 2.5 cm. IVC: Intrahepatic inferior vena cava is patent. Miscellaneous: No free abdominal fluid. IMPRESSION: Diffusely increased hepatic parenchymal echogenicity with borderline hepatomegaly. Findings could represent hepatic steatosis or other diffuse hepatocellular process. Dictated by: Leobardo Rawls M.D. on 07/07/2020 at 11:10 Approved by: Leobardo Rawls M.D. on 07/07/2020 at 11:12
== END ==
PROVIDERS: PCP Family Medicine; Referring Provider Internal Medicine Hematology & Oncology; Visit Provider Internal Medicine Hematology & Oncology
DX: C50.911 Malignant neoplasm of unspecified site of right female breast (principal); R74.01 Elevation of levels of liver transaminase levels
CPT/HCPCS: 76700

== ENCOUNTER → 2020-08-07 09:15 | Outpatient (CLI) | payer OTHER, SELFPAY ==
[2019-11-22 12:38] VITALS: BMI 31.4
--- NOTE | 2020-08-07 09:17 | DI.NM.S_ITS ---
PROCEDURE: [place] RADIOPHARMACEUTICAL: 24.2 mCi Tc-99m labeled autologous red cells IV. INDICATIONS: Cardiactoxic chemotherapy, Breast Cancer TECHNIQUE: After intravenous administration of autologous labeled WBC, FAROESE views of the chest were obtained. A region of interest was drawn around the left ventricle to calculate left ventricle ejection fraction. COMPARISON: [facility], [place], [place] [facility], 07/02/2019, 10:29. FINDINGS: The heart and great vessels are of normal size and configuration. The left ventricle contracts normally, with left ventricle ejection fraction of 56.0%. Previously, of EF was 64.2% on 07/02/2019. Normal ejection fractions for this study are above 55%. A drop from baseline ejection fraction of greater than 10 percentage points or to below 45% on follow-up studies may be considered significant. IMPRESSION: The left ventricular ejection fraction is at the lower range of normal (56%). Compared to the last exam, LVEF has declined from 66% to 56%. Dictated by: Magalis Medina M.D. on 08/07/2020 at 11:19 Approved by: Magalis Medina M.D. on 08/07/2020 at 11:22
== END ==
PROVIDERS: PCP Family Medicine; Referring Provider Internal Medicine Hematology & Oncology; Visit Provider Internal Medicine Hematology & Oncology
DX: C50.911 Malignant neoplasm of unspecified site of right female breast (principal)
CPT/HCPCS: 78472; A9512; A9538

== ENCOUNTER → 2020-08-29 10:58 | Outpatient (CLI) | payer OTHER, SELFPAY ==
[2019-11-22 12:38] VITALS: BMI 31.4
--- NOTE | 2020-08-29 10:59 | DI.CT.S_ITS ---
PROCEDURE: CT ABDOMEN PELVIS W CON INDICATIONS: breast cancer, transamnitis TECHNIQUE: After the administration of oral and intravenous contrast, 5 mm thick sections acquired from the diaphragms to the symphysis. 5 mm thick coronal and sagittal reformats were performed. For radiation dose reduction, the following was used: automated exposure control, adjustment of mA and/or kV according to patient size. COMPARISON: Merged With [facility], CT, CT CHEST ABD PEL W CON, 06/22/2019, 10:32. FINDINGS: Image quality: Excellent. ABDOMEN: Lung bases: Lung bases are clear. Heart size is normal. Solid organs: Prominent diffuse hepatic steatosis. This is unchanged. Mild hepatomegaly. No focal liver mass. Gallbladder is unremarkable.. Biliary system is non-dilated. Pancreas enhances normally. Mild splenomegaly.. Interval increase in the size of a splenic cyst, previously measuring 2.9 cm in currently measuring 6.9 cm. No adrenal nodules. Kidneys are normal in size and enhancement, without hydronephrosis. Peritoneum and bowel: Stomach, small bowel, and colon loops are normal in caliber and wall thickness. No free fluid or air. Nodes and vessels: No retroperitoneal or mesenteric adenopathy. Aorta and inferior vena cava are normal in caliber. Miscellaneous: Periumbilical hernia containing fat.. PELVIS: Genitourinary: Bladder wall thickness is normal. Miscellaneous: No inguinal hernias or adenopathy. Bones: No suspicious bony lesions. No vertebral body compression fractures. Bilateral sacroiliitis, as before IMPRESSION: 1. No evidence of metastatic disease in the abdomen and pelvis. 2. Mild hepatomegaly, unchanged prominent hepatic steatosis. 3. Mild splenomegaly. 4. Interval increase in the size of a splenic cyst from 2.9 cm to 6.9 cm. 5. Bilateral sacroiliitis, as before. Dictated by: Alexis Mcgarry M.D. on 08/29/2020 at 12:36 Approved by: Alexis Mcgarry M.D. on 08/29/2020 at 12:41
== END ==
PROVIDERS: PCP Family Medicine; Referring Provider Internal Medicine Hematology & Oncology; Visit Provider Internal Medicine Hematology & Oncology
DX: C50.911 Malignant neoplasm of unspecified site of right female breast (principal); R74.01 Elevation of levels of liver transaminase levels; K76.0 Fatty (change of) liver, not elsewhere classified; R16.2 Hepatomegaly with splenomegaly, not elsewhere classified; D73.4 Cyst of spleen; M46.1 Sacroiliitis, not elsewhere classified
CPT/HCPCS: 74177; Q9967

== ENCOUNTER → 2020-09-19 08:12 | Outpatient (CLI) | payer OTHER, SELFPAY ==
[2019-11-22 12:38] VITALS: BMI 31.4
--- NOTE | 2020-09-19 08:13 | DI.MRI.S_ITS ---
PROCEDURE: MR ABDOMEN WO/W CON INDICATIONS: Abnormal levels of other serum enzymes TECHNIQUE: Coronal HASTE, axial 2D FLASH in- and [id number]; axial breath-hold T2 FSE. Dynamic axial VIBE during the administration of contrast; post-contrast coronal VIBE or 2D FLASH with fat saturation from the hepatic dome to the iliac crests. Optional diffusion weighted imaging and ADC may be performed. COMPARISON: None. FINDINGS: Image quality: Excellent. Lung bases: No basal pleural effusions. Heart size is normal. Solid organs: Liver is normal size and moderate to markedly hypointense on T1 out of phase imaging. No enhancing liver lesions.. Gallbladder appears normal. Biliary system is non dilated. Pancreas is normal in morphology. Spleen contains a thin-walled, homogeneous T2 hyperintense mass measuring 6.3 x 6.0 x 6.8 cm without peripheral or internal enhancement. No adrenal nodules. Both kidneys demonstrate normal size and enhancement, without hydronephrosis. Nodes and vessels: No retroperitoneal or mesenteric adenopathy by size criteria. Aorta and inferior vena cava are normal in size. Bowel and peritoneum: Unenhanced bowel loops are normal in caliber. No free fluid. Bones and soft tissues: No ventral hernias. Bone marrow is normal in overall signal. IMPRESSION: 1. Moderate hepatic steatosis. 2. No enhancing hepatic lesion. 3. 6.8 cm simple splenic cyst. Dictated by: Waleska Escobedo M.D. on 09/19/2020 at 14:34 Approved by: Waleska Escobedo M.D. on 09/19/2020 at 14:38
== END ==
PROVIDERS: PCP Family Medicine; Referring Provider Student in an Organized Health Care Education/Training Program; Visit Provider Student in an Organized Health Care Education/Training Program
DX: R74.8 Abnormal levels of other serum enzymes (principal); K76.0 Fatty (change of) liver, not elsewhere classified; R16.0 Hepatomegaly, not elsewhere classified; D73.4 Cyst of spleen
CPT/HCPCS: 74183; A9579

== ENCOUNTER → 2021-01-09 07:50 | Outpatient (CLI) | payer OTHER, SELFPAY ==
[2019-11-22 12:38] VITALS: BMI 31.4
--- NOTE | 2021-01-09 07:52 | DI.ECHO.S_ITS ---
[facility]---------+ [facility] +---------+ : : [address] : [place] [address] : : : : [id number] : : : : Phone: [phone]---------+ Echocardiogram Report + + :Name: OSMAN ESPINOZA Study Date: 01/09/2021 Height: 63 in : :[facility] ReadingLocation: Weight: 200 lb : : Gender: Female BSA: 1.9 m2 : :: 1985 Age: 35 yrs BP: 127/103 mmHg: :Reason For Study: CANCER : :Ordering Physician: DESTINEE, : :HARRY Performed By: Robert Chicas : :Referring: HARRY FELIPE : + + Interpretation Summary The left ventricle is normal in size and wall thickness. The ejection fraction is estimated to be 55-60%. LV systolic function within normal range. No significant diastolic dysfunction. Previous LV ejection fraction 60 to 65%. In this study strain pattern was not performed. The right ventricle is normal in size and function. No significant valvular pathology seen. The IVC is of normal diameter and collapses greater than 50% with a sniff. This suggests a low right atrial pressure of 3 mm Hg. Procedure: A two-dimensional transthoracic echocardiogram with color flow and Doppler was performed. The study quality was technically adequate. Comparison is made with the echocardiogram of 05/06/2020. The patient was in normal sinus rhythm during the exam. Left Ventricle: The left ventricle is normal in size and wall thickness. There is no thrombus. Left ventricular systolic function is normal. The ejection fraction is estimated to be 55-60%. There are no focal wall motion abnormalities. MV E/A: 1.1 Med Peak E' Benjamin: 7.8 cm/sec E/E' med: 8.7. Right Ventricle: The right ventricle is normal in size and function. Atria: Both atria are normal in size. Both atria have remained unchanged in size since the prior echo exam. There is no Doppler evidence for an interatrial shunt. Mitral Valve: The mitral valve is normal in structure and function. There is trace mitral regurgitation. Aortic Valve: The aortic valve is normal in structure and function. There is no aortic valve stenosis. No aortic regurgitation is present. Tricuspid Valve: The tricuspid valve is normal in structure and function. There is trace tricuspid regurgitation. The right ventricular systolic pressure is estimated to be at least 21 mmHg based on an estimated right atrial pressure of 3 mm Hg. Pulmonic Valve: The pulmonic valve is normal in structure and function. There is trace pulmonic regurgitation. Great Vessels: The aortic root is normal size. The dimensions of the ascending aorta are normal. The IVC is of normal diameter and collapses greater than 50% with a sniff. This suggests a low right atrial pressure of 3 mm Hg. Pericardium/ Pleura There is no pericardial effusion. There is an anterior echo-free space consistent with a fat pad. There is no pleural effusion. MMode/2D Measurements & Calculations LVIDd: 4.8 cm LVOT diam: 2.0 cm LVIDs: 3.1 cm Ao root diam: 2.9 cm FS: 34.3 % asc Aorta Diam: 2.7 cm IVSd: 0.71 cm LVPWd: 0.79 cm LV mason. diameter/BSA (cm/m^2): 2.5 LV sys. diameter/BSA (cm/m^2): 1.6 LA A2 area: 16.4 cm2 RA long axis: 4.4 cm LA A4 area: 16.8 cm2 RA area: 12.2 cm2 LA length (vol): 5.4 cm RA vol: 28.7 ml LA vol: 43.1 ml RA : 14.9 ml/m2 LA vol index: 22.3 ml/m2 TAPSE: 2.2 cm Doppler Measurements & Calculations Ao V2 max: 116.9 cm/sec LVOT Max Benjamin: 84.5 cm/sec Ao V2 mean: 85.0 cm/sec LV V1 max P.9 mmHg Ao max P.5 mmHg LV V1 VTI: 18.1 cm Ao mean P.2 mmHg IRIS(I,D): 2.2 cm2 Ao V2 VTI: 25.1 cm IRIS(V,D): 2.2 cm2 sev ratio: 0.72 IRIS indexed to BSA (cm^2/m^2): 1.1 MV E max benjamin: 67.9 cm/sec TR max benjamin: 215.0 cm/sec MV A max benjamin: 62.4 cm/sec TR max P.5 mmHg MV E/A: 1.1 PA pr(Accel): 43.0 mmHg Med Peak E' Benjamin: 7.8 cm/sec E/E' med: 8.7 Lat Peak E' Benjamin: 13.4 cm/sec E/E' lat: 5.1 E/e' average: 6.9 MV dec time: 0.24 sec SVLVOT): 53.9 ml Reading Physician:05:25 PM
== END ==
PROVIDERS: PCP Family Medicine; Referring Provider Internal Medicine Hematology & Oncology; Visit Provider Internal Medicine Hematology & Oncology
DX: C50.911 Malignant neoplasm of unspecified site of right female breast (principal); Z92.21 Personal history of antineoplastic chemotherapy
CPT/HCPCS: 93306

== ENCOUNTER → 2021-04-22 08:01 | Outpatient (CLI) | payer OTHER, SELFPAY ==
[2019-11-22 12:38] VITALS: BMI 31.4
--- NOTE | 2021-04-22 08:02 | DI.MG.S_ITS ---
UNILATERAL LEFT DIGITAL SCREENING MAMMOGRAM 3D/2D WITH CAD POST MASTECTOMY: 04/22/2021 CLINICAL: Routine screening. Personal history of right breast cancer. Comparison is made to exams dated: 06/22/2019 breast MRI, 11/20/2019 breast MRI, and 05/31/2019 mammogram - [facility]. The tissue of left breast is extremely dense, which lowers the sensitivity of mammography. Current study was also evaluated with a Computer Aided Detection (CAD) system. No significant masses, calcifications, or other findings are seen in the breast. There has been no significant interval change. IMPRESSION: NEGATIVE There is no mammographic evidence of malignancy. A 1 year screening mammogram is recommended. This exam was interpreted at Station ID: [id number]. NOTE: For mammograms, a report in lay terms will be sent to the patient. Approximately 15% of breast malignancies will not be visualized mammographically. In the management of a palpable breast mass, a negative mammogram must not discourage biopsy of a clinically suspicious lesion. Electronically Signed By: Leobardo Rawls M.D., jr/eliud:04/22/2021 12:20:34 copy to: ELIDIA ECKERT D.O., [facility], ph: [phone], fax: [phone] letter sent: Normal Exam ACR BI-RADS Category 1: Negative [id number]
== END ==
PROVIDERS: PCP Family Medicine; Referring Provider Internal Medicine Hematology & Oncology; Visit Provider Internal Medicine Hematology & Oncology
DX: Z12.31 Encounter for screening mammogram for malignant neoplasm of breast (principal); C50.911 Malignant neoplasm of unspecified site of right female breast
CPT/HCPCS: 77063; 77067

== ENCOUNTER → 2021-06-11 08:04 | Outpatient (CLI) | payer OTHER, SELFPAY ==
[2019-11-22 12:38] VITALS: BMI 31.4
--- NOTE | 2021-06-11 08:05 | DI.ECHO.S_ITS ---
[facility] +---------+ [facility] +---------+ : : [address] : : : : [place] : : : : [id number] : : : : Phone: [phone] : : [phone] +---------+ Echocardiogram Report + + :Name: OSMAN ESPINOZA Study Date: 06/11/2021 Height: 63 in : :[facility] ReadingLocation: Weight: 190 lb : : Gender: Female BSA: 1.9 m2 : :: 1985 Age: 35 yrs BP: 121/95 mmHg: :Reason For Study: ON TRASTUZUMAB, BREAST CANCER : :Ordering Physician: DESTINEE, : :HARRY Performed By: Sakshi Palacio : :Referring: HARRY FELIPE : + + Interpretation Summary The left ventricle is normal in size and wall thickness. The ejection fraction is estimated to be 55-60%. No significant change in LVEF from the previous study. Left ventricular global longitudinal strain average is -22.6%. In May 06, 2020, strain -19.1%. The right ventricle is normal in size and function. No significant valvular pathology seen. The IVC is of normal diameter and collapses greater than 50% with a sniff. This suggests a low right atrial pressure of 3 mm Hg. Procedure: A two-dimensional transthoracic echocardiogram with color flow and Doppler was performed. The study quality was technically adequate. Comparison is made with the echocardiogram of 01/09/2021. The patient was in sinus rhythm with heart rates between 63-86 bpm during the exam. Left Ventricle: The left ventricle is normal in size and wall thickness. There is no thrombus. Left ventricular global longitudinal strain average is - 22.6%. The ejection fraction is estimated to be 55-60%. There are no focal wall motion abnormalities. Diastolic parameters suggest probable normal left ventricular diastolic function and normal filling pressures. Right Ventricle: The right ventricle is normal in size and function. Atria: The left atrial size is normal. Both atria have remained unchanged in size since the prior echo exam. Right atrial size is normal. There is no Doppler evidence for an interatrial shunt. Mitral Valve: The mitral valve leaflets are slightly calcified. There is mild mitral regurgitation. Aortic Valve: The aortic valve is trileaflet. The aortic valve opens well. There is no aortic valve stenosis. No aortic regurgitation is present. Tricuspid Valve: The tricuspid valve is normal. There is mild tricuspid regurgitation. Pulmonary artery pressures cannot be estimated because of the lack of a measurable TR jet velocity but the IVC suggests a CVP of around 3 mmHg. Pulmonic Valve: The pulmonic valve leaflets are thin and pliable; valve motion is normal. There is no pulmonic valvular regurgitation. Great Vessels: The aortic root is normal size. The dimensions of the ascending aorta are normal. The IVC is of normal diameter and collapses greater than 50% with a sniff. This suggests a low right atrial pressure of 3 mm Hg. Pericardium/ Pleura There is no pericardial effusion. There is no pleural effusion. MMode/2D Measurements & Calculations LVIDd: 4.3 cm LVOT diam: 2.0 cm LVIDs: 3.0 cm Ao root diam: 3.2 cm FS: 30.7 % asc Aorta Diam: 2.9 cm IVSd: 0.87 cm Ao Arch Diam (Prox Trans): 2.5 cm LVPWd: 0.70 cm LV mason. diameter/BSA (cm/m^2): 2.3 LV sys. diameter/BSA (cm/m^2): 1.6 LA A2 area: 16.3 cm2 RA long axis: 4.8 cm LA A4 area: 15.5 cm2 RA area: 15.3 cm2 LA length (vol): 5.1 cm RA vol: 41.5 ml LA vol: 42.0 ml RA : 22.0 ml/m2 LA vol index: 22.2 ml/m2 IVC diam: 0.83 cm RVD1 (basal): 3.7 cm TAPSE: 2.5 cm Doppler Measurements & Calculations Ao V2 max: 122.4 cm/sec LVOT Max Benjamin: 79.6 cm/sec Ao V2 mean: 85.4 cm/sec LV V1 max P.5 mmHg Ao max P.0 mmHg LV V1 VTI: 17.8 cm Ao mean P.2 mmHg IRIS(I,D): 2.2 cm2 Ao V2 VTI: 25.7 cm IRIS(V,D): 2.1 cm2 sev ratio: 0.69 IRIS indexed to BSA (cm^2/m^2): 1.2 MV E max benjamin: 73.6 cm/sec PA V2 max: 70.3 cm/sec MV A max benjamin: 65.6 cm/sec PA V2 mean: 48.9 cm/sec MV E/A: 1.1 PA mean P.1 mmHg Med Peak E' Benjamin: 8.3 cm/sec PA pr(Accel): 36.2 mmHg E/E' med: 8.9 Lat Peak E' Benjamin: 14.9 cm/sec E/E' lat: 4.9 E/e' average: 6.9 MV dec time: 0.20 sec SV(OT): 56.4 ml Reading Physician:05:13 PM
== END ==
PROVIDERS: PCP Family Medicine; Referring Provider Internal Medicine Hematology & Oncology; Visit Provider Internal Medicine Hematology & Oncology
DX: C50.911 Malignant neoplasm of unspecified site of right female breast (principal); I08.1 Rheumatic disorders of both mitral and tricuspid valves; Z92.21 Personal history of antineoplastic chemotherapy
CPT/HCPCS: 93306

== ENCOUNTER → 2021-10-23 09:39 | Outpatient (CLI) | payer OTHER, SELFPAY ==
[2019-11-22 12:38] VITALS: BMI 31.4
--- NOTE | 2021-10-23 09:40 | DI.MRI.S_ITS ---
PROCEDURE: MR HEAD/BRAIN WO/W CON INDICATIONS: breast cancer, headache TECHNIQUE: Noncontrast axial T1 spin echo, axial T2 fast spin echo, sagittal and axial FLAIR, coronal T2 fast spin echo, axial gradient echo, axial diffusion and ADC through the brain. After the administration of contrast, axial and coronal and sagittal 3D VIBE or T1 spin echo with fat saturation through the brain. COMPARISON: [facility], CT, CT HEAD/BRAIN WO CON, 07/06/2019, 13:51. FINDINGS: Image quality: Excellent. CSF Spaces: Basal cisterns are patent. No extra-axial fluid collections. Ventricles are normal in size and shape. Brain: No midline shift. No intracranial bleeds or masses. No abnormal intracranial enhancement. The brainstem appears normal. Diffusion-weighted images demonstrate no acute ischemic insults. No chronic ischemic insults. Normal intravascular flow voids are present. Skull and face: Calvarial marrow is normal in signal. Orbits appear normal. Sinuses: There is moderate mucosal thickening within the maxillary sinuses, with milder mucosal thickening elsewhere within the paranasal sinuses. No abnormal fluid is seen within the mastoid air cells. IMPRESSION: No masses or abnormal enhancement can be seen. Paranasal sinus disease noted. Dictated by: Dereck Wilkinson M.D. on 10/23/2021 at 9:34 Approved by: Dereck Wilkinson M.D. on 10/23/2021 at 9:36
== END ==
PROVIDERS: PCP Family Medicine; Referring Provider Internal Medicine Hematology & Oncology; Visit Provider Internal Medicine Hematology & Oncology
DX: C50.911 Malignant neoplasm of unspecified site of right female breast (principal); R51.9 Headache, unspecified; J32.8 Other chronic sinusitis
CPT/HCPCS: 70553; A9579

== ENCOUNTER 2021-10-24 04:50 | Emergency (ER) | payer OTHER, SELFPAY ==
[2019-11-22 12:38] VITALS: BMI 31.4
[2021-10-24] VITALS (12 sets, daily range): BP systolic 107–187; BP diastolic 65–87; PULSE 81–119; RESP 16–30; TEMP 37.2; O2SAT 98–100; BMI 35.4
--- NOTE | 2021-10-24 04:58 | ED.SOB ---
HPI - SOB/Dyspnea <Manuel Cunningham DO - Last Filed: 10/25/21 02:20> General Chief Complaint: Shortness of Breath/Dyspnea Stated Complaint: SOB Time Seen by Provider: 10/24/21 04:57 History of Present Illness HPI Narrative: 36-year-old female nonsmoker with history of breast cancer with subsequent mastectomy and radiation and current chemotherapy presents with a relatively sudden onset shortness of breath that started this morning. It is associated with a dry and hacking cough. She denies any sputum production or chest pain. She is not dizzy nor weak or lightheaded. She denies any fever or chills. She has had no nausea, vomiting or diarrhea. She denies any recent travel, history of blood clot or lower extremity pain or swelling. She denies any exposure to persons with COVID, has taken multiple at home tests and is fully immunized and bruised. She states her shortness of breath is rather persistent and seems to be worsened by exertion. Related Data Previous Rx's Medication Instructions Recorded lorazepam 0.5 mg tablet (Ativan) 0.5 mg PO BEDTIME PRN Insomnia #30 05/21/21 tabs lidocaine-prilocaine 2.5 %-2.5 % 1 applic topical PRN PRN Pain At 07/23/21 topical cream Injection Site #30 grams Allergies Allergy/AdvReac Type Severity Reaction Status Date / Time shrimp Allergy Severe SOA Verified 01/31/20 12:03 chlorhexidine Allergy Verified 10/24/21 06:31 iodine AdvReac PT STATES Verified 01/31/20 12:03 strawberry AdvReac Hives Verified 01/31/20 12:03 Review of Systems <Manuel Cunningham DO - Last Filed: 10/25/21 02:20> Review of Systems Narrative: GENERAL: Denies chills, fatigue, malaise, fever, sweats. HEENT: Denies sinus pain, ear pain, sore throat, difficulty swallowing, dizziness. RESPIRATORY: See HPI CARDIOVASCULAR: See HPI GASTROINTESTINAL: Denies nausea, vomiting, abdominal pain, diarrhea, constipation, melena. : Denies dysuria, frequency, incontinence, hematuria, urinary retention. MUSCULOSKELETAL: denies weakness, joint pain, or bony pain SKIN: Denies rash, skin lesions, or other NEUROLOGIC: Denies weakness, headache, numbness, change in speech, confusion, seizures, incoordination. PSYCHIATRIC: No concerning psychosocial issues. 12 point review of systems is negative except for those stated above Patient History <Manuel Cunningham DO - Last Filed: 10/25/21 02:20> Medical History (Updated 10/24/21 @ 09:14 by Ector Hooks DO) Cancer of right breast section wound complications Diarrhea Hospitalization or health care facility admission within last 6 months (07/18/19) Hypomagnesemia Surgical History History of section History of removal of Port-a-Cath (07/19/19) Hx of right mastectomy (12/25/19) S/P lumpectomy, right breast (12/11/19) S/P right breast biopsy [place] teeth removed Family History Grandmother Pancreatic cancer Diabetes mellitus Breast cancer Cancer Father Heart disease Unknown Stomach cancer Colon cancer Social History marital status: number of children: 3 household members: spouse and children Smoking Status: Never smoker alcohol intake: never substance use type: does not use Smoking Status: Never smoker Substance Use Type: does not use Exam <Manuel Cunningham DO - Last Filed: 10/25/21 02:20> Narrative Exam Narrative: GENERAL: [36] year old patient appears stated age. Well-developed patient, in mild distress. HEAD: Atraumatic. Normocephalic. EYES: Pupils equal round and reactive. Extraocular motions intact. No scleral icterus. No injection or drainage. ENT: Nose without bleeding, purulent drainage. Throat without erythema, tonsillar hypertrophy or exudate. Airway patent. NECK: Trachea midline. Non tender CARDIOVASCULAR: Tachycardic but regular rhythm without murmurs, gallops, or rubs. RESPIRATORY: Clear to auscultation. Breath sounds equal bilaterally. No wheezes, rales, or rhonchi. GASTROINTESTINAL: Abdomen soft, non-tender, nondistended. EXTREMITIES: No edema or joint tenderness. BACK: Nontender without deformity or crepitance. No flank tenderness. NEURO: AOx3. SKIN: No rash or erythema of visible areas Initial Vital Signs Initial Vital Signs: Vital Signs Temperature 98.9 F 10/24/21 05:00 Pulse Rate 119 H 10/24/21 05:00 Respiratory Rate 22 10/24/21 05:00 Blood Pressure 187/87 H 10/24/21 05:00 Pulse Oximetry 100 10/24/21 05:00 Oxygen Delivery Method 10/24/21 05:00 <Ector Hooks DO - Last Filed: 10/24/21 09:15> Initial Vital Signs Initial Vital Signs: Vital Signs Temperature 98.9 F 10/24/21 05:00 Pulse Rate 119 H 10/24/21 05:00 Respiratory Rate 22 10/24/21 05:00 Blood Pressure 187/87 H 10/24/21 05:00 Pulse Oximetry 100 10/24/21 05:00 Oxygen Delivery Method 10/24/21 05:00 Course <Manuel Cunningham DO - Last Filed: 10/25/21 02:20> Orders Ordered: Discontinued Medications Sodium Chloride (Normal Saline 0.9%) 1,000 mls @ 1,000 mls/hr IV BOLUS ONE Stop: 10/24/21 06:02 Last Infusion: 10/24/21 06:28 Dose: 0 mls/hr Documented By: Admin: 10/24/21 05:30 Dose: 1,000 mls/hr Documented By: KIRILL Sodium Chloride (Normal Saline 0.9%) 1,000 mls @ 1,000 mls/hr IV BOLUS ONE Stop: 10/24/21 07:05 Last Infusion: 10/24/21 09:27 Dose: 0 mls/hr Documented By: Admin: 10/24/21 06:43 Dose: 1,000 mls/hr Documented By: BIANKA Vital Signs Vital signs: Vital Signs - 8 hr 10/24/21 05:00 10/24/21 05:05 10/24/21 05:30 Temperature 98.9 F Pulse Rate 119 H 110 H 93 H Respiratory Rate 22 24 30 H Blood Pressure 187/87 H Pulse Oximetry 100 98 Oxygen Delivery Method Room Air 10/24/21 06:00 10/24/21 06:30 10/24/21 06:45 Temperature Pulse Rate 87 85 Respiratory Rate 25 H 23 Blood Pressure 126/78 Pulse Oximetry 99 98 Oxygen Delivery Method 10/24/21 06:45 10/24/21 07:00 10/24/21 07:00 Temperature Pulse Rate 90 83 Respiratory Rate 29 H 20 Blood Pressure 118/69 Pulse Oximetry 100 100 Oxygen Delivery Method 10/24/21 07:30 10/24/21 07:30 10/24/21 08:00 Temperature Pulse Rate 81 Respiratory Rate 24 Blood Pressure 107/65 125/72 Pulse Oximetry 100 Oxygen Delivery Method 10/24/21 08:00 10/24/21 08:19 10/24/21 08:19 Temperature Pulse Rate 86 91 H Respiratory Rate 22 24 Blood Pressure 125/83 Pulse Oximetry 99 98 Oxygen Delivery Method <Ector Hooks DO - Last Filed: 10/24/21 09:15> Orders Ordered: Discontinued Medications Sodium Chloride (Normal Saline 0.9%) 1,000 mls @ 1,000 mls/hr IV BOLUS ONE Stop: 10/24/21 06:02 Last Infusion: 10/24/21 06:28 Dose: 0 mls/hr Documented By: Admin: 10/24/21 05:30 Dose: 1,000 mls/hr Documented By: KIRILL Sodium Chloride (Normal Saline 0.9%) 1,000 mls @ 1,000 mls/hr IV BOLUS ONE Stop: 10/24/21 07:05 Last Infusion: 10/24/21 09:27 Dose: 0 mls/hr Documented By: Admin: 10/24/21 06:43 Dose: 1,000 mls/hr Documented By: BIANKA Vital Signs Vital signs: Vital Signs - 8 hr 10/24/21 05:00 10/24/21 05:05 10/24/21 05:30 Temperature 98.9 F Pulse Rate 119 H 110 H 93 H Respiratory Rate 22 24 30 H Blood Pressure 187/87 H Pulse Oximetry 100 98 Oxygen Delivery Method Room Air 10/24/21 06:00 10/24/21 06:30 10/24/21 06:45 Temperature Pulse Rate 87 85 Respiratory Rate 25 H 23 Blood Pressure 126/78 Pulse Oximetry 99 98 Oxygen Delivery Method 10/24/21 06:45 10/24/21 07:00 10/24/21 07:00 Temperature Pulse Rate 90 83 Respiratory Rate 29 H 20 Blood Pressure 118/69 Pulse Oximetry 100 100 Oxygen Delivery Method 10/24/21 07:30 10/24/21 07:30 10/24/21 08:00 Temperature Pulse Rate 81 Respiratory Rate 24 Blood Pressure 107/65 125/72 Pulse Oximetry 100 Oxygen Delivery Method 10/24/21 08:00 10/24/21 08:19 10/24/21 08:19 Temperature Pulse Rate 86 91 H Respiratory Rate 22 24 Blood Pressure 125/83 Pulse Oximetry 99 98 Oxygen Delivery Method MDM - SOB/Dyspnea <Manuel Cunningham, DO - Last Filed: 10/25/21 02:20> Lab Data Result diagrams: 10/24/21 05:15 10/24/21 05:15 Labs: Lab Results 10/24/21 10/24/21 10/24/21 Range/Units 05:15 05:15 05:15 WBC 11.6 H (4.5-11.0) X10^3/uL RBC 4.67 (4.0-5.2) X10^6/uL Hgb 13.4 (12.0-16.0) g/dL Hct 39.3 (36-46) % MCV 84.3 (80-100) fL MCH 28.7 (26-34) PG MCHC 34.0 (30-36) % RDW 13.6 (11.6-14.8) % Plt Count 344 (150-400) X10^3/uL Neut % (Auto) 67.1 (50-75) % Lymph % (Auto) 17.8 L (25-40) % [place] % (Auto) 11.2 (3-14) % Eos % (Auto) 3.6 (2-4) % Baso % (Auto) 0.3 (0-2) % Neut # (Auto) 7800 H (8697-1782) /uL Lymph # (Auto) 2100 (4548-0085) /uL [place] # (Auto) 1300 H (0-900) /uL Eos # (Auto) 400 (0-450) /uL Baso # (Auto) 0 (0-100) /uL D-Dimer 234 H (<230) ng/mL Sodium 137 (137-145) mmol/L Potassium 4.2 (3.4-5.1) mmol/L Chloride 106 (98-107) mmol/L Carbon Dioxide 25 (22-32) mmol/L BUN 10 (7-17) mg/dL Creatinine 0.71 (0.52-1.04) mg/dL Estimated GFR > 60 (>60) mL/min BUN/Creatinine Ratio 14.1 (6-22) Glucose 101 H (70-100) mg/dL Calcium 9.0 (8.4-10.2) mg/dL Magnesium (1.6-2.3) mg/dL Total Bilirubin 0.5 (0.2-1.3) mg/dL AST 31 (14-36) IU/L ALT 49 H (<35) IU/L Alkaline Phosphatase 92 (38-126) U/L Total Creatine Kinase (30-135) U/L CK-MB (CK-2) CK-MB (CK-2) Rel Index Troponin I (0.01-0.034) ng/mL NT-Pro-B Natriuret Pep (<125) pg/mL Total Protein 7.8 (6.3-8.2) g/dL Albumin 4.4 (3.5-5.0) g/dL Globulin 3.4 (1.7-4.1) g/dL Albumin/Globulin Ratio 1.3 (1.0-2.8) Lipase (23-300) U/L Urine RBC (0-5/HPF) Urine WBC (0-5/HPF) Ur Squamous Epith Cells (0-5/HPF) Urine Bacteria (None) Ur Culture Indicated? Chlamy pneumoniae PCR (Not Detect) Adenovirus (PCR) (Not Detect) B. pertussis DNA (PCR) (Not Detecte) B.parapertussis DNA PCR (Not Detecte) Coronavirus OC43 (PCR) (Not Detect) Coronavirus HKU1 (PCR) (Not Detect) Coronavirus 229E (PCR) (Not Detect) SARS-CoV-2 (PCR) (Not Detecte) Coronavirus NL63 (PCR) (Not Detect) Human Metapneumovir PCR (Not Detect) Influenza Type A (PCR) (Not Detect) Influenza Type B (PCR) (Not Detect) M. pneumoniae (PCR) (Not Detect) Parainfluenza 1 (PCR) (Not Detect) Parainfluenza 2 (PCR) (Not Detect) Parainfluenza 3 (PCR) (Not Detect) Parainfluenza 4 (PCR) (Not Detect) RSV (PCR) (Not Detect) Entero/Rhino (PCR) (Not Detect) 06/10/24/21 10/24/21 Range/Units 05:15 06:20 08:11 WBC (4.5-11.0) X10^3/uL RBC (4.0-5.2) X10^6/uL Hgb (12.0-16.0) g/dL Hct (36-46) % MCV (80-100) fL MCH (26-34) PG MCHC (30-36) % RDW (11.6-14.8) % Plt Count (150-400) X10^3/uL Neut % (Auto) (50-75) % Lymph % (Auto) (25-40) % Benton % (Auto) (3-14) % Eos % (Auto) (2-4) % Baso % (Auto) (0-2) % Neut # (Auto) (3601-4454) /uL Lymph # (Auto) (9973-9150) /uL Benton # (Auto) (0-900) /uL Eos # (Auto) (0-450) /uL Baso # (Auto) (0-100) /uL D-Dimer (<230) ng/mL Sodium (137-145) mmol/L Potassium (3.4-5.1) mmol/L Chloride (98-107) mmol/L Carbon Dioxide (22-32) mmol/L BUN (7-17) mg/dL Creatinine (0.52-1.04) mg/dL Estimated GFR (>60) mL/min BUN/Creatinine Ratio (6-22) Glucose (70-100) mg/dL Calcium (8.4-10.2) mg/dL Magnesium 1.9 (1.6-2.3) mg/dL Total Bilirubin (0.2-1.3) mg/dL AST (14-36) IU/L ALT (<35) IU/L Alkaline Phosphatase (38-126) U/L Total Creatine Kinase 40 (30-135) U/L CK-MB (CK-2) TNP CK-MB (CK-2) Rel Index TNP Troponin I < 0.012 (0.01-0.034) ng/mL NT-Pro-B Natriuret Pep 17 (<125) pg/mL Total Protein (6.3-8.2) g/dL Albumin (3.5-5.0) g/dL Globulin (1.7-4.1) g/dL Albumin/Globulin Ratio (1.0-2.8) Lipase 76 (23-300) U/L Urine RBC 0-1/hpf (0-5/HPF) Urine WBC 5-10/hpf H (0-5/HPF) Ur Squamous Epith Cells 5-10 /hpf H (0-5/HPF) Urine Bacteria Few (2-10) H (None) Ur Culture Indicated? Specimen cultured Chlamy pneumoniae PCR Not detected (Not Detect) Adenovirus (PCR) Not detected (Not Detect) B. pertussis DNA (PCR) Not detected (Not Detecte) B.parapertussis DNA PCR Not detected (Not Detecte) Coronavirus OC43 (PCR) Not detected (Not Detect) Coronavirus HKU1 (PCR) Not detected (Not Detect) Coronavirus 229E (PCR) Not detected (Not Detect) SARS-CoV-2 (PCR) Not detected (Not Detecte) Coronavirus NL63 (PCR) Not detected (Not Detect) Human Metapneumovir PCR Not detected (Not Detect) Influenza Type A (PCR) Not detected (Not Detect) Influenza Type B (PCR) Not detected (Not Detect) M. pneumoniae (PCR) Not detected (Not Detect) Parainfluenza 1 (PCR) Not detected (Not Detect) Parainfluenza 2 (PCR) Not detected (Not Detect) Parainfluenza 3 (PCR) Not detected (Not Detect) Parainfluenza 4 (PCR) Not detected (Not Detect) RSV (PCR) Not detected (Not Detect) Entero/Rhino (PCR) Detected H (Not Detect) Point of Care Testing Test Results Negative Urine Dip Bedside Urine Glucose Negative Bedside Urine Bilirubin - Negative Bedside Urine Ketone - Negative Urine Specific [place] 1.015 Bedside Urine Occult Blood - Negative Bedside Urine pH 6 Bedside Urine Protein - Negative Bedside Urine Urobilinogen - Negative Bedside Urine Nitrite - Negative Bedside Urine Leukocytes + 70 Esterase MDM Narrative Medical decision making narrative: Patient with relatively sudden onset shortness of breath with cough and high heart rate in the absence of fever or chills. She has had other upper respiratory symptoms such as nasal congestion and drainage. Vital signs greatly improved after above-stated therapies. Multiple diagnoses considered including pulmonary embolism which is thought to be less likely given D-dimer level. Electrolyte abnormality, anemia and others considered but thought unlikely given lack of significant findings in the lab work. Repeat fluids, chest x-ray and respiratory panel are pending. Patient signed out to Dr. Hooks for final disposition <Ector Hooks DO - Last Filed: 10/24/21 09:15> Lab Data Labs: Lab Results 10/24/21 10/24/21 10/24/21 Range/Units 05:15 05:15 05:15 WBC 11.6 H (4.5-11.0) X10^3/uL RBC 4.67 (4.0-5.2) X10^6/uL Hgb 13.4 (12.0-16.0) g/dL Hct 39.3 (36-46) % MCV 84.3 (80-100) fL MCH 28.7 (26-34) PG MCHC 34.0 (30-36) % RDW 13.6 (11.6-14.8) % Plt Count 344 (150-400) X10^3/uL Neut % (Auto) 67.1 (50-75) % Lymph % (Auto) 17.8 L (25-40) % Benton % (Auto) 11.2 (3-14) % Eos % (Auto) 3.6 (2-4) % Baso % (Auto) 0.3 (0-2) % Neut # (Auto) 7800 H (5044-0781) /uL Lymph # (Auto) 2100 (8335-6989) /uL Benton # (Auto) 1300 H (0-900) /uL Eos # (Auto) 400 (0-450) /uL Baso # (Auto) 0 (0-100) /uL D-Dimer 234 H (<230) ng/mL Sodium 137 (137-145) mmol/L Potassium 4.2 (3.4-5.1) mmol/L Chloride 106 (98-107) mmol/L Carbon Dioxide 25 (22-32) mmol/L BUN 10 (7-17) mg/dL Creatinine 0.71 (0.52-1.04) mg/dL Estimated GFR > 60 (>60) mL/min BUN/Creatinine Ratio 14.1 (6-22) Glucose 101 H (70-100) mg/dL Calcium 9.0 (8.4-10.2) mg/dL Magnesium (1.6-2.3) mg/dL Total Bilirubin 0.5 (0.2-1.3) mg/dL AST 31 (14-36) IU/L ALT 49 H (<35) IU/L Alkaline Phosphatase 92 (38-126) U/L Total Creatine Kinase (30-135) U/L CK-MB (CK-2) CK-MB (CK-2) Rel Index Troponin I (0.01-0.034) ng/mL NT-Pro-B Natriuret Pep (<125) pg/mL Total Protein 7.8 (6.3-8.2) g/dL Albumin 4.4 (3.5-5.0) g/dL Globulin 3.4 (1.7-4.1) g/dL Albumin/Globulin Ratio 1.3 (1.0-2.8) Lipase (23-300) U/L Urine RBC (0-5/HPF) Urine WBC (0-5/HPF) Ur Squamous Epith Cells (0-5/HPF) Urine Bacteria (None) Ur Culture Indicated? Chlamy pneumoniae PCR (Not Detect) Adenovirus (PCR) (Not Detect) B. pertussis DNA (PCR) (Not Detecte) B.parapertussis DNA PCR (Not Detecte) Coronavirus OC43 (PCR) (Not Detect) Coronavirus HKU1 (PCR) (Not Detect) Coronavirus 229E (PCR) (Not Detect) SARS-CoV-2 (PCR) (Not Detecte) Coronavirus NL63 (PCR) (Not Detect) Human Metapneumovir PCR (Not Detect) Influenza Type A (PCR) (Not Detect) Influenza Type B (PCR) (Not Detect) M. pneumoniae (PCR) (Not Detect) Parainfluenza 1 (PCR) (Not Detect) Parainfluenza 2 (PCR) (Not Detect) Parainfluenza 3 (PCR) (Not Detect) Parainfluenza 4 (PCR) (Not Detect) RSV (PCR) (Not Detect) Entero/Rhino (PCR) (Not Detect) 10/24/21 10/24/21 10/24/21 Range/Units 05:15 06:20 08:11 WBC (4.5-11.0) X10^3/uL RBC (4.0-5.2) X10^6/uL Hgb (12.0-16.0) g/dL Hct (36-46) % MCV (80-100) fL MCH (26-34) PG MCHC (30-36) % RDW (11.6-14.8) % Plt Count (150-400) X10^3/uL Neut % (Auto) (50-75) % Lymph % (Auto) (25-40) % Benton % (Auto) (3-14) % Eos % (Auto) (2-4) % Baso % (Auto) (0-2) % Neut # (Auto) (9812-6785) /uL Lymph # (Auto) (9301-5226) /uL Benton # (Auto) (0-900) /uL Eos # (Auto) (0-450) /uL Baso # (Auto) (0-100) /uL D-Dimer (<230) ng/mL Sodium (137-145) mmol/L Potassium (3.4-5.1) mmol/L Chloride (98-107) mmol/L Carbon Dioxide (22-32) mmol/L BUN (7-17) mg/dL Creatinine (0.52-1.04) mg/dL Estimated GFR (>60) mL/min BUN/Creatinine Ratio (6-22) Glucose (70-100) mg/dL Calcium (8.4-10.2) mg/dL Magnesium 1.9 (1.6-2.3) mg/dL Total Bilirubin (0.2-1.3) mg/dL AST (14-36) IU/L ALT (<35) IU/L Alkaline Phosphatase (38-126) U/L Total Creatine Kinase 40 (30-135) U/L CK-MB (CK-2) TNP CK-MB (CK-2) Rel Index TNP Troponin I < 0.012 (0.01-0.034) ng/mL NT-Pro-B Natriuret Pep 17 (<125) pg/mL Total Protein (6.3-8.2) g/dL Albumin (3.5-5.0) g/dL Globulin (1.7-4.1) g/dL Albumin/Globulin Ratio (1.0-2.8) Lipase 76 (23-300) U/L Urine RBC 0-1/hpf (0-5/HPF) Urine WBC 5-10/hpf H (0-5/HPF) Ur Squamous Epith Cells 5-10 /hpf H (0-5/HPF) Urine Bacteria Few (2-10) H (None) Ur Culture Indicated? Specimen cultured Chlamy pneumoniae PCR Not detected (Not Detect) Adenovirus (PCR) Not detected (Not Detect) B. pertussis DNA (PCR) Not detected (Not Detecte) B.parapertussis DNA PCR Not detected (Not Detecte) Coronavirus OC43 (PCR) Not detected (Not Detect) Coronavirus HKU1 (PCR) Not detected (Not Detect) Coronavirus 229E (PCR) Not detected (Not Detect) SARS-CoV-2 (PCR) Not detected (Not Detecte) Coronavirus NL63 (PCR) Not detected (Not Detect) Human Metapneumovir PCR Not detected (Not Detect) Influenza Type A (PCR) Not detected (Not Detect) Influenza Type B (PCR) Not detected (Not Detect) M. pneumoniae (PCR) Not detected (Not Detect) Parainfluenza 1 (PCR) Not detected (Not Detect) Parainfluenza 2 (PCR) Not detected (Not Detect) Parainfluenza 3 (PCR) Not detected (Not Detect) Parainfluenza 4 (PCR) Not detected (Not Detect) RSV (PCR) Not detected (Not Detect) Entero/Rhino (PCR) Detected H (Not Detect) Point of Care Testing Test Results Negative Urine Dip Bedside Urine Glucose Negative Bedside Urine Bilirubin - Negative Bedside Urine Ketone - Negative Urine Specific [place] 1.015 Bedside Urine Occult Blood - Negative Bedside Urine pH 6 Bedside Urine Protein - Negative Bedside Urine Urobilinogen - Negative Bedside Urine Nitrite - Negative Bedside Urine Leukocytes + 70 Esterase MDM Narrative Medical decision making narrative: Patient with relatively sudden onset shortness of breath with cough and high heart rate in the absence of fever or chills. She has had other upper respiratory symptoms such as nasal congestion and drainage. Vital signs greatly improved after above-stated therapies. Multiple diagnoses considered including pulmonary embolism which is thought to be less likely given D-dimer level. Electrolyte abnormality, anemia and others considered but thought unlikely given lack of significant findings in the lab work. Repeat fluids, chest x-ray and respiratory panel are pending. Patient signed out to Dr. Hooks for final disposition Dr hooks: Received turned over. Review patient's history and physical exam. Chest x-ray does not show signs pneumonia. She is positive for rhino virus. She has no chest pain. She also has no urinary symptoms. We will wait for the urine culture to result until we start any antibiotics. I suspect the rhino virus is the cause of her presenting symptoms. She is not hypoxic. Did discuss the case with oncology. He states that there is no specific treatment for rhino virus. She is not neutropenic. Will discharge home with strict return precautions. She expressed understanding and agreement. Discharge Plan Departure Patient Disposition: Home Clinical Impression: Rhinovirus infection Instructions: DI for Viral Upper Respiratory Infection -- Adult Activity Restrictions/Additional Instructions: Continue all medications as directed. Contact your primary doctor for follow-up. Keep all of her scheduled medical appointments. A urine culture is pending at the time your discharge we will contact you if we need to start any antibiotics. Please return to the emergency department for any new or worsening symptoms. Prescriptions: No Action lorazepam [Ativan] 0.5 mg tablet 0.5 mg PO BEDTIME PRN (Reason: Insomnia) Qty: 30 0RF lidocaine-prilocaine 2.5-2.5 % Cream 1 applic topical PRN PRN (Reason: Pain At Injection Site) Qty: 30 0RF Rx Instructions: Apply to the skin isatu the port at least 2 hours befor planned use of the port. Cover the cream with a small piece of plastic wrap and leave in place until the port is accessed. Referrals: Riddhi Cosme DO [Primary Care Provider] - Visit Report Forms: Patient Portal/API
[2021-10-24 05:28] LABS: Add Manual Diff / Slide Review NO; Basophils Absolute Auto 0 /uL (0-100); Basophils Percent Auto 0.3 % (0-2); Eosinophils Absolute Auto 400 /uL (0-450); Eosinophils Percent Auto 3.6 % (2-4); Hematocrit 39.3 % (36-46); Hemoglobin 13.4 g/dL (12.0-16.0); Lymphocytes Absolute Auto 2100 /uL (1100-4500); Lymphocytes Percent Auto 17.8 % (25-40); Mean Corpuscular Hemoglobin 28.7 PG (26-34); Mean Corpuscular Volume 84.3 fL (80-100); Monocytes Absolute Auto 1300 /uL (0-900); Monocytes Percent Auto 11.2 % (3-14); Neutrophils Absolute Auto 7800 /uL (1500-7000); Neutrophils Percent Auto 67.1 % (50-75); Platelet Count 344 X10^3/uL (150-400); Red Blood Cell Count 4.67 X10^6/uL (4.0-5.2); Red Cell Distribution Width 13.6 % (11.6-14.8); White Blood Cell Count 11.6 X10^3/uL (4.5-11.0)
[2021-10-24] MEDS: SODIUM CHLORIDE 0.9% 1,000 ML 1000 ML IV ×2 (05:30→06:43)
[2021-10-24 05:42] LABS: D Dimer 234 ng/mL (<230)
[2021-10-24 05:43] LABS: Alanine Aminotransferase 49 IU/L (<35); Albumin 4.4 g/dL (3.5-5.0); Albumin Globulin Ratio 1.3 (1.0-2.8); Alkaline Phosphatase 92 U/L (38-126); Aspartate Aminotransferase 31 IU/L (14-36); BUN Creatinine Ratio 14.1 (6-22); Bilirubin Total 0.5 mg/dL (0.2-1.3); Blood Urea Nitrogen 10 mg/dL (7-17); Carbon Dioxide 25 mmol/L (22-32); Chloride 106 mmol/L (98-107); Creatine Kinase 40 U/L (30-135); Estimated Glomerular Filt Rate > 60 mL/min (>60); Globulin 3.4 g/dL (1.7-4.1); Glucose 101 mg/dL (70-100); HEMOLYSIS < 15 (0-50); Lipase 76 U/L (23-300); Magnesium 1.9 mg/dL (1.6-2.3); Potassium 4.2 mmol/L (3.4-5.1); Sodium 137 mmol/L (137-145); Total Protein 7.8 g/dL (6.3-8.2)
[2021-10-24 05:55] LABS: NT-proBNP (BNP-Adult 18+) 17 pg/mL (<125); Troponin I < 0.012 ng/mL (0.01-0.034)
--- NOTE | 2021-10-24 06:06 | DI.RAD.S_ITS ---
PROCEDURE: XR CHEST 2V INDICATIONS: SOB TECHNIQUE: 2 views of the chest were acquired. COMPARISON: [facility], CR, XR CHEST 1V, 07/18/2019, 17:00. [facility], CR, XR CHEST 1V, 01/22/2020, 12:12. FINDINGS: Surgical changes and devices: Left chest wall port with the tip overlying the superior vena cava, unchanged. Lungs and pleura: Linear density overlying the right upper lung. No focal consolidation. No pleural effusions or pneumothorax. Mediastinum: Mediastinal contours are normal. Heart size is normal. Bones and chest wall: No suspicious bony abnormalities. Soft tissues appear unremarkable. IMPRESSION: Linear density of the right upper lung favoring atelectasis/scarring. No focal consolidation or other acute cardiopulmonary abnormality. Dictated by: Nathan Yung D.O. on 10/24/2021 at 6:22 Approved by: Nathan Yung D.O. on 10/24/2021 at 6:25
[2021-10-24 07:27] LABS: Adenovirus Not Detected (Not Detect); SARS- CoV-2 Not Detected (Not Detecte)
[2021-10-24 07:28] LABS: Coronavirus 229E Not Detected (Not Detect); Coronavirus HKU1 Not Detected (Not Detect); Coronavirus NL 63 Not Detected (Not Detect); Coronavirus OC43 Not Detected (Not Detect); Human Metapneumovirus Not Detected (Not Detect); Human Rhinovirus/Enterovirus Detected (Not Detect); Influenza A Not Detected (Not Detect); Influenza B Not Detected (Not Detect)
[2021-10-24 07:29] LABS: B. parapertussis Not Detected (Not Detecte); Bordetella pertussis Not Detected (Not Detecte); Chlamydophila pneumoniae Not Detected (Not Detect); Mycoplasma pneumoniae Not Detected (Not Detect); Parainfluenza Virus 1 Not Detected (Not Detect); Parainfluenza Virus 2 Not Detected (Not Detect); Parainfluenza Virus 3 Not Detected (Not Detect); Parainfluenza Virus 4 Not Detected (Not Detect); Respiratory Syncytial Virus Not Detected (Not Detect)
[2021-10-24 08:54] LABS: Bacteria Urine Few (2-10); RBC Urine 0-1/HPF (0-5/HPF); Squamous Epithelial Cell Urine 5-10 /HPF (0-5/HPF); WBC Urine 5-10/HPF (0-5/HPF)
[2021-10-24 08:58] LABS: Culture Indicated Urine Specimen Cultured
== END 2021-10-24 09:31 | disposition home or self-care (01) ==
PROVIDERS: Emergency Medicine; Emergency Provider Emergency Medicine; PCP Family Medicine
DX: J06.9 Acute upper respiratory infection, unspecified (principal); B34.8 Other viral infections of unspecified site; Z20.822 Contact with and (suspected) exposure to COVID-19
CPT/HCPCS: 36415; 71046; 80053; 81003; 81015; 81025; 82550; 83690; 83735; 83880; 84484; 85025; 85379; 87086; 87633; 93005; 96360; 96361; 99284

== ENCOUNTER → 2021-12-28 07:50 | Outpatient (CLI) | payer OTHER, SELFPAY ==
[2019-11-22 12:38] VITALS: BMI 31.4
--- NOTE | 2021-12-28 07:51 | DI.ECHO.S_ITS ---
[facility]---------+ [facility] +---------+ : : [address] : : [place], [place] : : : : [id number] : : : : Phone: [phone] Echocardiogram Report + + :Name: OSMAN ESPINOZA Study Date: 12/28/2021 Height: 63 in : :[facility] ReadingLocation: Weight: 200 lb : : Gender: Female BSA: 1.9 m2 : :: 1985 Age: 36 yrs BP: 127/96 mmHg: :Reason For Study: CARDIOTOXICITY MONITORING, HERCEPTIN : :Ordering Physician: DESTINEE, : :HARRY Performed By: Sakshi Palacio : :Referring: HARRY FELIPE : + + Interpretation Summary Limited Echo: 1) Normal left ventricular thickness, size, wall motion, and systolic function (EF 55-60%). 2) Left ventricular global longitudinal strain average is -20.1%. 3) Compared to the Echo done 06/11/2021, no significant change. Procedure: A two-dimensional transthoracic echocardiogram with color flow and Doppler was performed in limited views only to assess Left ventiruclar heart function.. Comparison is made with the echocardiogram of 06/11/2021. The patient was in sinus rhythm with heart rates between 69-80 bpm during the exam. Left Ventricle: The left ventricle is normal in size and wall thickness. The ejection fraction is estimated to be 55-60%. Left ventricular global longitudinal strain average is -20.1%. Previous strain 06/11/2021 of -22.6%. Left ventricular wall motion is normal. Right Ventricle: The right ventricular systolic function is normal. Atria: The left atrial size is normal. Right atrial size is normal. Tricuspid Valve: There is trace tricuspid regurgitation. Pericardium/ Pleura There is no pericardial effusion. There is no pleural effusion. MMode/2D Measurements & Calculations LVIDd: 4.7 cm LA dimension: 3.6 cm LVIDs: 3.2 cm LA A4 area: 12.4 cm2 FS: 31.9 % LA length (vol): 4.3 cm IVSd: 0.91 cm LVPWd: 0.72 cm LV mason. diameter/BSA (cm/m^2): 2.4 LV sys. diameter/BSA (cm/m^2): 1.6 RA long axis: 3.9 cm TAPSE: 2.0 cm RA area: 12.1 cm2 RA vol: 31.9 ml RA : 16.5 ml/m2 IVC diam: 1.1 cm Doppler Measurements & Calculations TR max edita: 229.1 cm/sec TR max P.0 mmHg Reading Physician:03:19 PM
== END ==
PROVIDERS: PCP Family Medicine; Referring Provider Internal Medicine Hematology & Oncology; Visit Provider Internal Medicine Hematology & Oncology
DX: I42.7 Cardiomyopathy due to drug and external agent (principal); C50.911 Malignant neoplasm of unspecified site of right female breast
CPT/HCPCS: 93307

== ENCOUNTER → 2022-04-22 11:58 | Outpatient (CLI) | payer OTHER, SELFPAY ==
[2019-11-22 12:38] VITALS: BMI 31.4
--- NOTE | 2022-04-22 11:59 | DI.MG.S_ITS ---
UNILATERAL LEFT DIGITAL SCREENING MAMMOGRAM 3D/2D WITH CAD: 04/22/2022 CLINICAL: Routine screening. Personal history of right breast cancer. Comparison is made to exams dated: 04/22/2021 mammogram and 05/31/2019 mammogram - [facility]. The left breast is extremely dense, which lowers the sensitivity of mammography (category d />75% glandular tissue). Current study was also evaluated with a Computer Aided Detection (CAD) system. No significant masses, calcifications, or other findings are seen in the breast. There has been no significant interval change. IMPRESSION: NEGATIVE There is no mammographic evidence of malignancy. A 1 year screening mammogram is recommended. This exam was interpreted at Station ID: [id number]. NOTE: For mammograms, a report in lay terms will be sent to the patient. Approximately 15% of breast malignancies will not be visualized mammographically. In the management of a palpable breast mass, a negative mammogram must not discourage biopsy of a clinically suspicious lesion. Electronically Signed By: Leobardo Rawls M.D., jr/eliud:04/22/2022 14:58:07 copy to: ELIDIA ECKERT D.O., [facility], ph: [phone], fax: [phone] letter sent: Normal Exam ACR BI-RADS Category 1: Negative 3341F
== END ==
PROVIDERS: PCP Family Medicine; Referring Provider Internal Medicine Hematology & Oncology; Visit Provider Internal Medicine Hematology & Oncology
DX: C50.911 Malignant neoplasm of unspecified site of right female breast (principal); Z12.31 Encounter for screening mammogram for malignant neoplasm of breast
CPT/HCPCS: 77063; 77067

== ENCOUNTER → 2022-07-15 14:41 | Outpatient (CLI) | payer OTHER, SELFPAY ==
[2019-11-22 12:38] VITALS: BMI 31.4
--- NOTE | 2022-07-15 14:42 | DI.RAD.S_ITS ---
Bone Density Report Name: OSMAN ESPINOZA Age: 37 Sex: Female Ethnicity: Date of : 1985 Indication: Referring Provider: HARRY FELIPE Study: Bone densitometry was performed. Exam Date: July 15, 2022 Accession number: [id number] Bone Density: Region BMD T-score Z-score Classification AP Spine(L1-L4) 1.006 -0.3 Femoral Neck (Left) 0.962 0.7 Total Hip (Left) 1.100 1.0 Femoral Neck (Right) 0.954 0.7 Total Hip (Right) 1.100 1.0 Total Hip Mean 1.100 1.0 Total Forearm (Left) 0.639 1.3 1/3 Forearm (Left) 0.753 1.2 UD Forearm (Left) 0.506 1.2 World Health Organization criteria for BMD impression classify patients as: Normal (T-score at or above -1.0), Osteopenia (T-score between -1.0 and -2.5), or Osteoporosis (T-score at or below -2.5). 10-year Fracture Risk: FRAX not reported because: Premenopausal woman Impression: The patient's bone mass is within expected range for age, gender and ethnicity. Discussion: BONE DENSITY IS WITHIN EXPECTED LIMITS FOR AGE, SEX AND RACE. Bone density is within expected limits for age, sex and race at all sites measured. The patient should follow a healthful lifestyle (good nutrition with adequate calcium and vitamin D, and appropriate weight-bearing exercise). Follow-Up: Consider repeating this study in 5 years or sooner if there is some new clinical indication. Reported by: BIB NICHOLSON M.D on 07/15/2022 3:04:00 PM.
== END ==
PROVIDERS: PCP Family Medicine; Referring Provider Internal Medicine Hematology & Oncology; Visit Provider Internal Medicine Hematology & Oncology
DX: C50.911 Malignant neoplasm of unspecified site of right female breast (principal); Z79.811 Long term (current) use of aromatase inhibitors
CPT/HCPCS: 77080; 77081

== ENCOUNTER 2022-11-08 08:02 | Day surgery (SDC) | payer OTHER, SELFPAY ==
[2019-11-22 12:38] VITALS: BMI 31.4
[2022-10-26 10:55] VITALS: BMI 35.9
[2022-11-08] VITALS (13 sets, daily range): BP systolic 106–130; BP diastolic 70–93; PULSE 76–90; RESP 14–24; TEMP 36–36.4; O2SAT 96–100; BMI 35.9
--- NOTE | 2022-11-08 | PATH_ITS ---
[facility] Accession Number: [id number] No. of containers..01 Tissue . 01 Material submitted: . fallopian tube - BILATERAL FALLOPIAN TUBES AND OVARIES . 01 Clinical history: . WITH FAT REMOVED FROM ANTERIOR ABDOMEN . 01 Diagnosis: Left and Right Fallopian Tubes and Ovaries, Bilateral Salpingo-oophorectomy: Fallopian tubes: Focal endosalpingiosis and bilateral benign paratubal cysts; negative for malignancy. Ovaries: Multiple cystic follicles; negative for malignancy. . Soft Tissue, Anterior Abdomen, Excision: Benign mature adipose tissue. . [facility] 11/16/2022 1838 Local . 01 Electronically signed: . Tomasa Becker MD, Pathologist NPI- [id number] . 01 Gross description: . The specimen is received in formalin labeled with the patient's name, , and bilateral fallopian tubes and ovaries consists of two unoriented fallopian tube and ovary pairs. The first fallopian tube measures 5.2 cm in length by 0.8 cm in diameter while the first ovary weights 7 grams and measures 3.8 x 2.3 x 1.7 cm. The second fallopian tube measures 5.1 cm in length by 0.5 cm in diameter while the second ovary weights 6 grams and measures 4.2 x 1.7 x 1.7 cm. . The first fallopian tube has violaceous smooth serosa with no cystic structures identified, and sectioning reveals an unremarkable stellate lumen. The first ovary has a sauceda, cerebriform external surface and sectioning reveals several thin smooth-walled cystic structures filled with serous fluid measuring up to 1.0 cm in greatest dimension. No lesions are identified. . The second fallopian tube has sauceda smooth serosa with a cystic structure measuring 1.5 cm in greatest dimension filled with sauceda serous fluid. Sectioning reveals an unremarkable stellate lumen. The second ovary has a sauceda cerebriform external surface, and sectioning reveals multiple thin smooth-walled cystic structures filled with serous fluid measuring up to 0.7 cm in greatest dimension with no lesions identified. . Also within the container is a yellow soft tissue fragment measuring 2.1 x 1.4 x 1.0 cm. Sectioning reveals a yellow soft unremarkable cut surface. All of the fallopian tube and ovaries and field service representative yellow soft tissue fragment are submitted as follows: . A1-A4: First fallopian tube. A5-A12: First ovary. A13-A15: Second fallopian tube. A16-A22: Second fallopian tube. A23: Customer Facilities Supervisor yellow soft tissue fragment. ([id number]) /MRV 11/09/2022 1546 Local . 01 Pathologist provided ICD-10: Z85.3 . 01 CPT . 551178, 053336 Specimen Comment: A courtesy copy of this report has been sent to [phone] Performed at: 01 [facility] [address] [place] [address] [address] [facility], [place], [place] [id number] MD Howard Mireles MD Phone: [phone]
--- NOTE | 2022-11-08 09:07 | PM.GYNHP.1 ---
History of Present Illness History of Present Illness Narrative: Rebekah Mcdaniel is a 37 year old female 3 para 3 who presents for a laparoscopic bilateral salpingo-oophorectomy due to an estrogen receptor-positive breast cancer. [facility] Medical History (Updated 08/16/22 @ 18:48 by Bambi Shelton MD) Cancer of right breast section wound complications Diarrhea Hospitalization or health care facility admission within last 6 months (07/18/19) Hypomagnesemia Surgical History (Updated 10/26/22 @ 11:55 by Megan Vinson RN) History of section History of liver biopsy (12/17/20) History of removal of Port-a-Cath (07/19/19) History of surgery (01/22/20) Hx of right mastectomy (12/25/19) S/P lumpectomy, right breast (12/11/19) S/P right breast biopsy [place] teeth removed Family History Grandmother Pancreatic cancer Diabetes mellitus Breast cancer Cancer Father Heart disease Unknown Stomach cancer Colon cancer Social History marital status: number of children: 3 household members: spouse and children Smoking Status: Never smoker alcohol intake: never substance use type: does not use Meds Home Medications and Allergies Home Medications Medication Instructions Recorded Confirmed Type lidocaine-prilocaine 2.5 %-2.5 % 1 applic topical PRN PRN Pain At 07/23/21 11/08/22 Rx topical cream Injection Site #30 grams lorazepam 0.5 mg tablet (Ativan) 0.5 mg PO BEDTIME PRN Insomnia #30 02/16/22 11/08/22 Rx tabs anastrozole 1 mg tablet 1 mg PO DAILY breast cancer #30 03/24/22 11/08/22 Rx tabs leuprolide [Lupron Depot-Ped] IM 10/19/22 10/19/22 History venlafaxine 37.5 mg 37.5 mg PO DAILY #30 caps 10/19/22 11/08/22 Rx capsule,extended release 24 hr lorazepam 1 mg tablet (Ativan) 1 mg PO DAILY PRN anxiety #1 tab 10/26/22 11/08/22 Rx Allergies Allergy/AdvReac Type Severity Reaction Status Date / Time shrimp Allergy Severe SOA Verified 11/08/22 08:17 chlorhexidine Allergy Verified 11/08/22 08:17 iodine AdvReac PT STATES Verified 11/08/22 08:17 strawberry AdvReac Hives Verified 11/08/22 08:17 Exam Vital Signs (past 8 hours): - 11/08/22 08:22 Temperature 96.8 F L Pulse Rate 81 Respiratory Rate 19 Blood Pressure 128/93 H Pulse Oximetry 99 Oxygen Delivery Method Room Air Oxygen Delivery Method Room Air Narrative Exam Narrative: HEENT: No thyromegaly, no anterior cervical or supraclavicular lymphadenopathy. Lungs:Clear to auscultation bilaterally, no wheezes. Chest: Well-healed left mastectomy scar. Well-healed Port-A-Cath site. Cardiovascular: Regular rate and rhythm, no murmurs, rubs, or gallops. Abdomen: Well-healed Pfannenstiel scars. No hepatosplenomegaly. No masses palpable. External genitalia: Normal Vagina: Normal Cervix: Normal Bimanual exam: [6 Week size uterus. Mobile.] Extremities: No edema Assessment & Plan Assessment & Plan narrative: Assessment: 37-year-old 3 para 3 with an estrogen receptor positive breast cancer Plan: Laparoscopic bilateral salpingo-oophorectomy The risks, benefits, and alternatives to the procedure were explained to the patient. The risks including bleeding, infection, injury to the bowel, bladder, or ureters. She understands these risks and agrees to proceed. A full par Q was held and consent form was signed. Time Spent With Patient Time with patient: less than 30 minutes
--- NOTE | 2022-11-08 09:11 | PM.PREOP ---
Pre-operative Note COVID-19 Criteria for continued procedure: Non-surgical alternatives not available or appropriate per current SOC Interval Note History & Physical reviewed/Exam performed by Physician: Yes Changes to H&P: No H&P completed within 30 days and has changed as indicated here:: 11/08/22
--- NOTE | 2022-11-08 10:46 | SUR.OPER ---
Lithotomy on padded OR bed, head on pillow, arms secured on padded arm boards at <90 degrees abduction. Legs secured in padded yellow fins stirrups.
[2022-11-08] MEDS: BUPIVACAINE 0.5% (PF) 20 ML, EPINEPHrine 0.1 MG INJ (10:52)
[2022-11-08] MEDS: OXYCODONE/ACETAMINOPHEN 5/325 TABLET 1 TAB PO ×2 (11:46→13:24)
--- NOTE | 2022-11-08 11:47 | PM.GYNOP.1 ---
Operative Date/Time/Diagnoses Date of procedure: 11/08/22 Time of procedure: 11:47 Pre-op diagnosis: Estrogen receptor positive breast cancer Post-op diagnosis: same Procedure & Clinicians Procedure: Procedures Operation Date: 11/08/22 09:15 Actual Procedure Side Surgeon p Laparoscopic Salpingectomy-oophorectomy, anterior abdomen fat removal, and lysis of adhesions Bilateral Aleksandra Rosa MD Indications: Estrogen receptor positive breast cancer Surgeon: Aleksandra Rosa Anesthesia Type: General and Local Operative Notes Findings: Six week size retroverted uterus Normal right tube and ovary Normal left tube and ovary Left adnexal adhesions Fat prolapsed from the anterior abdominal wall Normal liver and gallbladder Normal appendix Closure Type: primary Specimen(s): left tube & ovary, right tube & ovary and other (Piece of fat from anterior abdominal wall) Estimated blood loss (mL): 10 Blood products transfused: none Procedure in detail: After informed consent was obtained, the patient was taken to the operating room where she was placed in the dorsal supine position. After adequate general endotracheal anesthesia was achieved, she was placed in the dorsal lithotomy position, and prepped and draped in the usual sterile fashion. A time-out was performed. A bivalve speculum was placed into the vagina and the anterior lip of the cervix was grasped with a single-tooth tenaculum. The cervical os was sequentially dilated in a retroverted position until the Zumi uterine manipulator could pass easily into the endometrial cavity. The single-tooth tenaculum was removed from the anterior lip of the cervix. The bivalve speculum was removed from the vagina. Attention was then turned to the abdomen where 4 cc of 0.5% Marcaine with epinephrine were injected in the umbilical fold. A 5 mm incision was made. The Veress needle was placed into the peritoneal cavity, and its placement confirmed by aspiration and drop test. The abdominal cavity was insufflated with 3.6 L of CO2. The Veress needle was removed, and a 5 mm trocar was placed without difficulty. Two other 5 mm trocars were placed after 4 cc of 0.5% Marcaine with epinephrine were injected and 2 5 mm incisions were made. These were 4 cm lateral to the midline at the level of the umbilicus. The pelvis and abdomen were examined with findings noted above. The right tube and ovary were grasped with an atraumatic grasper. Using the power seal, the infundibulopelvic ligament on the right side was cauterized and cut. The mesosalpinx was cauterized and cut all the way down to the cornua of the uterus. The tube was amputated at the cornua. The right tube and ovary were placed into the anterior cul-de-sac. Coming down from the anterior abdominal wall there was a piece of fat. This was grasped with an atraumatic grasper. Using the power seal with cautery and cut this was removed. It measured approximately 2 cm x 1 cm. On the left side the left tube and ovary were grasped with an atraumatic grasper. There were some adhesions between the bowel and the ovary and tube. These were taken down with the endo Aj. The infundibulopelvic ligament was then cauterized and cut with the power seal. The mesosalpinx was cauterized and cut with the power seal. The tube was amputated at the level of the cornua of the uterus. The left tube and ovary were placed into the anterior cul-de-sac. 6 cc of 0.5% Marcaine with epinephrine were injected above the pubic symphysis at the level of the previous Pfannenstiel incision. A 12 mm incision was made. A 12 mm trocar was placed under direct visualization. The small endobag was placed through the suprapubic trocar. Both tubes and ovaries and the piece of fat from the anterior abdominal wall were placed into the endobag. The trocar was removed and the bag was removed through the incision. The fascia on the suprapubic incision was closed with 0 Vicryl in a running fashion. The abdomen was re-insufflated. The pelvis was copiously irrigated with warm normal saline. There was no bleeding noted. The instruments were removed from the abdomen. The CO2 was allowed to escape. The incisions were closed with 4-0 Monocryl in a subcuticular fashion. Steri-Strips and Allevyn dressings were placed. The Zumi uterine manipulator was removed from the uterus. Sponge, lap, and instrument counts were correct x2. The patient tolerated the procedure well, and was taken to PACU in stable condition. Complications: none Post-operative Condition: stable Disposition: PACU Plan for aftercare: Home after recovery
[2022-11-08] MEDS: HYDROMORPHONE 2 MG INJ IV (12:09)
[2022-11-08] MEDS: LACTATED RINGERS 1,000 ML 100 ML IV (12:17)
[2022-11-08] MEDS: ONDANSETRON 4 MG/2 ML INJ IV ×2 (12:47→13:31)
--- NOTE | 2022-11-08 13:11 | SUR.PHASEII ---
Assumed care. Queasease provided. Call light within reach. Ice pack applied to right abdomen.
--- NOTE | 2022-11-08 14:05 | SUR.PHASEII ---
Patient dressed and started crying. Reported not feeling well, that her stomach was unsettled. Dr. Banerjee notified, VVO reglan and 500 ml IV bolus. Meds ordered.
[2022-11-08] MEDS: METOCLOPRAMIDE 10 MG/2 ML INJ IV (14:08)
[2022-11-08] MEDS: LACTATED RINGERS 1,000 ML 42 ML IV (14:09)
--- NOTE | 2022-11-08 14:30 | SUR.PHASEII ---
Patient reported feeling better and requested to discharge. 300mls IV fluid in. She did report feeling a rapid heart rate for less than one minute, which has resolved. Denied chest pain. VS stable. Dr. Banerjee notified. Patient may discharge per MD.
== END 2022-11-08 14:28 | disposition home or self-care (01) ==
PROVIDERS: PCP Family Medicine; Referring Provider Obstetrics & Gynecology; Visit Provider Obstetrics & Gynecology
PROC: 0UT74ZZ Resection of Bilateral Fallopian Tubes, Percutaneous Endoscopic Approach (ICD-10-PCS; CPT 58661; principal; 2022-11-08 09:15)
DX: C50.919 Malignant neoplasm of unspecified site of unspecified female breast (principal); Z17.0 Estrogen receptor positive status [ER+]
CPT/HCPCS: 58661; J0171; J0330; J1100; J1170; J1885; J2405; J2704; J2765; J3010

== ENCOUNTER → 2023-02-14 07:10 | Outpatient (CLI) | payer OTHER, SELFPAY ==
[2019-11-22 12:38] VITALS: BMI 31.4
--- NOTE | 2023-02-14 | DI.MRI.S_ITS ---
PROCEDURE: MR ABDOMEN WO/W CON INDICATIONS: ABNORMAL LIVER FUNCTION/HX CHEMO AND RADIATION TECHNIQUE: Coronal HASTE, axial 2D FLASH in- and [id number]; axial breath-hold T2 FSE. Dynamic axial VIBE during the administration of contrast; post-contrast coronal VIBE or 2D FLASH with fat saturation from the hepatic dome to the iliac crests. Optional diffusion weighted imaging and ADC may be performed. COMPARISON: [facility], , MR ABDOMEN WO/W CON, 09/19/2020, 9:29. FINDINGS: Image quality: Excellent. Lung bases: No basal pleural effusions. Heart size is normal. Liver: Marked hepatic steatosis (23 percent calculated). Therefore new liver lesions which demonstrate T2 hypointense, T1 hyperintense signal, with arterial enhancement and following close to blood pool on the delayed sequences. These include: -1.3 centimeter segment 8 lesion (series 4, image 13). -1.0 centimeters segment 7 lesion (series 4, image 13). -1.0 centimeter segment 2 lesion (series 4, image 19). -1 centimeters segment 4 lesion (series 4, image 24). Gallbladder and biliary tree: No gallstones or biliary dilation. Spleen: Interval decrease in size of the pseudo cystic lesion of the spleen measuring 2.5 centimeters Pancreas: No ductal dilation. Adrenal glands: No adrenal nodules. Kidneys: No hydronephrosis. No solid mass. No complex renal cysts which requires follow-up. Nodes and vessels: No retroperitoneal or mesenteric adenopathy by size criteria. Aorta and inferior vena cava are normal in size. Bowel and peritoneum: Unenhanced bowel loops are normal in caliber. No free fluid. Bones and soft tissues: No ventral hernias. Bone marrow is normal in overall signal. IMPRESSION: 4 new liver lesions with similar imaging characteristics, which are nonspecific. Differential includes hepatic adenomas, FNH, or malignancy (such as neuroendocrine tumor, melanoma). Can consider MRI with Eovist to exclude malignancy. Hepatic steatosis. In the absence of alcohol use or other confounding factors, elevated LFTs may indicate non-alcoholic steatohepatitis (BERG). Dictated by: Hugo Rao M.D. on 02/14/2023 at 9:04 Approved by: Hugo Roa M.D. on 02/14/2023 at 9:19
== END ==
PROVIDERS: PCP Family Medicine; Referring Provider Family Medicine; Visit Provider Family Medicine
DX: R94.5 Abnormal results of liver function studies (principal); Z92.21 Personal history of antineoplastic chemotherapy; Z92.3 Personal history of irradiation; K92.1 Melena; T50.995S Adverse effect of other drugs, medicaments and biological substances, sequela; K76.9 Liver disease, unspecified
CPT/HCPCS: 74183; A9579

== ENCOUNTER → 2023-02-23 10:13 | Outpatient (CLI) | payer OTHER, SELFPAY ==
[2019-11-22 12:38] VITALS: BMI 31.4
--- NOTE | 2023-02-23 | DI.MRI.S_ITS ---
PROCEDURE: MR PELVIS WO/W CON INDICATIONS: ABNORMAL LIVER FUNCTIONS/HX CHEMO AND RADIATION TECHNIQUE: Coronal HASTE, sagittal breath-hold T2 FSE; axial T1 FSE with and without fat saturation through the pelvis. Optional long- and short-axis uterine nonbreath-hold T2 FSE through the uterus. Sagittal or axial dynamic VIBE during administration of contrast. Post-contrast axial or coronal VIBE/2-D FLASH with fat saturation from the iliac crests to the symphysis. Optional diffusion weighted imaging and ADC may be performed. COMPARISON: None. FINDINGS: Image quality: Excellent. Uterus: Uterus is normal in size. Endometrium is normal in thickness 8. Junctional zone is normal in thickness at 12 mm or less. Uterus is in neutral position, but is retroflexed. Focus of chronic hemorrhagic products along the posterior cervix, possibly scar. 2 cm subserosal fibroid along the anterior margin (series 23, image 102) Additional tiny enhancing fibroid at the fundus (series 23, image 102). Adnexa: Both ovaries are normal in size, without suspicious cystic or solid lesions. Urinary system: Bladder wall is normal in thickness. Distal ureters are non distended. Urethra appears normal in morphology. Nodes and vessels: No pelvic or inguinal adenopathy by size criteria. Iliac vessels are normal in size. Bowel and peritoneum: No pathologic free pelvic fluid. Inferior colon and small bowel loops are normal in caliber. Soft tissues: No inguinal hernias. No findings of pelvic floor incompetence in the absence of provocation. Bones: Marrow demonstrates normal overall signal. IMPRESSION: A couple of small uterine fibroids. Otherwise, unremarkable pelvic MRI. Dictated by: Hugo Rao M.D. on 02/23/2023 at 13:58 Approved by: Hugo Rao M.D. on 02/23/2023 at 14:16
== END ==
PROVIDERS: PCP Family Medicine; Referring Provider Family Medicine; Visit Provider Family Medicine
DX: D25.2 Subserosal leiomyoma of uterus (principal); R93.89 Abnormal findings on diagnostic imaging of other specified body structures; C50.919 Malignant neoplasm of unspecified site of unspecified female breast; R16.0 Hepatomegaly, not elsewhere classified
CPT/HCPCS: 72197

== ENCOUNTER → 2023-04-27 10:04 | Outpatient (CLI) | payer OTHER, SELFPAY ==
[2019-11-22 12:38] VITALS: BMI 31.4
--- NOTE | 2023-04-27 | DI.MG.S_ITS ---
UNILATERAL LEFT DIGITAL SCREENING MAMMOGRAM 3D/2D WITH CAD POST MASTECTOMY: 04/27/2023 CLINICAL: Routine screening. Personal history of right breast cancer. Family History of breast cancer. Comparison is made to exams dated: 04/22/2022 mammogram, 04/22/2021 mammogram, and 05/31/2019 mammogram - [facility]. There are scattered areas of fibroglandular density in the left breast (category b / 25%-50% glandular tissue). Current study was also evaluated with a Computer Aided Detection (CAD) system. No significant masses, calcifications, or other findings are seen in the breast. There has been no significant interval change. IMPRESSION: NEGATIVE There is no mammographic evidence of malignancy. A 1 year screening mammogram is recommended. This exam was interpreted at Station ID: [id number]. NOTE: For mammograms, a report in lay terms will be sent to the patient. Approximately 15% of breast malignancies will not be visualized mammographically. In the management of a palpable breast mass, a negative mammogram must not discourage biopsy of a clinically suspicious lesion. Electronically Signed By: Steven naranjo/eliud:04/27/2023 12:12:29 copy to: ELIDIA ECKERT D.O., [facility], ph: [phone], fax: [phone] letter sent: Normal Exam ACR BI-RADS Category 1: Negative 3341F
== END ==
PROVIDERS: PCP Family Medicine; Referring Provider Family Medicine; Visit Provider Family Medicine
DX: Z12.31 Encounter for screening mammogram for malignant neoplasm of breast (principal); Z85.3 Personal history of malignant neoplasm of breast; Z80.3 Family history of malignant neoplasm of breast
CPT/HCPCS: 77063; 77067

== ENCOUNTER → 2024-03-17 08:08 | Outpatient (CLI) | payer OTHER, SELFPAY ==
[2019-11-22 12:38] VITALS: BMI 31.4
--- NOTE | 2024-03-17 08:10 | DI.MRI.S_ITS ---
PROCEDURE: MR ABDOMEN WO/W CON INDICATIONS: FOCAL NODULAR HYPERPLASIA OF LIVER TECHNIQUE: Coronal HASTE, axial 2D FLASH in- and [id number]; axial breath-hold T2 FSE. Dynamic axial VIBE during the administration of contrast; post-contrast coronal VIBE or 2D FLASH with fat saturation from the hepatic dome to the iliac crests. Optional diffusion weighted imaging and ADC may be performed. COMPARISON: [facility], MR, MR ABDOMEN WO/W CON, 02/14/2023, 7:15. FINDINGS: Image quality: Diagnostic Lower chest: Unremarkable lung bases Liver: Background hepatic steatosis, less severe than prior imaging. Multiple hypervascular liver lesions again seen, for example segment 8 lesion measures 1.3 cm 04/24. Lesion adjacent to the gallbladder fossa measures 1.1 cm (). A few other smaller hypervascular lesions are present. These have similar imaging characteristics and are similar in size compared to prior imaging. There is very subtle possible retention of hepatobiliary contrast on 20 minutes delayed images. No significant diffusion restriction. Gallbladder and biliary system: Unremarkable, nondilated Pancreas: No ductal dilation Spleen: Possible cyst again seen, slightly smaller. Adrenals: No discrete nodules Kidneys: No solid mass. No hydronephrosis. Vessels and lymph nodes: No abdominal aortic aneurysm. No pathologic lymph nodes by size criteria. Bowel and peritoneum: No small bowel obstruction. No pathologic ascites. Body wall: Mild rectus diastasis and fat containing umbilical hernia. Bones: No acute or suspicious osseous finding. IMPRESSION: Generally stable hypervascular liver lesions. Subtle retention of hepatobiliary contrast. These areas do not show significant T2 signal. Findings favored to represent benign focal nodular hyperplasia, less likely inflammatory adenoma (which can sometimes have subtle peripheral hepatobiliary contrast retention on 20 minutes delayed.) Background hepatic steatosis is less severe than prior imaging. Dictated by: Neel Leonard M.D. on 03/19/2024 at 9:08 Approved by: Neel Leonard M.D. on 03/19/2024 at 9:17
== END ==
PROVIDERS: PCP Family Medicine; Referring Provider Nurse Practitioner; Visit Provider Nurse Practitioner
DX: K76.89 Other specified diseases of liver (principal); K76.0 Fatty (change of) liver, not elsewhere classified; K42.9 Umbilical hernia without obstruction or gangrene; M62.08 Separation of muscle (nontraumatic), other site
CPT/HCPCS: 74183; A9579